=== PATIENT | male | born 1945 | race Caucasian/White ===

== ENCOUNTER → 2016-11-18 | Outpatient (REF) | payer MEDICARE, OTHER ==
[~2016-11-18] MED LIST: ACTO30TA7 PO; AMLO5TAB2 PO; ASPI81TA85 PO; AUGM875T27 PO; CHLO25TA PO; K-TA1TAB PO; MAGN64TASA PO; METF500T PO; NOVO70IN SC; OMEP40CA2 PO; SIMV10TA2 PO; VENL25TA2 PO; VENL75TA2 PO; VICO5TA PO; ZOCO10TA PO
[2016-11-18 12:54] LABS: BASO % 0.5 % (0.0-1.0); EOS # 0.2 K/mm3 (0.0-0.50); EOS % 3.3 % (0.0-3.0); LARGE UNSTAINED CELL # 0.2 K/mm3 (0.0-0.4); LYMPH # 1.6 K/mm3 (1.5-4.5); LYMPH % 32.3 % (24.0-44.0); MEAN CORPUSCULAR HEMOGLOBIN 25.4 pg (27.0-33.0); MEAN CORPUSCULAR HGB CONC 30.4 g/dl (32.0-36.5); MEAN CORPUSCULAR VOLUME 83.5 fl (80.0-96.0); MONO # 0.4 K/mm3 (0.0-0.8); MONO % 9.1 % (0.0-5.0); NEUTROPHILS # 2.5 K/mm3 (1.8-7.7); NEUTROPHILS % 50.7 % (36.0-66.0); PLATELET COUNT, AUTOMATED 367 k/mm3 (150-450); RED CELL DISTRIBUTION WIDTH 15.2 % (11.5-14.5); WHITE BLOOD COUNT 4.8 K/mm3 (4.0-10.0)
[2016-11-18 13:01] LABS: ALBUMIN 3.9 GM/DL (3.2-5.2); ALBUMIN/GLOBULIN RATIO 1.22 (1.00-1.93); BILIRUBIN,TOTAL 0.4 MG/DL (0.2-1.0); CREATININE FOR GFR 1.66 MG/DL (0.70-1.30); GLOMERULAR FILTRATION RATE 43.8 (>42); POTASSIUM SERUM 4.8 MEQ/L (3.5-5.1); TOTAL PROTEIN 7.1 GM/DL (6.4-8.2)
[2016-11-19 13:53] LABS: FREE T4 0.98 NG/DL (0.76-1.46)
== END ==
LOC: M SFHCADAM 09:24
PROVIDERS: ATTEND Family Medicine
DX: Z00.00 Encounter for general adult medical examination without abnormal findings (principal); E11.9 Type 2 diabetes mellitus without complications; R00.0 Tachycardia, unspecified

== ENCOUNTER → 2016-12-23 | Outpatient (REF) | payer MEDICARE, OTHER ==
[2016-12-23 18:26] LABS: PERCENT SATURATION 7.5 % (19.7-37.4)
[2016-12-24 13:49] LABS: FREE T4 0.91 NG/DL (0.76-1.46)
== END ==
LOC: M LAB REF 17:23
PROVIDERS: ATTEND Internal Medicine Nephrology
DX: R00.0 Tachycardia, unspecified (principal); D64.9 Anemia, unspecified

== ENCOUNTER 2017-01-05 07:52 | Outpatient (CLI) | payer MEDICARE, BC, OTHER ==
[~2017-01-05] VITALS: Ht 174 cm; Wt 81.8 kg
[2017-01-05] MEDS ORDERED: UROCTAB2 PO (08:32)
[2017-01-05] MEDS ORDERED: BISO5TAB5 PO (08:32)
[2017-01-05] MEDS ORDERED: JANU25TA PO (08:34)
[2017-01-05] MEDS ORDERED: INSUDET SC (08:34)
[2017-01-05] MEDS ORDERED: LOSA25TA8 PO (08:37)
[2017-01-05] MEDS ORDERED: VITA200016 PO (08:40)
[2017-01-05] MEDS ORDERED: IRON SUCROSE 25 MG in NS 50 ML IV ONE (09:00)
[2017-01-05] MEDS ORDERED: IRON SUCROSE 475 MG in NS 250 ML IV ONE (10:00)
== END 2017-01-05 13:10 | disposition home or self-care (01) ==
LOC: M INFU 07:52
PROVIDERS: ATTEND Internal Medicine Nephrology
DX: D50.9 Iron deficiency anemia, unspecified (principal); Z79.899 Other long term (current) drug therapy; Z79.82 Long term (current) use of aspirin; Z79.4 Long term (current) use of insulin; Z88.8 Allergy status to other drugs, medicaments and biological substances; Z91.040 Latex allergy status
CPT/HCPCS: 96365; 96366; J1756

== ENCOUNTER → 2017-02-23 | Outpatient (CLI) | payer MEDICARE, OTHER ==
[~2017-02-23] MED LIST changes: +BISO5TAB5 PO; +INSUDET SC; +JANU25TA PO; +LOSA25TA8 PO; +UROCTAB2 PO; +VITA200016 PO
== END ==
LOC: M LAB 17:34
PROVIDERS: ATTEND Internal Medicine Cardiovascular Disease
DX: R07.9 Chest pain, unspecified (principal)

== ENCOUNTER → 2017-03-09 | Outpatient (REF) | payer MEDICARE, OTHER | LOC: M LABDRAW1 15:39 | PROVIDERS: ATTEND Family Medicine | DX: H90.3 Sensorineural hearing loss, bilateral (principal); E11.9 Type 2 diabetes mellitus without complications ==

== ENCOUNTER → 2017-03-09 | Outpatient (REF) | payer MEDICARE, OTHER ==
[2017-03-09 16:15] LABS: CREATININE FOR GFR 1.48 MG/DL (0.70-1.30)
== END ==
LOC: M LABDRAW1 15:38
PROVIDERS: ATTEND Otolaryngology
DX: H90.3 Sensorineural hearing loss, bilateral (principal)

== ENCOUNTER → 2017-03-18 | Outpatient (CLI) | payer MEDICARE, BC, OTHER ==
--- NOTE | 2017-03-18 11:49 | REP ---
Chest two views HISTORY: Dyspnea Comparison: 12/02/2014 The lungs are clear. The heart is normal in size. The pulmonary vasculature is normal in appearance. A hiatal hernia is present. The bony structure is intact. IMPRESSION: No acute disease. Signed by Ricki Madison MD 03/18/2017 11:41 A
== END ==
LOC: M RAD 10:54
PROVIDERS: ATTEND Family Medicine
DX: R06.09 Other forms of dyspnea (principal)

== ENCOUNTER → 2017-03-18 | Outpatient (CLI) | payer MEDICARE, BC, OTHER ==
--- NOTE | 2017-03-18 13:08 | REP ---
MRI INTERNAL AUDITORY CANALS WITHOUT AND WITH CONTRAST: HISTORY: Sensorineural hearing loss. CONTRAST: ProHance 8 mL. COMPARISON: 07/13/2013. Areas of increased signal intensity on T2-weighted images are present in the basal ganglia. These represent old lacunar infarctions. Areas of increased signal intensity on T2-weighted images present in the periventricular and subcortical white matter and aster. This represents small vessel ischemic disease. There is no intraparenchymal hemorrhage, acute infarct, mass, or midline shift. The sella turcica is partially empty. There is no abnormal enhancement. The ventricular system and cortical sulci are dilated consistent with minimal volume loss. There is no extracerebral collection. There is no cerebellopontine angle mass. The inner ear structures are normal in appearance. The mastoid air cells are clear. Mucosal thickening is present in the maxillary sinuses. A right ocular prosthesis is present. IMPRESSION: 1. Old bilateral basal ganglia lacunar infarctions. 2. Small vessel ischemic disease. 3. Minimal volume loss. Signed by Ricki Madison MD 03/18/2017 01:34 P
== END ==
LOC: M RAD 10:59
PROVIDERS: ATTEND Otolaryngology
DX: R06.09 Other forms of dyspnea (principal); H90.3 Sensorineural hearing loss, bilateral
CPT/HCPCS: 70553; 71020; A9576

== ENCOUNTER → 2017-06-15 | Outpatient (REF) | payer MEDICARE, BC, OTHER ==
[~2017-06-15] MED LIST changes: +ACTO30TA15 PO; -ACTO30TA7 PO; -AUGM875T27 PO; +AUGM875T28 PO; +NOVO1INJ4 SC; -NOVO70IN SC
== END ==
LOC: M LABDRAW1 13:33
PROVIDERS: ATTEND Family Medicine
DX: E11.9 Type 2 diabetes mellitus without complications (principal)

== ENCOUNTER → 2017-09-02 | Outpatient (REF) | payer MEDICARE, OTHER | LOC: M SFHCADAM 18:12 | PROVIDERS: ATTEND Family Medicine | DX: E11.9 Type 2 diabetes mellitus without complications (principal) ==

== ENCOUNTER → 2017-12-08 | Outpatient (REF) | payer MEDICARE, OTHER ==
[2017-12-08 16:01] LABS: ALBUMIN 3.7 GM/DL (3.2-5.2); ALBUMIN/GLOBULIN RATIO 1.09 (1.00-1.93); ALKALINE PHOSPHATASE 68 U/L (45-117); ALT/SGPT 34 U/L (12-78); ANION GAP 9 MEQ/L (8-16); AST/SGOT 23 U/L (7-37); BILIRUBIN,TOTAL 0.4 MG/DL (0.2-1.0); BLOOD UREA NITROGEN 24 MG/DL (7-18); CALCIUM LEVEL 9.2 MG/DL (8.8-10.2); CARBON DIOXIDE LEVEL 28 MEQ/L (21-32); CHLORIDE LEVEL 102 MEQ/L (98-107); CREATININE FOR GFR 1.56 MG/DL (0.70-1.30); GLOMERULAR FILTRATION RATE 46.9 (>42); GLUCOSE, FASTING 167 MG/DL (70-100); POTASSIUM SERUM 4.3 MEQ/L (3.5-5.1); SODIUM LEVEL 139 MEQ/L (136-145); TOTAL PROTEIN 7.1 GM/DL (6.4-8.2)
[2017-12-08 16:04] LABS: ESTIMATED AVERAGE GLUCOSE 206 MG/DL (60-110); HEMOGLOBIN A1c 8.8 %
== END ==
LOC: M LABDRAW1 14:55
DX: E11.69 Type 2 diabetes mellitus with other specified complication (principal)
CPT/HCPCS: 80053

== ENCOUNTER → 2017-12-25 | Outpatient (REF) | payer MEDICARE, OTHER ==
[2017-12-25 13:03] LABS: ALBUMIN 3.8 GM/DL (3.2-5.2); ALBUMIN/GLOBULIN RATIO 1.09 (1.00-1.93); ALKALINE PHOSPHATASE 62 U/L (45-117); ALT/SGPT 31 U/L (12-78); ANION GAP 6 MEQ/L (8-16); AST/SGOT 18 U/L (7-37); BILIRUBIN,TOTAL 0.5 MG/DL (0.2-1.0); BLOOD UREA NITROGEN 20 MG/DL (7-18); CALCIUM LEVEL 8.8 MG/DL (8.8-10.2); CARBON DIOXIDE LEVEL 30 MEQ/L (21-32); CHLORIDE LEVEL 103 MEQ/L (98-107); CREATININE FOR GFR 1.61 MG/DL (0.70-1.30); GLOMERULAR FILTRATION RATE 45.3 (>42); GLUCOSE, FASTING 174 MG/DL (70-100); POTASSIUM SERUM 4.7 MEQ/L (3.5-5.1); SODIUM LEVEL 139 MEQ/L (136-145); TOTAL PROTEIN 7.3 GM/DL (6.4-8.2)
[2017-12-25 13:34] LABS: ESTIMATED AVERAGE GLUCOSE 212 MG/DL (60-110)
== END ==
LOC: M SFHCADAM 09:33
DX: E11.69 Type 2 diabetes mellitus with other specified complication (principal)
CPT/HCPCS: 80053

== ENCOUNTER → 2017-12-29 | Outpatient (CLI) | payer MEDICARE, BC, OTHER | LOC: M RAD 12:57 | DX: G44.52 New daily persistent headache (NDPH) (principal); I73.9 Peripheral vascular disease, unspecified; G93.9 Disorder of brain, unspecified | CPT/HCPCS: 70551 ==

== ENCOUNTER → 2018-04-01 | Outpatient (REF) | payer MEDICARE, OTHER ==
[2018-04-01 20:33] LABS: ESTIMATED AVERAGE GLUCOSE 200 MG/DL (60-110); HEMOGLOBIN A1c 8.6 %
== END ==
LOC: M SFHCADAM 13:17
DX: E11.69 Type 2 diabetes mellitus with other specified complication (principal)
CPT/HCPCS: 83036

== ENCOUNTER → 2018-06-25 | Outpatient (REF) | payer MEDICARE, OTHER ==
[2018-06-25 20:48] LABS: ESTIMATED AVERAGE GLUCOSE 189 MG/DL (60-110); HEMOGLOBIN A1c 8.2 %
== END ==
LOC: M SFHCADAM 11:23
DX: E11.69 Type 2 diabetes mellitus with other specified complication (principal)
CPT/HCPCS: 83036

== ENCOUNTER → 2018-10-06 | Outpatient (REF) | payer MEDICARE, OTHER ==
[~2018-10-06] MED LIST changes: +AMLO5TAB4 PO; +LOSA25TA33 PO; -LOSA25TA8 PO
[2018-10-06 13:59] LABS: HEMOGLOBIN A1c 8.5 %
== END ==
LOC: M SFHCADAM 08:04
PROVIDERS: ATTEND Family Medicine
DX: E11.9 Type 2 diabetes mellitus without complications (principal)

== ENCOUNTER → 2019-01-06 | Outpatient (REF) | payer MEDICARE, OTHER ==
[~2019-01-06] MED LIST changes: -AMLO5TAB4 PO; +AMLO5TAB6 PO; +LOSA25TA14 PO; -LOSA25TA33 PO
== END ==
LOC: M SFHCADAM 09:19
PROVIDERS: ATTEND Family Medicine
DX: E11.9 Type 2 diabetes mellitus without complications (principal)

== ENCOUNTER → 2019-04-20 | Outpatient (REF) | payer MEDICARE, OTHER ==
[~2019-04-20] MED LIST changes: +CHLO125TA PO; -CHLO25TA PO
[2019-04-20 19:50] LABS: HEMOGLOBIN A1c 8.4 %
== END ==
LOC: M SFHCADAM 11:49
PROVIDERS: ATTEND Family Medicine
DX: E11.9 Type 2 diabetes mellitus without complications (principal)
CPT/HCPCS: 83036; G0463

== ENCOUNTER → 2019-07-26 | Outpatient (REF) | payer MEDICARE, OTHER ==
[~2019-07-26] MED LIST changes: -BISO5TAB5 PO; +BISO5TAB9 PO
[2019-07-26 14:41] LABS: HEMOGLOBIN A1c 8.3 %
== END ==
LOC: M SFHCADAM 11:03
PROVIDERS: ATTEND Family Medicine
DX: E11.69 Type 2 diabetes mellitus with other specified complication (principal)

== ENCOUNTER → 2019-11-02 | Outpatient (REF) | payer MEDICARE, OTHER ==
[~2019-11-02] MED LIST changes: +BISO5TAB14 PO; -BISO5TAB9 PO; +OMEP40CA97 PO
[2019-11-02 13:00] LABS: ALBUMIN 3.6 GM/DL (3.2-5.2); BILIRUBIN,TOTAL 0.5 MG/DL (0.2-1.0); CALCIUM LEVEL 8.7 MG/DL (8.8-10.2); CREATININE FOR GFR 1.44 MG/DL (0.70-1.30); GLOMERULAR FILTRATION RATE 51.2 (>42); POTASSIUM SERUM 4.2 MEQ/L (3.5-5.1); TOTAL PROTEIN 6.8 GM/DL (6.4-8.2)
[2019-11-02 14:56] LABS: HEMOGLOBIN A1c 8.7 %
== END ==
LOC: M SFHCADAM 09:44
PROVIDERS: ATTEND Family Medicine
DX: E11.69 Type 2 diabetes mellitus with other specified complication (principal)

== ENCOUNTER → 2019-11-15 | Outpatient (REF) | payer MEDICARE, OTHER ==
[2019-11-15 13:37] LABS: APPEARANCE, URINE CLEAR (CLEAR); BACTERIA, URINE AUTO NEGATIVE (NEGATIVE); BILIRUBIN, URINE AUTO NEGATIVE (NEGATIVE); BLOOD, URINE BLOOD NEGATIVE (NEGATIVE); COLOR, URINE YELLOW (YELLOW); GLUCOSE, URINE (UA) AUTO 3+ mg/dL (NEGATIVE); KETONE, URINE AUTO TRACE mg/dL (NEGATIVE); LEUKOCYTE ESTERASE, URINE AUTO NEGATIVE (NEGATIVE); MUCUS, URINE SMALL (NEGATIVE); NITRITE, URINE AUTO NEGATIVE (NEGATIVE); PROTEIN, URINE AUTO NEGATIVE (NEGATIVE); RBC, URINE AUTO 1 /HPF (0-3); SQUAMOUS EPITHELIAL CELL UR AU 0 /HPF (0-6); UROBILINOGEN, URINE AUTO 0.2 mg/dL (0.0-2.0); WBC, URINE AUTO 1 /HPF (0-3)
[2019-11-15 14:13] LABS: HEMOGLOBIN A1c 8.2 %
== END ==
LOC: M SFHCADAM 08:38
PROVIDERS: ATTEND Family Medicine
DX: E11.9 Type 2 diabetes mellitus without complications (principal); R39.12 Poor urinary stream; N50.819 Testicular pain, unspecified
CPT/HCPCS: 81001; 83036; G0103

== ENCOUNTER → 2020-01-16 | Outpatient (REF) | payer MEDICARE, OTHER ==
[2020-01-16 17:35] LABS: CALCIUM LEVEL 8.9 MG/DL (8.8-10.2); CREATININE FOR GFR 2.28 MG/DL (0.70-1.30); GLOMERULAR FILTRATION RATE 30.1 (>42); HEMOGLOBIN A1c 8.2 %; POTASSIUM SERUM 4.9 MEQ/L (3.5-5.1)
== END ==
LOC: M SFHCADAM 15:10
PROVIDERS: ATTEND Family Medicine
DX: E11.69 Type 2 diabetes mellitus with other specified complication (principal)

== ENCOUNTER → 2020-06-18 | Outpatient (REF) | payer MEDICARE, OTHER ==
[~2020-06-18] MED LIST changes: +AMLO1TAB24 PO; -AMLO5TAB6 PO; -ASPI81TA85 PO; +ASPI81TA86 PO
[2020-06-18 19:29] LABS: HEMATOCRIT 48.5 % (42.0-52.0); HEMOGLOBIN 16.3 g/dl (13.5-17.5); MEAN CORPUSCULAR HEMOGLOBIN 31.7 pg (27.0-33.0); MEAN CORPUSCULAR HGB CONC 33.6 g/dl (32.0-36.5); MEAN CORPUSCULAR VOLUME 94.4 fl (80.0-96.0); PLATELET COUNT, AUTOMATED 282 10^3/uL (150-450); RED BLOOD COUNT 5.14 10^6/uL (4.30-6.10); WHITE BLOOD COUNT 7.7 10^3/uL (4.0-10.0)
[2020-06-18 19:41] LABS: ALBUMIN 3.7 GM/DL (3.2-5.2); BILIRUBIN,TOTAL 0.4 MG/DL (0.2-1.0); CALCIUM LEVEL 9.7 MG/DL (8.8-10.2); CREATININE FOR GFR 1.41 MG/DL (0.70-1.30); GLOMERULAR FILTRATION RATE 52.5 (>42); POTASSIUM SERUM 4.5 MEQ/L (3.5-5.1); THYROID STIMULATING HORMONE 1.32 uIU/ML (0.358-3.740); TOTAL PROTEIN 7.2 GM/DL (6.4-8.2)
[2020-06-18 19:47] LABS: HEMOGLOBIN A1c 8.4 %
== END ==
LOC: M LABDRWAD 18:28
PROVIDERS: ATTEND Family Medicine
DX: E11.8 Type 2 diabetes mellitus with unspecified complications (principal); I10 Essential (primary) hypertension

== ENCOUNTER → 2020-08-29 | Outpatient (REF) | payer MEDICARE, OTHER ==
[2020-08-29 18:04] LABS: PERCENT SATURATION 50.5 % (19.7-50.0)
== END ==
LOC: M LAB REF 17:03
PROVIDERS: ATTEND Nurse Practitioner Family
DX: D50.9 Iron deficiency anemia, unspecified (principal)

== ENCOUNTER → 2020-09-20 | Outpatient (REF) | payer MEDICARE, OTHER ==
[2020-09-20 20:11] LABS: ALBUMIN 3.7 GM/DL (3.2-5.2); BILIRUBIN,TOTAL 0.5 MG/DL (0.2-1.0); CALCIUM LEVEL 9.3 MG/DL (8.8-10.2); CREATININE FOR GFR 1.48 MG/DL (0.70-1.30); GLOMERULAR FILTRATION RATE 49.5 (>42); POTASSIUM SERUM 4.6 MEQ/L (3.5-5.1); TOTAL PROTEIN 7.2 GM/DL (6.4-8.2)
[2020-09-20 20:36] LABS: HEMOGLOBIN A1c 8.6 %
== END ==
LOC: M SFHCADAM 16:18
PROVIDERS: ATTEND Family Medicine
DX: E11.8 Type 2 diabetes mellitus with unspecified complications (principal)

== ENCOUNTER → 2021-06-04 | Outpatient (REF) | payer MEDICARE, OTHER ==
[~2021-06-04] MED LIST changes: +OMEP40CA4 PO; -OMEP40CA97 PO
== END ==
LOC: M LAB REF 17:11
PROVIDERS: ATTEND Nurse Practitioner Family
DX: E83.42 Hypomagnesemia (principal)

== ENCOUNTER → 2021-06-14 | Outpatient (CLI) | payer MEDICARE, BC, OTHER ==
--- NOTE | 2021-06-14 15:14 | REP ---
INDICATION: STENOSIS COMPARISON: None. TECHNIQUE: Boyd scale and color Doppler evaluation using linear high frequency transducer Findings: FINDINGS: Two-dimensional boyd scale and color images demonstrate moderate atheromatous plaquing with laminar flow and no appreciable narrowing. Color Doppler interrogation demonstrates normal arterial wave patterns and velocities with no significant spectral broadening. Normal flow direction is appreciated in the bilateral vertebral arteries. ICA peak systolic velocity: Right 61.3 cm/s; Left 68.6 cm/s ICA diastolic velocity: Right 16.8 cm/s; Left 15.7 cm/s ECA peak systolic velocity: Right 70.2 cm/s; Left 68.3 cm/s CCA peak systolic velocity: Right 79.5 cm/s; Left 119 cm/s ICA/CCA ratio: Right 0.77 cm/s; Left 0.58 cm/s IMPRESSION: No hemodynamically significant areas of narrowing or stenosis appreciated. Based on set standards narrowing falls within the less than 50% range. <Electronically signed by Murphy Dawson > 06/14/21 [id number]
== END ==
LOC: M RAD 14:20
PROVIDERS: ATTEND Nurse Practitioner Family
DX: I65.22 Occlusion and stenosis of left carotid artery (principal)

== ENCOUNTER → 2021-06-28 | Outpatient (CLI) | payer MEDICARE, BC, OTHER ==
--- NOTE | 2021-06-28 14:29 | REP ---
INDICATION: PAIN IN RT SHOULDER. COMPARISON: None. TECHNIQUE: Multiple views FINDINGS: The acromioclavicular and glenohumeral relationships are within normal limits. There is no acute fracture, dislocation, or subluxation. IMPRESSION: Within normal limits <Electronically signed by Robin Randle > 06/28/21 [id number]
== END ==
LOC: M SOG 13:36
PROVIDERS: ATTEND Orthopaedic Surgery Sports Medicine
DX: M25.511 Pain in right shoulder (principal)

== ENCOUNTER → 2021-12-25 | Outpatient (REF) | payer MEDICARE, BC, OTHER ==
[~2021-12-25] MED LIST changes: +LOSA25TA13 PO; -LOSA25TA14 PO
[2021-12-25 13:14] LABS: HEMATOCRIT 47.7 % (42.0-52.0); HEMOGLOBIN 16.1 g/dl (13.5-17.5); MEAN CORPUSCULAR HEMOGLOBIN 31.4 pg (27.0-33.0); MEAN CORPUSCULAR HGB CONC 33.8 g/dl (32.0-36.5); MEAN CORPUSCULAR VOLUME 93.2 fl (80.0-96.0); PLATELET COUNT, AUTOMATED 236 10^3/uL (150-450); RED BLOOD COUNT 5.12 10^6/uL (4.30-6.10); WHITE BLOOD COUNT 6.2 10^3/uL (4.0-10.0)
[2021-12-25 14:37] LABS: ALBUMIN 3.6 GM/DL (3.2-5.2); BILIRUBIN,TOTAL 0.6 MG/DL (0.2-1.0); CALCIUM LEVEL 9.1 MG/DL (8.8-10.2); CHOLESTEROL RISK RATIO 1.884 (<5); CREATININE FOR GFR 1.51 MG/DL (0.70-1.30); GLOMERULAR FILTRATION RATE 48.2 (>42); POTASSIUM SERUM 4.3 MEQ/L (3.5-5.1)
[2021-12-25 14:45] LABS: MAU/CREAT RATIO 225.7 MCG/MG (0.0-30.0)
== END ==
LOC: M LABDRWAD 12:36
PROVIDERS: ATTEND Internal Medicine Endocrinology, Diabetes & Metabolism
DX: E11.65 Type 2 diabetes mellitus with hyperglycemia (principal)

== ENCOUNTER → 2022-05-29 | Outpatient (REF) | payer MEDICARE, OTHER ==
[~2022-05-29] MED LIST changes: +SIMV-252 PO; -ZOCO10TA PO
[2022-05-29 16:36] LABS: BASO % 0.4 % (0.0-1.0); HEMATOCRIT 47.8 % (42.0-52.0); HEMOGLOBIN 15.9 g/dl (13.5-17.5); MEAN CORPUSCULAR HEMOGLOBIN 31.3 pg (27.0-33.0); MEAN CORPUSCULAR HGB CONC 33.3 g/dl (32.0-36.5); MEAN CORPUSCULAR VOLUME 94.1 fl (80.0-96.0); NEUTROPHILS % 71.4 % (36.0-66.0); PLATELET COUNT, AUTOMATED 269 10^3/uL (150-450); RED BLOOD COUNT 5.08 10^6/uL (4.30-6.10); WHITE BLOOD COUNT 9.8 10^3/uL (4.0-10.0)
[2022-05-29 16:37] LABS: EOS # 0.1 10^3/uL (0.0-0.5); LYMPH # 1.5 10^3/uL (1.5-5.0); MONO # 1.2 10^3/uL (0.0-0.8)
[2022-05-29 17:47] LABS: ALBUMIN 3.7 GM/DL (3.2-5.2); BILIRUBIN,TOTAL 0.7 MG/DL (0.2-1.0); CALCIUM LEVEL 9.4 MG/DL (8.8-10.2); CREATININE FOR GFR 1.46 MG/DL (0.70-1.30); GLOMERULAR FILTRATION RATE 50.1 (>42); POTASSIUM SERUM 4.7 MEQ/L (3.5-5.1); TOTAL PROTEIN 7.3 GM/DL (6.4-8.2)
== END ==
LOC: M SFHCADAM 14:27
PROVIDERS: ATTEND Family Medicine
DX: Z01.818 Encounter for other preprocedural examination (principal); Z79.899 Other long term (current) drug therapy

== ENCOUNTER → 2022-08-21 | Outpatient (CLI) | payer MEDICARE, BC, OTHER | LOC: M RAD 12:21 | PROVIDERS: ATTEND Nurse Practitioner Family | DX: N18.31 Chronic kidney disease, stage 3a (principal); N28.1 Cyst of kidney, acquired; N13.30 Unspecified hydronephrosis ==

== ENCOUNTER → 2022-09-08 | Outpatient (REF) | payer MEDICARE, OTHER ==
[2022-09-08 16:22] LABS: BASO % 0.5 % (0.0-1.0); EOS # 0.2 10^3/uL (0.0-0.5); EOS % 1.9 % (0.0-3.0); HEMATOCRIT 50.9 % (42.0-52.0); HEMOGLOBIN 16.4 g/dl (13.5-17.5); LYMPH # 1.7 10^3/uL (1.5-5.0); LYMPH % 21.9 % (24.0-44.0); MEAN CORPUSCULAR HEMOGLOBIN 31.6 pg (27.0-33.0); MEAN CORPUSCULAR HGB CONC 32.2 g/dl (32.0-36.5); MEAN CORPUSCULAR VOLUME 98.1 fl (80.0-96.0); MONO % 12.8 % (2.0-8.0); NEUTROPHILS % 62.6 % (36.0-66.0); PLATELET COUNT, AUTOMATED 279 10^3/uL (150-450); RED BLOOD COUNT 5.19 10^6/uL (4.30-6.10); WHITE BLOOD COUNT 7.9 10^3/uL (4.0-10.0)
[2022-09-08 16:33] LABS: ALBUMIN 3.5 G/DL (3.2-5.2); BILIRUBIN,TOTAL 0.7 MG/DL (0.3-1.2); CALCIUM LEVEL 9.5 MG/DL (8.3-10.6); CREATININE FOR GFR 1.52 MG/DL (0.70-1.30); GLOMERULAR FILTRATION RATE 47.7 (>42); POTASSIUM SERUM 4.9 MMOL/L (3.5-5.1); THYROID STIMULATING HORMONE 1.342 uIU/ML (0.55-4.78); TOTAL PROTEIN 6.5 G/DL (5.7-8.2)
[2022-09-08 19:58] LABS: HEMOGLOBIN A1c 8.8 % (4.0-6.0)
== END ==
LOC: M SFHCADAM 14:29
PROVIDERS: ATTEND Family Medicine
DX: E11.9 Type 2 diabetes mellitus without complications (principal); R19.7 Diarrhea, unspecified; R06.00 Dyspnea, unspecified

== ENCOUNTER → 2022-09-08 | Outpatient (CLI) | payer MEDICARE, OTHER | LOC: M ADAMS 14:33 | PROVIDERS: ATTEND Family Medicine | DX: R06.00 Dyspnea, unspecified (principal); R19.7 Diarrhea, unspecified; E11.9 Type 2 diabetes mellitus without complications ==

== ENCOUNTER → 2022-09-16 | Outpatient (CLI) | payer MEDICARE, BC, OTHER ==
[~2022-09-16] MED LIST changes: +ISOVUE-370 76% 100ML VIAL As Ordered ONE
== END ==
LOC: M RAD 08:24
PROVIDERS: ATTEND Family Medicine
DX: N13.30 Unspecified hydronephrosis (principal); N20.0 Calculus of kidney; N28.1 Cyst of kidney, acquired; K44.9 Diaphragmatic hernia without obstruction or gangrene; K57.30 Diverticulosis of large intestine without perforation or abscess without bleeding
CPT/HCPCS: 74178; Q9967

== ENCOUNTER → 2023-04-08 | Outpatient (REF) | payer MEDICARE, OTHER ==
[~2023-04-08] MED LIST changes: -ISOVUE-370 76% 100ML VIAL As Ordered ONE
[2023-04-08 16:20] LABS: BASO % 0.3 % (0.0-1.0); EOS # 0.3 10^3/uL (0.0-0.5); EOS % 3.7 % (0.0-3.0); HEMATOCRIT 51.3 % (42.0-52.0); HEMOGLOBIN 17.1 g/dl (13.5-17.5); LYMPH # 1.7 10^3/uL (1.5-5.0); LYMPH % 24.8 % (24.0-44.0); MEAN CORPUSCULAR HEMOGLOBIN 31.4 pg (27.0-33.0); MEAN CORPUSCULAR HGB CONC 33.3 g/dl (32.0-36.5); MEAN CORPUSCULAR VOLUME 94.3 fl (80.0-96.0); MONO # 1.1 10^3/uL (0.0-0.8); MONO % 15.4 % (2.0-8.0); NEUTROPHILS # 3.9 10^3/uL (1.5-8.5); NEUTROPHILS % 55.7 % (36.0-66.0); PLATELET COUNT, AUTOMATED 278 10^3/uL (150-450); RED BLOOD COUNT 5.44 10^6/uL (4.30-6.10)
[2023-04-08 16:47] LABS: ALBUMIN 3.7 G/DL (3.2-5.2); BILIRUBIN,TOTAL 0.5 MG/DL (0.3-1.2); CALCIUM LEVEL 9.5 MG/DL (8.3-10.6); CREATININE FOR GFR 1.39 MG/DL (0.70-1.30); GLOMERULAR FILTRATION RATE 52.9 (>42); MAGNESIUM LEVEL 1.8 MG/DL (1.8-2.4); POTASSIUM SERUM 4.6 MMOL/L (3.5-5.1); TOTAL PROTEIN 6.9 G/DL (5.7-8.2)
[2023-04-08 16:48] LABS: FREE T4 0.96 NG/DL (0.89-1.76); THYROID STIMULATING HORMONE 0.834 uIU/ML (0.55-4.78)
== END ==
LOC: M SFHCADAM 15:12
PROVIDERS: ATTEND Physician Assistant
DX: R06.02 Shortness of breath (principal); R53.83 Other fatigue; M62.81 Muscle weakness (generalized); R26.89 Other abnormalities of gait and mobility; N18.31 Chronic kidney disease, stage 3a

== ENCOUNTER → 2023-04-08 | Outpatient (CLI) | payer MEDICARE, OTHER | LOC: M ADAMS 15:23 | PROVIDERS: ATTEND Physician Assistant | DX: R06.02 Shortness of breath (principal); K44.9 Diaphragmatic hernia without obstruction or gangrene ==

== ENCOUNTER → 2023-04-22 | Outpatient (REF) | payer MEDICARE, OTHER | LOC: M SFHCADAM 14:25 | PROVIDERS: ATTEND Physician Assistant | DX: R53.83 Other fatigue (principal) ==

== ENCOUNTER → 2023-04-29 | Outpatient (CLI) | payer MEDICARE, BC, OTHER | LOC: M RAD 14:29 | PROVIDERS: ATTEND Physician Assistant | DX: M62.81 Muscle weakness (generalized) (principal); R26.89 Other abnormalities of gait and mobility ==

== ENCOUNTER 2023-07-11 12:52 | Inpatient (IN) | payer MEDICARE, BC, OTHER ==
[~2023-07-11] VITALS: Ht 175.3 cm; Wt 69.5 kg
[~2023-07-11 12:52] MED LIST changes: +ACET-683 PO; +ACET32TAB PO; +AMIT10TA7 PO; +ASPI81TA26 PO; +BENZ-18 PO; +BENZ1LOZ2 PO; +ENOX40IN3 SC; +GABA-1171 PO; +GLUCLIQ37 PO; +HUMA100I5 SC; +LANTINJ4 SC; +LEVO1TAB39 PO; +MELO15TA28 PO; +MM S100C PO; +MONU5.636 PO; +NYST-38 SS; +PANT40TA29 PO; +PRED10TA2 PO; +ROSU20TA61 PO; +SENN-186 PO; +TRAM50TA2 PO
[2023-07-11] MEDS ORDERED: MOM 30ML SUSPENSION UDC PO PRN (14:25)
[2023-07-11] MEDS ORDERED: GLUCOSE 4GM CHEW TABLET PO PRN (14:40)
[2023-07-11] MEDS ORDERED: SODIUM CHLORIDE 0.9% INJ 10 ML SYR IV PRN (14:40)
[2023-07-11] MEDS ORDERED: CEPACOL LOZENGE PO PRN (14:40)
[2023-07-11] MEDS ORDERED: GLUCAGON INJ 1MG VIAL SC PRN (14:40)
[2023-07-11] MEDS ORDERED: MAGIC MOUTHWASH SUSPENSION BTL SSP PRN (14:40)
[2023-07-11 15:14] VITALS: BP 134/75; TEMP 97.7; O2SAT 90
[2023-07-11] MEDS: BENZONATATE 100MG CAPSULE PO SCH ×2 (16:28→21:39)
[2023-07-11] MEDS: NYSTATIN 500,000U/5ML SUSP UDC SS SCH ×2 (16:28→21:39)
[2023-07-11] MEDS: HEPARIN SOD (PORCINE) 5000UNITS/ML 1ML VIAL/SYRINGE SQ SCH ×2 (16:28→21:40)
[2023-07-11] MEDS: ASPIRIN 325 MG TAB PO SCH (16:32)
[2023-07-11 16:44] LABS: INR 1.12; PARTIAL THROMBOPLASTIN TIME 31.6 SECONDS (24.8-34.2); PROTHROMBIN TIME 14.1 SECONDS (12.5-14.5)
[2023-07-11] MEDS ORDERED: NEOSPORIN OINT 0.9 GM PKT TOP STA (17:07)
[2023-07-11] MEDS: INSULIN LISPRO (NovoLOG) PER UNIT SC SCH ×2 (17:12→21:00)
[2023-07-11] MEDS ORDERED: SODIUM CHLORIDE 0.9% INJ 10 ML SYR IV SCH (18:00)
[2023-07-11] MEDS: BISACODYL 10MG SUPP PR SCH (18:15)
[2023-07-11 20:36] VITALS: BP 134/76; TEMP 97.5; O2SAT 96
[2023-07-11] MEDS ORDERED: GABAPENTIN 100 MG CAP PO SCH (21:00)
[2023-07-11] MEDS: ACETAMINOPHEN 500 MG TAB PO SCH (21:39)
[2023-07-11] MEDS: DOCUSATE SODIUM 100MG CAPSULE PO SCH (21:39)
[2023-07-11] MEDS: GABAPENTIN 100 MG CAP PO SCH (21:39)
[2023-07-11] MEDS: METAMUCIL (PSYLLIUM) PACKET PO SCH (21:40)
[2023-07-11] MEDS: MIRALAX *UNIT DOSE* 17GM PACKET PO SCH (21:40)
[2023-07-11] MEDS: LEVEMIR (INSULIN DETEMIR) 1 UNITS/0.01ML SC SCH (21:40)
[2023-07-11] MEDS: QUEtiapine FUMARATE 12.5 MG HALF-TAB PO SCH (21:42)
[2023-07-11] MEDS: SENNA 8.6 MG TAB (SENOKOT) PO SCH (21:42)
[2023-07-11] MEDS ORDERED: CEFEPIME HCL 1 GM in D5W MINI-BAG PLUS 50 ML IV SCH (23:00)
[2023-07-12] VITALS (10 sets, daily range): BP systolic 116–125; BP diastolic 71–81; TEMP 97.3–98.2; O2SAT 90–98
[2023-07-12] MEDS: HEPARIN SOD (PORCINE) 5000UNITS/ML 1ML VIAL/SYRINGE SQ SCH ×3 (05:34→21:18)
[2023-07-12 06:13] LABS: BASO % 0.2 % (0.0-1.0); EOS # 0.2 10^3/uL (0.0-0.5); EOS % 1.8 % (0.0-3.0); HEMATOCRIT 29.4 % (42.0-52.0); HEMOGLOBIN 9.2 g/dl (13.5-17.5); LYMPH # 1.5 10^3/uL (1.5-5.0); LYMPH % 17.1 % (24.0-44.0); MEAN CORPUSCULAR HEMOGLOBIN 27.7 pg (27.0-33.0); MEAN CORPUSCULAR HGB CONC 31.3 g/dl (32.0-36.5); MEAN CORPUSCULAR VOLUME 88.6 fl (80.0-96.0); MONO # 0.9 10^3/uL (0.0-0.8); MONO % 10.3 % (2.0-8.0); NEUTROPHILS # 6.3 10^3/uL (1.5-8.5); PLATELET COUNT, AUTOMATED 353 10^3/uL (150-450); RED BLOOD COUNT 3.32 10^6/uL (4.30-6.10)
[2023-07-12 06:42] LABS: ERYTHROCYTE SEDIMENTATION RATE 113 mm/hr (0-20)
[2023-07-12 06:43] LABS: BLOOD UREA NITROGEN 20 MG/DL (9-23); CALCIUM LEVEL 8.1 MG/DL (8.3-10.6); CARBON DIOXIDE LEVEL 29 MMOL/L (20-31); CHLORIDE LEVEL 104 MMOL/L (98-107); CREATININE FOR GFR 0.83 MG/DL (0.70-1.30); GLOMERULAR FILTRATION RATE > 60.0 (>42); GLUCOSE, FASTING 115 MG/DL (74-106); POTASSIUM SERUM 4.4 MMOL/L (3.5-5.1); SODIUM LEVEL 137 MMOL/L (136-145)
[2023-07-12] MEDS: INSULIN LISPRO (NovoLOG) PER UNIT SC SCH ×4 (07:30→21:00)
[2023-07-12] MEDS ORDERED: PANTOPRAZOLE 40MG TAB (PROTONIX) PO SCH (09:00)
[2023-07-12] MEDS: NYSTATIN 500,000U/5ML SUSP UDC SS SCH ×3 (09:00→21:17)
[2023-07-12] MEDS: METAMUCIL (PSYLLIUM) PACKET PO SCH ×2 (09:00→21:00)
[2023-07-12] MEDS: ACETAMINOPHEN 500 MG TAB PO SCH ×2 (09:41→21:17)
[2023-07-12] MEDS: VENLAFAXINE 37.5 MG TAB PO SCH (09:42)
[2023-07-12] MEDS: BENZONATATE 100MG CAPSULE PO SCH ×3 (10:19→21:17)
[2023-07-12] MEDS: ATORVASTATIN 20 MG TAB PO SCH (10:19)
[2023-07-12] MEDS: DOCUSATE SODIUM 100MG CAPSULE PO SCH ×2 (10:19→21:00)
[2023-07-12] MEDS: ASPIRIN 325 MG TAB PO SCH (10:19)
[2023-07-12] MEDS: PANTOPRAZOLE 40MG TAB (PROTONIX) PO SCH (10:19)
[2023-07-12] MEDS: GABAPENTIN 100 MG CAP PO SCH ×2 (10:19→21:18)
[2023-07-12] MEDS: MIRALAX *UNIT DOSE* 17GM PACKET PO SCH ×2 (10:20→21:00)
[2023-07-12] MEDS: AVIBACTAM IV SCH ×2 (10:35→18:30)
[2023-07-12] MEDS: D5W MINI IV SCH ×2 (10:35→18:30)
[2023-07-12] MEDS: CEFTAZIDIME IV SCH ×2 (10:35→18:30)
[2023-07-12] MEDS ORDERED: ISOVUE-370 76% 100ML VIAL As Ordered ONE (12:06)
[2023-07-12] MEDS: BISACODYL 10MG SUPP PR SCH (17:31)
[2023-07-12] MEDS: SENNA 8.6 MG TAB (SENOKOT) PO SCH (21:00)
[2023-07-12] MEDS: QUEtiapine FUMARATE 12.5 MG HALF-TAB PO SCH (21:17)
[2023-07-12] MEDS: LEVEMIR (INSULIN DETEMIR) 1 UNITS/0.01ML SC SCH (21:20)
[2023-07-13] VITALS (7 sets, daily range): BP systolic 119–156; BP diastolic 71–95; TEMP 97.7–98.6; O2SAT 93–98
[2023-07-13] MEDS: CEFTAZIDIME IV SCH ×3 (02:50→18:13)
[2023-07-13] MEDS: D5W MINI IV SCH ×3 (02:50→18:13)
[2023-07-13] MEDS: AVIBACTAM IV SCH ×3 (02:50→18:13)
[2023-07-13] MEDS: HEPARIN SOD (PORCINE) 5000UNITS/ML 1ML VIAL/SYRINGE SQ SCH ×3 (05:42→22:13)
[2023-07-13 06:30] LABS: BASO % 0.2 % (0.0-1.0); EOS # 0.1 10^3/uL (0.0-0.5); EOS % 1.1 % (0.0-3.0); HEMATOCRIT 29.4 % (42.0-52.0); HEMOGLOBIN 9.4 g/dl (13.5-17.5); LYMPH # 1.1 10^3/uL (1.5-5.0); LYMPH % 12.7 % (24.0-44.0); MEAN CORPUSCULAR HEMOGLOBIN 28.1 pg (27.0-33.0); MONO # 0.9 10^3/uL (0.0-0.8); MONO % 10.2 % (2.0-8.0); NEUTROPHILS # 6.7 10^3/uL (1.5-8.5); NEUTROPHILS % 75.2 % (36.0-66.0); PLATELET COUNT, AUTOMATED 351 10^3/uL (150-450); RED BLOOD COUNT 3.34 10^6/uL (4.30-6.10)
[2023-07-13 07:01] LABS: BLOOD UREA NITROGEN 16 MG/DL (9-23); CALCIUM LEVEL 7.7 MG/DL (8.3-10.6); CARBON DIOXIDE LEVEL 30 MMOL/L (20-31); CHLORIDE LEVEL 103 MMOL/L (98-107); CREATININE FOR GFR 0.86 MG/DL (0.70-1.30); GLOMERULAR FILTRATION RATE > 60.0 (>42); GLUCOSE, FASTING 198 MG/DL (74-106); POTASSIUM SERUM 4.3 MMOL/L (3.5-5.1); SODIUM LEVEL 137 MMOL/L (136-145)
[2023-07-13] MEDS: MIRALAX *UNIT DOSE* 17GM PACKET PO SCH ×2 (08:46→22:09)
[2023-07-13] MEDS: METAMUCIL (PSYLLIUM) PACKET PO SCH ×2 (08:46→22:09)
[2023-07-13] MEDS: ASPIRIN 325 MG TAB PO SCH (08:47)
[2023-07-13] MEDS: NYSTATIN 500,000U/5ML SUSP UDC SS SCH ×3 (08:47→22:12)
[2023-07-13] MEDS: GABAPENTIN 100 MG CAP PO SCH ×2 (08:47→22:08)
[2023-07-13] MEDS: ATORVASTATIN 20 MG TAB PO SCH (08:47)
[2023-07-13] MEDS: ACETAMINOPHEN 500 MG TAB PO SCH ×2 (08:47→22:09)
[2023-07-13] MEDS: PANTOPRAZOLE 40MG TAB (PROTONIX) PO SCH (08:47)
[2023-07-13] MEDS: BENZONATATE 100MG CAPSULE PO SCH ×3 (08:47→22:11)
[2023-07-13] MEDS: INSULIN LISPRO (NovoLOG) PER UNIT SC SCH ×4 (08:48→22:12)
[2023-07-13] MEDS: DOCUSATE SODIUM 100MG CAPSULE PO SCH ×2 (08:48→22:11)
[2023-07-13] MEDS: VENLAFAXINE 37.5 MG TAB PO SCH (08:50)
[2023-07-13] MEDS: METOPROLOL TART 50 MG TAB PO SCH ×2 (09:53→22:11)
[2023-07-13] MEDS ORDERED: VENL37.598 PO (14:54)
[2023-07-13] MEDS ORDERED: VENL150C43 PO (14:54)
[2023-07-13 17:01] LABS: IRON (FE) 7 UG/DL (65-175); PERCENT SATURATION 5.7 % (19.7-50.0); TOTAL IRON BINDING CAPACITY 123 UG/DL (250-425)
[2023-07-13 17:03] LABS: FERRITIN 446.9 NG/ML (10.5-307.3); FOLATE 4.7 NG/ML (>5.4); VITAMIN B12 LEVEL 1302 PG/ML (211-911)
[2023-07-13] MEDS: BISACODYL 10MG SUPP PR SCH (17:44)
[2023-07-13] MEDS ORDERED: FERRIC CARBOXYMALTOSE INJ 750 MG, VIAL MATE ADAPTER 1 EACH in NS 250 ML IV ONE (18:35)
[2023-07-13] MEDS: FOLIC ACID 1 MG in NS 50 ML IV SCH (22:08)
[2023-07-13] MEDS: QUEtiapine FUMARATE 12.5 MG HALF-TAB PO SCH (22:09)
[2023-07-13] MEDS: SENNA 8.6 MG TAB (SENOKOT) PO SCH (22:10)
[2023-07-13] MEDS: LEVEMIR (INSULIN DETEMIR) 1 UNITS/0.01ML SC SCH (22:13)
[2023-07-14] MEDS: CEFTAZIDIME IV SCH ×3 (02:58→18:00)
[2023-07-14] MEDS: AVIBACTAM IV SCH ×3 (02:58→18:00)
[2023-07-14] MEDS: D5W MINI IV SCH ×3 (02:58→18:00)
[2023-07-14 05:34] VITALS: BP 120/80; TEMP 97.9; O2SAT 95
[2023-07-14] MEDS: HEPARIN SOD (PORCINE) 5000UNITS/ML 1ML VIAL/SYRINGE SQ SCH ×3 (06:02→21:24)
[2023-07-14 07:29] LABS: BASO % 0.2 % (0.0-1.0); EOS # 0.1 10^3/uL (0.0-0.5); HEMATOCRIT 30.8 % (42.0-52.0); HEMOGLOBIN 9.6 g/dl (13.5-17.5); LYMPH # 1.3 10^3/uL (1.5-5.0); LYMPH % 13.8 % (24.0-44.0); MEAN CORPUSCULAR HEMOGLOBIN 27.4 pg (27.0-33.0); MEAN CORPUSCULAR HGB CONC 31.2 g/dl (32.0-36.5); MONO # 0.9 10^3/uL (0.0-0.8); MONO % 9.6 % (2.0-8.0); NEUTROPHILS # 6.8 10^3/uL (1.5-8.5); NEUTROPHILS % 74.4 % (36.0-66.0); PLATELET COUNT, AUTOMATED 331 10^3/uL (150-450); WHITE BLOOD COUNT 9.2 10^3/uL (4.0-10.0)
[2023-07-14] MEDS: INSULIN LISPRO (NovoLOG) PER UNIT SC SCH ×4 (07:30→21:00)
[2023-07-14 08:00] VITALS: BP 129/81; TEMP 98.1; O2SAT 95
[2023-07-14 08:06] LABS: BLOOD UREA NITROGEN 15 MG/DL (9-23); CALCIUM LEVEL 7.7 MG/DL (8.3-10.6); CARBON DIOXIDE LEVEL 28 MMOL/L (20-31); CHLORIDE LEVEL 101 MMOL/L (98-107); CREATININE FOR GFR 0.82 MG/DL (0.70-1.30); GLOMERULAR FILTRATION RATE > 60.0 (>42); GLUCOSE, FASTING 128 MG/DL (74-106); POTASSIUM SERUM 4.3 MMOL/L (3.5-5.1); SODIUM LEVEL 135 MMOL/L (136-145)
[2023-07-14 08:12] LABS: ERYTHROCYTE SEDIMENTATION RATE 125 mm/hr (0-20)
[2023-07-14] MEDS: MIRALAX *UNIT DOSE* 17GM PACKET PO SCH ×3 (09:00→21:24)
[2023-07-14] MEDS: METAMUCIL (PSYLLIUM) PACKET PO SCH ×2 (09:00→21:24)
[2023-07-14] MEDS: NYSTATIN 500,000U/5ML SUSP UDC SS SCH ×3 (09:33→21:26)
[2023-07-14] MEDS: PANTOPRAZOLE 40MG TAB (PROTONIX) PO SCH (09:35)
[2023-07-14] MEDS: ACETAMINOPHEN 500 MG TAB PO SCH ×2 (09:35→21:26)
[2023-07-14] MEDS: VENLAFAXINE **XR** 75MG CAPSULE PO SCH (09:36)
[2023-07-14] MEDS: METOPROLOL TART 50 MG TAB PO SCH ×2 (09:37→21:26)
[2023-07-14] MEDS: ASPIRIN 325 MG TAB PO SCH (09:37)
[2023-07-14] MEDS: DOCUSATE SODIUM 100MG CAPSULE PO SCH ×2 (09:37→21:25)
[2023-07-14] MEDS: BENZONATATE 100MG CAPSULE PO SCH ×3 (09:37→21:25)
[2023-07-14] MEDS: GABAPENTIN 100 MG CAP PO SCH ×2 (09:37→21:25)
[2023-07-14] MEDS: ATORVASTATIN 20 MG TAB PO SCH (09:37)
[2023-07-14 12:00] VITALS: BP 121/73; TEMP 98; O2SAT 95
[2023-07-14 14:00] VITALS: BP 121/71; TEMP 98.7; O2SAT 90
[2023-07-14] MEDS: BISACODYL 10MG SUPP PR SCH (17:04)
[2023-07-14] MEDS: FOLIC ACID 1 MG in NS 50 ML IV SCH (20:27)
[2023-07-14 20:31] VITALS: BP 120/68; TEMP 98.2; O2SAT 97
[2023-07-14] MEDS: LEVEMIR (INSULIN DETEMIR) 1 UNITS/0.01ML SC SCH (21:24)
[2023-07-14] MEDS: QUEtiapine FUMARATE 12.5 MG HALF-TAB PO SCH (21:25)
[2023-07-14] MEDS: SENNA 8.6 MG TAB (SENOKOT) PO SCH (21:25)
[2023-07-15] MEDS: D5W MINI IV SCH ×3 (03:13→17:26)
[2023-07-15] MEDS: CEFTAZIDIME IV SCH ×3 (03:13→17:26)
[2023-07-15] MEDS: AVIBACTAM IV SCH ×3 (03:13→17:26)
[2023-07-15] MEDS: HEPARIN SOD (PORCINE) 5000UNITS/ML 1ML VIAL/SYRINGE SQ SCH ×3 (05:36→21:41)
[2023-07-15 05:43] VITALS: BP 139/82; TEMP 98.2; O2SAT 97
[2023-07-15 06:11] LABS: BASO % 0.2 % (0.0-1.0); EOS # 0.1 10^3/uL (0.0-0.5); EOS % 1.3 % (0.0-3.0); HEMATOCRIT 30.8 % (42.0-52.0); HEMOGLOBIN 9.8 g/dl (13.5-17.5); LYMPH # 1.2 10^3/uL (1.5-5.0); LYMPH % 13.6 % (24.0-44.0); MEAN CORPUSCULAR HEMOGLOBIN 27.7 pg (27.0-33.0); MEAN CORPUSCULAR HGB CONC 31.8 g/dl (32.0-36.5); MONO % 11.4 % (2.0-8.0); NEUTROPHILS # 6.5 10^3/uL (1.5-8.5); NEUTROPHILS % 72.9 % (36.0-66.0); PLATELET COUNT, AUTOMATED 362 10^3/uL (150-450); RED BLOOD COUNT 3.54 10^6/uL (4.30-6.10)
[2023-07-15 06:29] LABS: BLOOD UREA NITROGEN 15 MG/DL (9-23); CALCIUM LEVEL 7.8 MG/DL (8.3-10.6); CARBON DIOXIDE LEVEL 29 MMOL/L (20-31); CHLORIDE LEVEL 102 MMOL/L (98-107); CREATININE FOR GFR 0.79 MG/DL (0.70-1.30); GLOMERULAR FILTRATION RATE > 60.0 (>42); GLUCOSE, FASTING 176 MG/DL (74-106); POTASSIUM SERUM 4.4 MMOL/L (3.5-5.1); SODIUM LEVEL 135 MMOL/L (136-145)
[2023-07-15] MEDS: ACETAMINOPHEN 500 MG TAB PO SCH ×2 (09:06→21:28)
[2023-07-15] MEDS: BENZONATATE 100MG CAPSULE PO SCH ×3 (09:06→21:26)
[2023-07-15] MEDS: PANTOPRAZOLE 40MG TAB (PROTONIX) PO SCH (09:06)
[2023-07-15] MEDS: ATORVASTATIN 20 MG TAB PO SCH (09:06)
[2023-07-15] MEDS: NYSTATIN 500,000U/5ML SUSP UDC SS SCH ×3 (09:06→21:27)
[2023-07-15] MEDS: DOCUSATE SODIUM 100MG CAPSULE PO SCH ×2 (09:06→21:28)
[2023-07-15] MEDS: METAMUCIL (PSYLLIUM) PACKET PO SCH ×2 (09:07→21:32)
[2023-07-15] MEDS: METOPROLOL TART 50 MG TAB PO SCH ×2 (09:07→21:27)
[2023-07-15] MEDS: GABAPENTIN 100 MG CAP PO SCH ×2 (09:07→21:27)
[2023-07-15] MEDS: VENLAFAXINE **XR** 75MG CAPSULE PO SCH (09:07)
[2023-07-15] MEDS: ASPIRIN 325 MG TAB PO SCH (09:07)
[2023-07-15] MEDS: MIRALAX *UNIT DOSE* 17GM PACKET PO SCH ×2 (09:07→21:32)
[2023-07-15] MEDS: INSULIN LISPRO (NovoLOG) PER UNIT SC SCH ×4 (09:08→21:00)
[2023-07-15] MEDS: DEXTROSE 50% 50ML SYRINGE IV PRN (13:26)
[2023-07-15 14:00] VITALS: BP 108/63; TEMP 97.9; O2SAT 94
[2023-07-15] MEDS: BISACODYL 10MG SUPP PR SCH (17:26)
[2023-07-15] MEDS: FOLIC ACID 1 MG in NS 50 ML IV SCH (20:02)
[2023-07-15 21:08] VITALS: BP 130/73; TEMP 97.9; O2SAT 95
[2023-07-15] MEDS: LEVEMIR (INSULIN DETEMIR) 1 UNITS/0.01ML SC SCH (21:26)
[2023-07-15] MEDS: QUEtiapine FUMARATE 12.5 MG HALF-TAB PO SCH (21:32)
[2023-07-15] MEDS: SENNA 8.6 MG TAB (SENOKOT) PO SCH (21:32)
[2023-07-16] MEDS: D5W MINI IV SCH ×3 (02:58→18:18)
[2023-07-16] MEDS: AVIBACTAM IV SCH ×3 (02:58→18:18)
[2023-07-16] MEDS: CEFTAZIDIME IV SCH ×3 (02:58→18:18)
[2023-07-16 05:14] VITALS: BP 130/69; TEMP 98.1; O2SAT 93
[2023-07-16] MEDS: HEPARIN SOD (PORCINE) 5000UNITS/ML 1ML VIAL/SYRINGE SQ SCH ×3 (05:45→20:34)
[2023-07-16 06:57] LABS: BASO % 0.3 % (0.0-1.0); EOS # 0.1 10^3/uL (0.0-0.5); EOS % 1.2 % (0.0-3.0); LYMPH # 1.5 10^3/uL (1.5-5.0); LYMPH % 15.7 % (24.0-44.0); MEAN CORPUSCULAR HEMOGLOBIN 27.8 pg (27.0-33.0); MEAN CORPUSCULAR HGB CONC 32.3 g/dl (32.0-36.5); MEAN CORPUSCULAR VOLUME 86.1 fl (80.0-96.0); MONO # 1.3 10^3/uL (0.0-0.8); NEUTROPHILS # 6.7 10^3/uL (1.5-8.5); PLATELET COUNT, AUTOMATED 373 10^3/uL (150-450); WHITE BLOOD COUNT 9.8 10^3/uL (4.0-10.0)
[2023-07-16] MEDS: INSULIN LISPRO (NovoLOG) PER UNIT SC SCH ×4 (07:30→20:35)
[2023-07-16] MEDS: DEXTROSE 50% 50ML SYRINGE IV PRN (07:36)
[2023-07-16 07:39] VITALS: BP 144/80; TEMP 98.1
[2023-07-16 07:47] LABS: BLOOD UREA NITROGEN 17 MG/DL (9-23); CARBON DIOXIDE LEVEL 28 MMOL/L (20-31); CHLORIDE LEVEL 103 MMOL/L (98-107); CREATININE FOR GFR 0.79 MG/DL (0.70-1.30); GLOMERULAR FILTRATION RATE > 60.0 (>42); GLUCOSE, FASTING 57 MG/DL (74-106); POTASSIUM SERUM 3.9 MMOL/L (3.5-5.1); SODIUM LEVEL 138 MMOL/L (136-145)
[2023-07-16 08:19] LABS: ERYTHROCYTE SEDIMENTATION RATE > 130 mm/hr (0-20)
[2023-07-16] MEDS: VENLAFAXINE **XR** 75MG CAPSULE PO SCH (08:32)
[2023-07-16] MEDS: NYSTATIN 500,000U/5ML SUSP UDC SS SCH ×3 (08:32→20:28)
[2023-07-16] MEDS: DOCUSATE SODIUM 100MG CAPSULE PO SCH ×2 (08:33→20:29)
[2023-07-16] MEDS: METOPROLOL TART 50 MG TAB PO SCH ×2 (08:33→20:30)
[2023-07-16] MEDS: BENZONATATE 100MG CAPSULE PO SCH (08:34)
[2023-07-16] MEDS: ATORVASTATIN 20 MG TAB PO SCH (08:35)
[2023-07-16] MEDS: ACETAMINOPHEN 500 MG TAB PO SCH ×2 (08:35→20:29)
[2023-07-16] MEDS: ASPIRIN 325 MG TAB PO SCH (08:35)
[2023-07-16] MEDS: PANTOPRAZOLE 40MG TAB (PROTONIX) PO SCH (08:35)
[2023-07-16] MEDS: GABAPENTIN 100 MG CAP PO SCH ×2 (08:35→20:31)
[2023-07-16] MEDS: MIRALAX *UNIT DOSE* 17GM PACKET PO SCH ×2 (08:36→20:35)
[2023-07-16] MEDS: METAMUCIL (PSYLLIUM) PACKET PO SCH ×2 (08:36→20:35)
[2023-07-16 09:30] VITALS: BP 120/74; TEMP 97.9; O2SAT 96
[2023-07-16 14:30] VITALS: BP 118/72; TEMP 97.7; O2SAT 93
[2023-07-16] MEDS ORDERED: BENZONATATE 100MG CAPSULE PO PRN (17:25)
[2023-07-16] MEDS: BISACODYL 10MG SUPP PR SCH (18:00)
[2023-07-16] MEDS: SENNA 8.6 MG TAB (SENOKOT) PO SCH (20:31)
[2023-07-16] MEDS: QUEtiapine FUMARATE 12.5 MG HALF-TAB PO SCH (20:31)
[2023-07-16] MEDS: FOLIC ACID 1 MG in NS 50 ML IV SCH (20:32)
[2023-07-16] MEDS: LEVEMIR (INSULIN DETEMIR) 1 UNITS/0.01ML SC SCH (20:35)
[2023-07-16 20:42] VITALS: BP 130/74; TEMP 97.7; O2SAT 94
[2023-07-17] MEDS: D5W MINI IV SCH ×3 (02:56→18:28)
[2023-07-17] MEDS: AVIBACTAM IV SCH ×3 (02:56→18:28)
[2023-07-17] MEDS: CEFTAZIDIME IV SCH ×3 (02:56→18:28)
[2023-07-17] MEDS: HEPARIN SOD (PORCINE) 5000UNITS/ML 1ML VIAL/SYRINGE SQ SCH ×3 (04:29→20:23)
[2023-07-17 05:41] VITALS: BP 130/75; TEMP 97.7; O2SAT 93
[2023-07-17 06:16] LABS: BASO % 0.4 % (0.0-1.0); EOS # 0.2 10^3/uL (0.0-0.5); EOS % 3.1 % (0.0-3.0); HEMATOCRIT 31.1 % (42.0-52.0); HEMOGLOBIN 9.8 g/dl (13.5-17.5); LYMPH # 1.3 10^3/uL (1.5-5.0); LYMPH % 16.8 % (24.0-44.0); MEAN CORPUSCULAR HEMOGLOBIN 27.2 pg (27.0-33.0); MEAN CORPUSCULAR HGB CONC 31.5 g/dl (32.0-36.5); MEAN CORPUSCULAR VOLUME 86.4 fl (80.0-96.0); MONO # 0.8 10^3/uL (0.0-0.8); MONO % 10.9 % (2.0-8.0); NEUTROPHILS # 5.2 10^3/uL (1.5-8.5); NEUTROPHILS % 67.6 % (36.0-66.0); PLATELET COUNT, AUTOMATED 400 10^3/uL (150-450); WHITE BLOOD COUNT 7.7 10^3/uL (4.0-10.0)
[2023-07-17 06:45] LABS: BLOOD UREA NITROGEN 17 MG/DL (9-23); CALCIUM LEVEL 8.3 MG/DL (8.3-10.6); CARBON DIOXIDE LEVEL 28 MMOL/L (20-31); CHLORIDE LEVEL 103 MMOL/L (98-107); CREATININE FOR GFR 0.85 MG/DL (0.70-1.30); GLOMERULAR FILTRATION RATE > 60.0 (>42); GLUCOSE, FASTING 155 MG/DL (74-106); POTASSIUM SERUM 4.4 MMOL/L (3.5-5.1); SODIUM LEVEL 137 MMOL/L (136-145)
[2023-07-17] MEDS: PANTOPRAZOLE 40MG TAB (PROTONIX) PO SCH (08:49)
[2023-07-17] MEDS: METOPROLOL TART 50 MG TAB PO SCH ×2 (08:49→20:22)
[2023-07-17] MEDS: VENLAFAXINE **XR** 75MG CAPSULE PO SCH (08:50)
[2023-07-17] MEDS: ASPIRIN 325 MG TAB PO SCH (08:50)
[2023-07-17] MEDS: ACETAMINOPHEN 500 MG TAB PO SCH ×2 (08:50→20:17)
[2023-07-17] MEDS: GABAPENTIN 100 MG CAP PO SCH ×2 (08:50→20:17)
[2023-07-17] MEDS: ATORVASTATIN 20 MG TAB PO SCH (08:50)
[2023-07-17] MEDS: DOCUSATE SODIUM 100MG CAPSULE PO SCH ×2 (08:50→20:05)
[2023-07-17] MEDS: METAMUCIL (PSYLLIUM) PACKET PO SCH ×3 (08:51→20:05)
[2023-07-17] MEDS: NYSTATIN 500,000U/5ML SUSP UDC SS SCH ×4 (08:51→20:22)
[2023-07-17] MEDS: MIRALAX *UNIT DOSE* 17GM PACKET PO SCH ×3 (08:51→20:05)
[2023-07-17] MEDS: INSULIN LISPRO (NovoLOG) PER UNIT SC SCH ×4 (08:51→19:34)
[2023-07-17 14:00] VITALS: BP 130/79; TEMP 97.5; O2SAT 85
[2023-07-17] MEDS: BISACODYL 10MG SUPP PR SCH (18:00)
[2023-07-17] MEDS: SENNA 8.6 MG TAB (SENOKOT) PO SCH (20:05)
[2023-07-17] MEDS: LEVEMIR (INSULIN DETEMIR) 1 UNITS/0.01ML SC SCH (20:17)
[2023-07-17] MEDS: QUEtiapine FUMARATE 12.5 MG HALF-TAB PO SCH (20:17)
[2023-07-17] MEDS: FOLIC ACID 1 MG in NS 50 ML IV SCH (20:24)
[2023-07-17 20:32] VITALS: O2SAT 94
[2023-07-17 22:00] VITALS: BP 129/84; TEMP 98.6
[2023-07-18] MEDS: CEFTAZIDIME IV SCH ×3 (02:27→18:38)
[2023-07-18] MEDS: AVIBACTAM IV SCH ×3 (02:27→18:38)
[2023-07-18] MEDS: D5W MINI IV SCH ×3 (02:27→18:38)
[2023-07-18] MEDS: HEPARIN SOD (PORCINE) 5000UNITS/ML 1ML VIAL/SYRINGE SQ SCH ×3 (05:10→20:12)
[2023-07-18 06:06] VITALS: BP 123/77; TEMP 97.7; O2SAT 94
[2023-07-18 06:40] LABS: HEMATOCRIT 30.5 % (42.0-52.0); HEMOGLOBIN 9.6 g/dl (13.5-17.5); MEAN CORPUSCULAR HEMOGLOBIN 27.7 pg (27.0-33.0); MEAN CORPUSCULAR HGB CONC 31.5 g/dl (32.0-36.5); MEAN CORPUSCULAR VOLUME 87.9 fl (80.0-96.0); PLATELET COUNT, AUTOMATED 464 10^3/uL (150-450); RED BLOOD COUNT 3.47 10^6/uL (4.30-6.10); WHITE BLOOD COUNT 8.2 10^3/uL (4.0-10.0)
[2023-07-18 06:50] LABS: ERYTHROCYTE SEDIMENTATION RATE 61 mm/hr (0-20)
[2023-07-18 07:00] LABS: BLOOD UREA NITROGEN 18 MG/DL (9-23); CALCIUM LEVEL 7.9 MG/DL (8.3-10.6); CARBON DIOXIDE LEVEL 26 MMOL/L (20-31); CHLORIDE LEVEL 102 MMOL/L (98-107); CREATININE FOR GFR 0.79 MG/DL (0.70-1.30); GLOMERULAR FILTRATION RATE > 60.0 (>42); GLUCOSE, FASTING 199 MG/DL (74-106); POTASSIUM SERUM 4.5 MMOL/L (3.5-5.1); SODIUM LEVEL 136 MMOL/L (136-145)
[2023-07-18] MEDS: ACETAMINOPHEN 500 MG TAB PO SCH ×2 (08:18→20:10)
[2023-07-18] MEDS: VENLAFAXINE **XR** 75MG CAPSULE PO SCH (08:18)
[2023-07-18] MEDS: INSULIN LISPRO (NovoLOG) PER UNIT SC SCH ×4 (08:18→20:02)
[2023-07-18] MEDS: PANTOPRAZOLE 40MG TAB (PROTONIX) PO SCH (08:19)
[2023-07-18] MEDS: METOPROLOL TART 50 MG TAB PO SCH ×2 (08:19→20:10)
[2023-07-18] MEDS: METAMUCIL (PSYLLIUM) PACKET PO SCH ×2 (08:19→20:02)
[2023-07-18] MEDS: ATORVASTATIN 20 MG TAB PO SCH (08:19)
[2023-07-18] MEDS: MIRALAX *UNIT DOSE* 17GM PACKET PO SCH ×2 (08:19→20:02)
[2023-07-18] MEDS: ASPIRIN 325 MG TAB PO SCH (08:19)
[2023-07-18] MEDS: GABAPENTIN 100 MG CAP PO SCH ×2 (08:19→20:10)
[2023-07-18] MEDS: DOCUSATE SODIUM 100MG CAPSULE PO SCH ×2 (08:20→20:02)
[2023-07-18] MEDS: FOLIC ACID 1MG TAB PO SCH (11:40)
[2023-07-18 14:00] VITALS: BP_SYST 122; BP_SYST 124; BP_DIAS 76; TEMP 97.2; TEMP 97.7; O2SAT 93; O2SAT 97
[2023-07-18] MEDS: BISACODYL 10MG SUPP PR SCH (18:00)
[2023-07-18 19:35] VITALS: BP 125/77; TEMP 98.2; O2SAT 94
[2023-07-18] MEDS: SENNA 8.6 MG TAB (SENOKOT) PO SCH (20:02)
[2023-07-18] MEDS: LEVEMIR (INSULIN DETEMIR) 1 UNITS/0.01ML SC SCH (20:09)
[2023-07-18] MEDS: QUEtiapine FUMARATE 12.5 MG HALF-TAB PO SCH (20:09)
[2023-07-19] MEDS: HEPARIN SOD (PORCINE) 5000UNITS/ML 1ML VIAL/SYRINGE SQ SCH ×4 (05:13→20:59)
[2023-07-19 06:00] VITALS: BP 132/64; TEMP 97.5; O2SAT 96
[2023-07-19] MEDS: INSULIN LISPRO (NovoLOG) PER UNIT SC SCH ×4 (08:43→20:50)
[2023-07-19] MEDS: FOLIC ACID 1MG TAB PO SCH (08:44)
[2023-07-19] MEDS: GABAPENTIN 100 MG CAP PO SCH ×2 (08:44→20:49)
[2023-07-19] MEDS: METHENAMINE HIPPURATE 1GM TABLET PO SCH ×2 (08:44→21:07)
[2023-07-19] MEDS: ACETAMINOPHEN 500 MG TAB PO SCH ×2 (08:44→20:49)
[2023-07-19] MEDS: ATORVASTATIN 20 MG TAB PO SCH (08:45)
[2023-07-19] MEDS: DOCUSATE SODIUM 100MG CAPSULE PO SCH ×2 (08:45→20:48)
[2023-07-19] MEDS: METOPROLOL TART 50 MG TAB PO SCH ×2 (08:45→20:53)
[2023-07-19] MEDS: ASPIRIN 325 MG TAB PO SCH (08:45)
[2023-07-19] MEDS: MIRALAX *UNIT DOSE* 17GM PACKET PO SCH ×2 (08:46→20:54)
[2023-07-19] MEDS: METAMUCIL (PSYLLIUM) PACKET PO SCH ×2 (08:46→20:54)
[2023-07-19] MEDS: VENLAFAXINE **XR** 75MG CAPSULE PO SCH (08:47)
[2023-07-19] MEDS: PANTOPRAZOLE 40MG TAB (PROTONIX) PO SCH (08:47)
[2023-07-19 14:00] VITALS: BP 125/73; TEMP 97.2; O2SAT 96
[2023-07-19] MEDS: BISACODYL 10MG SUPP PR SCH (17:37)
[2023-07-19 20:00] VITALS: BP 124/73; TEMP 97.9; O2SAT 94
[2023-07-19] MEDS: SENNA 8.6 MG TAB (SENOKOT) PO SCH (20:48)
[2023-07-19] MEDS: QUEtiapine FUMARATE 12.5 MG HALF-TAB PO SCH (20:49)
[2023-07-19] MEDS: LEVEMIR (INSULIN DETEMIR) 1 UNITS/0.01ML SC SCH (20:49)
[2023-07-20] MEDS: HEPARIN SOD (PORCINE) 5000UNITS/ML 1ML VIAL/SYRINGE SQ SCH ×3 (05:34→21:21)
[2023-07-20 06:00] VITALS: BP 126/74; TEMP 98.2; O2SAT 93
[2023-07-20 06:10] LABS: BASO # 0.1 10^3/uL (0.0-0.2); BASO % 0.5 % (0.0-1.0); EOS # 0.5 10^3/uL (0.0-0.5); EOS % 4.8 % (0.0-3.0); HEMATOCRIT 32.6 % (42.0-52.0); LYMPH # 2.1 10^3/uL (1.5-5.0); LYMPH % 20.3 % (24.0-44.0); MEAN CORPUSCULAR HGB CONC 30.7 g/dl (32.0-36.5); MEAN CORPUSCULAR VOLUME 88.1 fl (80.0-96.0); MONO # 1.4 10^3/uL (0.0-0.8); PLATELET COUNT, AUTOMATED 634 10^3/uL (150-450); WHITE BLOOD COUNT 10.1 10^3/uL (4.0-10.0)
[2023-07-20 06:40] LABS: BLOOD UREA NITROGEN 18 MG/DL (9-23); CARBON DIOXIDE LEVEL 27 MMOL/L (20-31); CHLORIDE LEVEL 106 MMOL/L (98-107); CREATININE FOR GFR 0.78 MG/DL (0.70-1.30); GLOMERULAR FILTRATION RATE > 60.0 (>42); GLUCOSE, FASTING 106 MG/DL (74-106); POTASSIUM SERUM 4.7 MMOL/L (3.5-5.1); SODIUM LEVEL 137 MMOL/L (136-145)
[2023-07-20] MEDS: INSULIN LISPRO (NovoLOG) PER UNIT SC SCH ×4 (07:30→20:11)
[2023-07-20 08:06] LABS: ERYTHROCYTE SEDIMENTATION RATE 73 mm/hr (0-20)
[2023-07-20 08:25] VITALS: BP 126/73
[2023-07-20] MEDS: MIRALAX *UNIT DOSE* 17GM PACKET PO SCH ×2 (08:26→20:19)
[2023-07-20] MEDS: DOCUSATE SODIUM 100MG CAPSULE PO SCH ×2 (08:26→20:19)
[2023-07-20] MEDS: ATORVASTATIN 20 MG TAB PO SCH (08:32)
[2023-07-20] MEDS: PANTOPRAZOLE 40MG TAB (PROTONIX) PO SCH (08:32)
[2023-07-20] MEDS: ACETAMINOPHEN 500 MG TAB PO SCH ×2 (08:33→20:19)
[2023-07-20] MEDS: ASPIRIN 325 MG TAB PO SCH (08:33)
[2023-07-20] MEDS: GABAPENTIN 100 MG CAP PO SCH ×2 (08:33→20:19)
[2023-07-20] MEDS: VENLAFAXINE **XR** 75MG CAPSULE PO SCH (08:33)
[2023-07-20] MEDS: METOPROLOL TART 50 MG TAB PO SCH ×2 (08:33→20:20)
[2023-07-20] MEDS: METHENAMINE HIPPURATE 1GM TABLET PO SCH ×2 (08:34→20:28)
[2023-07-20] MEDS: FOLIC ACID 1MG TAB PO SCH (08:34)
[2023-07-20] MEDS: METAMUCIL (PSYLLIUM) PACKET PO SCH ×2 (08:34→20:19)
[2023-07-20 14:00] VITALS: BP 118/71; TEMP 97.9; O2SAT 96
[2023-07-20] MEDS: BISACODYL 10MG SUPP PR SCH (17:05)
[2023-07-20 20:00] VITALS: BP 144/83; TEMP 97.9; O2SAT 93
[2023-07-20] MEDS: SENNA 8.6 MG TAB (SENOKOT) PO SCH (20:19)
[2023-07-20] MEDS: QUEtiapine FUMARATE 12.5 MG HALF-TAB PO SCH (20:19)
[2023-07-20] MEDS: LEVEMIR (INSULIN DETEMIR) 1 UNITS/0.01ML SC SCH (20:20)
[2023-07-21] MEDS: HEPARIN SOD (PORCINE) 5000UNITS/ML 1ML VIAL/SYRINGE SQ SCH ×2 (05:26→13:29)
[2023-07-21 06:00] VITALS: BP 157/84; TEMP 98.1; O2SAT 90
[2023-07-21 06:20] LABS: BASO # 0.1 10^3/uL (0.0-0.2); BASO % 0.5 % (0.0-1.0); EOS # 0.5 10^3/uL (0.0-0.5); EOS % 4.7 % (0.0-3.0); HEMATOCRIT 33.2 % (42.0-52.0); HEMOGLOBIN 10.3 g/dl (13.5-17.5); LYMPH # 1.9 10^3/uL (1.5-5.0); LYMPH % 17.9 % (24.0-44.0); MEAN CORPUSCULAR HEMOGLOBIN 27.4 pg (27.0-33.0); MEAN CORPUSCULAR VOLUME 88.3 fl (80.0-96.0); MONO # 1.4 10^3/uL (0.0-0.8); MONO % 12.6 % (2.0-8.0); NEUTROPHILS # 6.8 10^3/uL (1.5-8.5); NEUTROPHILS % 62.6 % (36.0-66.0); RED BLOOD COUNT 3.76 10^6/uL (4.30-6.10); WHITE BLOOD COUNT 10.9 10^3/uL (4.0-10.0)
[2023-07-21 06:24] LABS: PLATELET COUNT, AUTOMATED 785 10^3/uL (150-450)
[2023-07-21 06:43] LABS: BLOOD UREA NITROGEN 18 MG/DL (9-23); CALCIUM LEVEL 8.6 MG/DL (8.3-10.6); CARBON DIOXIDE LEVEL 28 MMOL/L (20-31); CHLORIDE LEVEL 104 MMOL/L (98-107); CREATININE FOR GFR 0.77 MG/DL (0.70-1.30); GLOMERULAR FILTRATION RATE > 60.0 (>42); GLUCOSE, FASTING 164 MG/DL (74-106); POTASSIUM SERUM 4.8 MMOL/L (3.5-5.1); SODIUM LEVEL 137 MMOL/L (136-145)
[2023-07-21] MEDS: INSULIN LISPRO (NovoLOG) PER UNIT SC SCH ×2 (07:40→11:43)
[2023-07-21 07:42] VITALS: BP 139/84; TEMP 98.1; O2SAT 100
[2023-07-21] MEDS: DOCUSATE SODIUM 100MG CAPSULE PO SCH (08:59)
[2023-07-21] MEDS: METAMUCIL (PSYLLIUM) PACKET PO SCH (09:00)
[2023-07-21] MEDS: MIRALAX *UNIT DOSE* 17GM PACKET PO SCH (09:00)
[2023-07-21] MEDS: METHENAMINE HIPPURATE 1GM TABLET PO SCH (09:17)
[2023-07-21] MEDS: ATORVASTATIN 20 MG TAB PO SCH (09:17)
[2023-07-21] MEDS: ASPIRIN 325 MG TAB PO SCH (09:17)
[2023-07-21] MEDS: GABAPENTIN 100 MG CAP PO SCH (09:17)
[2023-07-21] MEDS: FOLIC ACID 1MG TAB PO SCH (09:17)
[2023-07-21] MEDS: VENLAFAXINE **XR** 75MG CAPSULE PO SCH (09:17)
[2023-07-21 09:18] VITALS: BP 139/84
[2023-07-21] MEDS: ACETAMINOPHEN 500 MG TAB PO SCH (09:18)
[2023-07-21] MEDS: PANTOPRAZOLE 40MG TAB (PROTONIX) PO SCH (09:18)
[2023-07-21] MEDS: METOPROLOL TART 50 MG TAB PO SCH (09:18)
[2023-07-21] MEDS ORDERED: ATOR40TA75 PO (10:24)
[2023-07-21] MEDS ORDERED: ASPI-1 PO (10:24)
[2023-07-21] MEDS ORDERED: JANU25TA PO (10:24)
[2023-07-21] MEDS ORDERED: ACET-683 PO (10:24)
[2023-07-21] MEDS ORDERED: LOPR1TAB6 PO (10:24)
[2023-07-21] MEDS ORDERED: BISA10SU PR (10:24)
[2023-07-21] MEDS ORDERED: LANTINJ4 SC (10:24)
[2023-07-21] MEDS ORDERED: METH-855 PO (10:24)
[2023-07-21] MEDS ORDERED: GABA-1171 PO (10:24)
[2023-07-21] MEDS ORDERED: QUET1TAB17 PO (10:24)
[2023-07-21] MEDS ORDERED: FOLI1TAB11 PO (10:24)
[2023-07-21] MEDS ORDERED: BENZ1LOZ2 PO (10:24)
[2023-07-21] MEDS ORDERED: SENN1TAB94 PO (10:24)
[2023-07-21 14:00] VITALS: BP 129/81; TEMP 97.9; O2SAT 97
== END 2023-07-21 14:11 | disposition home health service (06) | DRG 64 ==
LOC: INTOOBSV 15:15 → M MSPAV 15:15 → EEVIPCON 07-13 16:35 → OBSVTOIN 07-13 16:35
PROVIDERS: ADMIT Student in an Organized Health Care Education/Training Program; ATTEND Internal Medicine Nephrology
DX: I63.9 Cerebral infarction, unspecified (principal); G93.41 Metabolic encephalopathy; G82.20 Paraplegia, unspecified; G95.9 Disease of spinal cord, unspecified; K59.2 Neurogenic bowel, not elsewhere classified; B37.0 Candidal stomatitis; N13.0 Hydronephrosis with ureteropelvic junction obstruction; Q62.39 Other obstructive defects of renal pelvis and ureter; T83.511A Infection and inflammatory reaction due to indwelling urethral catheter, initial encounter; E11.22 Type 2 diabetes mellitus with diabetic chronic kidney disease; F03.90 Unspecified dementia, unspecified severity, without behavioral disturbance, psychotic disturbance, mood disturbance, and anxiety; I12.9 Hypertensive chronic kidney disease with stage 1 through stage 4 chronic kidney disease, or unspecified chronic kidney disease; L89.152 Pressure ulcer of sacral region, stage 2; K21.9 Gastro-esophageal reflux disease without esophagitis; E78.5 Hyperlipidemia, unspecified; J02.9 Acute pharyngitis, unspecified; R13.10 Dysphagia, unspecified; K59.00 Constipation, unspecified; K44.9 Diaphragmatic hernia without obstruction or gangrene; N31.9 Neuromuscular dysfunction of bladder, unspecified; E11.649 Type 2 diabetes mellitus with hypoglycemia without coma; Z79.4 Long term (current) use of insulin; N18.30 Chronic kidney disease, stage 3 unspecified; F32.A Depression, unspecified; I95.1 Orthostatic hypotension; Z79.899 Other long term (current) drug therapy; Z79.82 Long term (current) use of aspirin; Z91.040 Latex allergy status; Z88.5 Allergy status to narcotic agent; Z88.8 Allergy status to other drugs, medicaments and biological substances; I27.20 Pulmonary hypertension, unspecified; I36.0 Nonrheumatic tricuspid (valve) stenosis; E83.42 Hypomagnesemia

== ENCOUNTER → 2023-08-26 | Outpatient (REF) | payer MEDICARE, BC, OTHER ==
[~2023-08-26] MED LIST changes: +ASPI-1 PO; +ATOR40TA75 PO; -BENZ1LOZ2 PO; +BISA10SU PR; +FOLI1TAB11 PO; +LOPR1TAB6 PO; +METH-855 PO; +QUET1TAB17 PO; +SENN1TAB94 PO; +SORE15LO PO; +VENL150C43 PO; +VENL37.598 PO
== END ==
LOC: M SMT 15:24 → EEVIPCON 15:24
PROVIDERS: ATTEND Urology
DX: R33.9 Retention of urine, unspecified (principal)

== ENCOUNTER 2023-10-23 22:02 | Inpatient (IN) | payer MEDICARE, BC, OTHER ==
[~2023-10-23] VITALS: Ht 172.7 cm; Wt 65.1 kg
[2023-10-23] MEDS ORDERED: NS 1,000 ML IV ONE (22:15)
[2023-10-23] MEDS ORDERED: NS IV ONE (22:15)
[2023-10-23 22:44] LABS: BASO % 0.2 % (0.0-1.0); HEMATOCRIT 29.9 % (42.0-52.0); HEMOGLOBIN 8.8 g/dl (13.5-17.5); LYMPH # 0.3 10^3/uL (1.5-5.0); LYMPH % 1.5 % (24.0-44.0); MEAN CORPUSCULAR HEMOGLOBIN 25.1 pg (27.0-33.0); MEAN CORPUSCULAR HGB CONC 29.4 g/dl (32.0-36.5); MEAN CORPUSCULAR VOLUME 85.2 fl (80.0-96.0); MONO # 0.1 10^3/uL (0.0-0.8); MONO % 0.8 % (2.0-8.0); NEUTROPHILS # 17.6 10^3/uL (1.5-8.5); NEUTROPHILS % 96.5 % (36.0-66.0); PLATELET COUNT, AUTOMATED 334 10^3/uL (150-450); RED BLOOD COUNT 3.51 10^6/uL (4.30-6.10); WHITE BLOOD COUNT 18.3 10^3/uL (4.0-10.0)
[2023-10-23] MEDS ORDERED: ACETAMINOPHEN 650MG SUPP PR ONE (22:50)
[2023-10-23 22:56] LABS: AMYLASE 28 U/L (30-118)
[2023-10-23 22:57] LABS: ALBUMIN 1.3 G/DL (3.2-5.2); ALKALINE PHOSPHATASE 284 U/L (46-116); ALT/SGPT 12 U/L (7.0-40); AST/SGOT 49 U/L (<34); BILIRUBIN,DIRECT < 0.1 MG/DL (<0.4); BILIRUBIN,TOTAL < 0.2 MG/DL (0.3-1.2); BLOOD UREA NITROGEN 18 MG/DL (9-23); CALCIUM LEVEL 7.9 MG/DL (8.3-10.6); CARBON DIOXIDE LEVEL 20 MMOL/L (20-31); CHLORIDE LEVEL 107 MMOL/L (98-107); CK-MB VALUE MASS < 1.0 NG/ML (<3.6); CREATININE FOR GFR 1.49 MG/DL (0.70-1.30); GLOMERULAR FILTRATION RATE 48.7 (>42); GLUCOSE, FASTING 103 MG/DL (74-106); SODIUM LEVEL 138 MMOL/L (136-145); TOTAL PROTEIN 6.2 G/DL (5.7-8.2)
[2023-10-23 23:04] LABS: INR 1.36; PROTHROMBIN TIME 16.4 SECONDS (12.5-14.5)
[2023-10-23 23:05] LABS: PARTIAL THROMBOPLASTIN TIME 41.1 SECONDS (24.8-34.2)
[2023-10-23] MEDS ORDERED: VANCOMYCIN HCL 1,250 MG in NS 250 ML IV ONE (23:05)
[2023-10-23] MEDS ORDERED: MEROPENEM INJ 1 GM in IV 1 EA IV ONE (23:05)
[2023-10-23] MEDS ORDERED: HYDROCORTISONE 100MG/2ML VIAL IV ONE (23:05)
[2023-10-23 23:13] LABS: CPK CREATINE PHOSPHOKINASE 206 U/L (46-171); MB/CK RELATIVE INDEX 0.48 (< OR =4); PROCALCITONIN >50.00 ng/ml
[2023-10-23] MEDS ORDERED: VANCOMYCIN HCL 500 MG in D5W MINI-BAG PLUS 100 ML IV ONE (23:30)
[2023-10-23] MEDS ORDERED: VANCOMYCIN HCL 750 MG, VIAL MATE ADAPTER 1 EACH in D5W 250 ML IV ONE (23:30)
[2023-10-24] VITALS (58 sets, daily range): BP systolic 78–124; BP diastolic 49–72; TEMP 98.3–101.5; O2SAT 90–99
[2023-10-24] MEDS ORDERED: NS 1,000 ML IV ONE
[2023-10-24] MEDS ORDERED: METH-855 PO (00:46)
[2023-10-24] MEDS ORDERED: ATOR40TA75 PO (00:46)
[2023-10-24] MEDS ORDERED: ACET-683 PO ×2 (00:46)
[2023-10-24] MEDS ORDERED: LANTINJ4 SC (00:46)
[2023-10-24] MEDS ORDERED: METO50TA7 PO (00:46)
[2023-10-24] MEDS ORDERED: JANU25TA PO (00:46)
[2023-10-24] MEDS ORDERED: FOLI1TAB11 PO (00:46)
[2023-10-24] MEDS ORDERED: GABA-1171 PO (00:46)
[2023-10-24] MEDS ORDERED: BAYE325T12 PO (00:46)
[2023-10-24] MEDS ORDERED: HOME MED LIST COMPLETE! XX SCH (00:50)
[2023-10-24 00:53] LABS: CK-MB VALUE MASS < 1.0 NG/ML (<3.6)
[2023-10-24 00:55] LABS: ABG BASE EXCESS -9.6 (-2.0-2.0); ABG HCO3 13.4 MMOL/L (22.0-26.0); ABG O2 SATURATION 95.8 % (95.0-99.0); ABG PARTIAL PRESSURE CO2 20.3 mmHg (35.0-45.0); ABG PARTIAL PRESSURE O2 84.6 mmHg (75.0-100.0); ABG STANDARD HCO3 16.5 MMOL/L. (22.0-26.0); ABG pH (ARTERIAL) 7.437 UNITS (7.350-7.450)
[2023-10-24 00:56] LABS: CPK CREATINE PHOSPHOKINASE 266 U/L (46-171); MB/CK RELATIVE INDEX 0.37 (< OR =4)
[2023-10-24] MEDS ORDERED: MOM 30ML SUSPENSION UDC PO PRN (01:55)
[2023-10-24] MEDS: LR 1,000 ML IV SCH ×3 (02:07→14:50)
[2023-10-24] MEDS ORDERED: NOREPINEPHRINE 4MG IN D5 250ML 4 MG in IV 1 EA IV SCH ×2 (02:20)
[2023-10-24 03:05] LABS: APPEARANCE, URINE TURBID (CLEAR); BACTERIA, URINE AUTO NEGATIVE (NEGATIVE); BILIRUBIN, URINE AUTO NEGATIVE (NEGATIVE); BLOOD, URINE BLOOD 3+ (NEGATIVE); COLOR, URINE YELLOW (YELLOW); GLUCOSE, URINE (UA) AUTO NEGATIVE (NEGATIVE); KETONE, URINE AUTO NEGATIVE (NEGATIVE); LEUKOCYTE ESTERASE, URINE AUTO 3+ (NEGATIVE); NITRITE, URINE AUTO NEGATIVE (NEGATIVE); PROTEIN, URINE AUTO 2+ mg/dL (NEGATIVE); RBC, URINE AUTO TNTC /HPF (0-3); SPECIFIC GRAVITY URINE AUTO 1.011 (1.002-1.035); SQUAMOUS EPITHELIAL CELL UR AU 3 /HPF (0-6); UROBILINOGEN, URINE AUTO 0.2 mg/dL (0.0-2.0); WBC, URINE AUTO TNTC /HPF (0-3)
[2023-10-24] MEDS ORDERED: GLUCAGON INJ 1MG VIAL SC PRN (03:25)
[2023-10-24] MEDS ORDERED: GLUCOSE 4GM CHEW TABLET PO PRN (03:25)
[2023-10-24] MEDS ORDERED: DEXTROSE 50% 50ML SYRINGE IV PRN (03:25)
[2023-10-24 05:34] LABS: HEMATOCRIT 25.6 % (42.0-52.0); HEMOGLOBIN 7.4 g/dl (13.5-17.5); MEAN CORPUSCULAR HEMOGLOBIN 24.8 pg (27.0-33.0); MEAN CORPUSCULAR HGB CONC 28.9 g/dl (32.0-36.5); MEAN CORPUSCULAR VOLUME 85.9 fl (80.0-96.0); PLATELET COUNT, AUTOMATED 287 10^3/uL (150-450); RED BLOOD COUNT 2.98 10^6/uL (4.30-6.10); WHITE BLOOD COUNT 40.6 10^3/uL (4.0-10.0)
[2023-10-24] MEDS: INSULIN LISPRO (NovoLOG) PER UNIT SC SCH ×3 (05:54→17:21)
[2023-10-24] MEDS: HEPARIN SOD (PORCINE) 5000UNITS/ML 1ML VIAL/SYRINGE SC SCH ×3 (06:07→23:04)
[2023-10-24 06:24] LABS: ALBUMIN 1.1 G/DL (3.2-5.2); ALKALINE PHOSPHATASE 211 U/L (46-116); ALT/SGPT < 9 U/L (7.0-40); AST/SGOT 39 U/L (<34); BILIRUBIN,TOTAL < 0.2 MG/DL (0.3-1.2); BLOOD UREA NITROGEN 19 MG/DL (9-23); CALCIUM LEVEL 7.2 MG/DL (8.3-10.6); CARBON DIOXIDE LEVEL 17 MMOL/L (20-31); CHLORIDE LEVEL 112 MMOL/L (98-107); CREATININE FOR GFR 1.57 MG/DL (0.70-1.30); GLOMERULAR FILTRATION RATE 45.8 (>42); GLUCOSE, FASTING 171 MG/DL (74-106); MAGNESIUM LEVEL 1.1 MG/DL (1.8-2.4); POTASSIUM SERUM 3.8 MMOL/L (3.5-5.1); SODIUM LEVEL 141 MMOL/L (136-145); TOTAL PROTEIN 5.3 G/DL (5.7-8.2)
[2023-10-24] MEDS: DOCUSATE SODIUM 100MG CAPSULE PO SCH ×2 (09:00→20:17)
[2023-10-24] MEDS: MEROPENEM INJ 1 GM in IV 1 EA IV SCH ×2 (09:09→16:36)
[2023-10-24] MEDS: PANTOPRAZOLE 40MG VIAL IV SCH (09:09)
[2023-10-24] MEDS ORDERED: LR 1,000 ML IV ONE (09:30)
[2023-10-24] MEDS ORDERED: MAG SULF 1GM/100ML (MAG RUN) 1 GM in IV 1 EA IV ONE (10:00)
[2023-10-24] MEDS: LEVEMIR (INSULIN DETEMIR) 1 UNITS/0.01ML SC SCH ×2 (10:10→20:18)
[2023-10-24] MEDS ORDERED: VANCOMYCIN HCL 1,000 MG, VIAL MATE ADAPTER 1 EACH in D5W 250 ML IV SCH (14:00)
[2023-10-24] MEDS ORDERED: D5W MINI IV SCH (16:00)
[2023-10-24] MEDS ORDERED: CEFTAZIDIME IV SCH (16:00)
[2023-10-24] MEDS ORDERED: AVIBACTAM IV SCH (16:00)
[2023-10-24] MEDS: MAG SULF 1GM/100ML (MAG RUN) 1 GM in IV 1 EA IV SCH ×3 (16:36→18:43)
[2023-10-24] MEDS: D5W IV SCH ×2 (17:20→23:04)
[2023-10-24] MEDS: CEFTAZIDIME IV SCH ×2 (17:20→23:04)
[2023-10-24] MEDS: AVIBACTAM IV SCH ×2 (17:20→23:04)
[2023-10-24] MEDS: ATORVASTATIN 20 MG TAB PO SCH (20:17)
[2023-10-24] MEDS: ACETAMINOPHEN TAB 650MG DOSE (2X325MG) PO PRN (20:18)
[2023-10-24] MEDS ORDERED: INSULIN LISPRO (NovoLOG) PER UNIT SC SCH (21:00)
[2023-10-25] VITALS (16 sets, daily range): BP systolic 89–123; BP diastolic 53–78; TEMP 96.6–101.3; O2SAT 96–99
[2023-10-25] MEDS ORDERED: LR 1,000 ML IV ONE (00:35)
[2023-10-25] MEDS: ACETAMINOPHEN TAB 650MG DOSE (2X325MG) PO PRN (01:31)
[2023-10-25 01:54] LABS: POTASSIUM SERUM 3.6 MMOL/L (3.5-5.1)
[2023-10-25] MEDS ORDERED: POTASSIUM CHLORIDE 10% LIQ 20MEQ/15ML UDC PO ONE (02:00)
[2023-10-25 05:07] LABS: HEMATOCRIT 23.3 % (42.0-52.0); MEAN CORPUSCULAR HEMOGLOBIN 25.1 pg (27.0-33.0); MEAN CORPUSCULAR VOLUME 83.5 fl (80.0-96.0); PLATELET COUNT, AUTOMATED 101 10^3/uL (150-450); RED BLOOD COUNT 2.79 10^6/uL (4.30-6.10)
[2023-10-25] MEDS: LR 1,000 ML IV SCH ×3 (05:23→20:50)
[2023-10-25 05:32] LABS: CALCIUM LEVEL 6.8 MG/DL (8.3-10.6); CREATININE FOR GFR 1.61 MG/DL (0.70-1.30); GLOMERULAR FILTRATION RATE 44.5 (>42); MAGNESIUM LEVEL 1.9 MG/DL (1.8-2.4); PHOSPHORUS LEVEL 2.9 MG/DL (2.4-5.1); POTASSIUM SERUM 3.7 MMOL/L (3.5-5.1)
[2023-10-25 05:38] LABS: ATYPICAL LYMPH 1 % (0-5); EOSINOPHILS 1 % (0-3); LYMPHOCYTES 14 % (16-44); MONOCYTES 2 % (0-5); NEUTROPHILS 80 % (28-66); PLATELET ESTIMATE DECREASED (NORMAL)
[2023-10-25 05:39] LABS: ANISOCYTOSIS 1+; HYPOCHROMASIA 1+
[2023-10-25] MEDS: HEPARIN SOD (PORCINE) 5000UNITS/ML 1ML VIAL/SYRINGE SC SCH (06:12)
[2023-10-25] MEDS: INSULIN LISPRO (NovoLOG) PER UNIT SC SCH ×3 (07:30→20:11)
[2023-10-25] MEDS: LEVEMIR (INSULIN DETEMIR) 1 UNITS/0.01ML SC SCH (09:00)
[2023-10-25] MEDS: DOCUSATE SODIUM 100MG CAPSULE PO SCH (09:00)
[2023-10-25] MEDS: D5W IV SCH ×3 (09:06→23:56)
[2023-10-25] MEDS: CEFTAZIDIME IV SCH ×3 (09:06→23:56)
[2023-10-25] MEDS: AVIBACTAM IV SCH ×3 (09:06→23:56)
[2023-10-25] MEDS: ASPIRIN 325 MG TAB PO SCH (09:06)
[2023-10-25] MEDS: PANTOPRAZOLE 40MG VIAL IV SCH (09:07)
[2023-10-25] MEDS ORDERED: INSULIN LISPRO (NovoLOG) PER UNIT SC SCH (12:00)
[2023-10-25] MEDS ORDERED: VANCOMYCIN HCL 750 MG, VIAL MATE ADAPTER 1 EACH in D5W 250 ML IV SCH (14:00)
[2023-10-25] MEDS ORDERED: ISOVUE-300 61% 100ML VIAL As Ordered ONE (14:42)
[2023-10-25] MEDS ORDERED: fentaNYL 100 MCG/2 ML INJECTION As Ordered ONE (15:28)
[2023-10-25] MEDS ORDERED: MIDAZOLAM INJ 2MG/2ML VIAL As Ordered ONE (15:29)
[2023-10-25] MEDS ORDERED: KETAMINE HCL 200MG/20ML VIAL As Ordered ONE (15:30)
[2023-10-25] MEDS ORDERED: LIDOCAINE 2% 100MG/5ML SDV (FOR ANES.) As Ordered ONE (15:32)
[2023-10-25] MEDS ORDERED: propofoL 200 MG/20 ML VIAL As Ordered ONE (15:32)
[2023-10-25] MEDS ORDERED: ROCURONIUM BROMIDE 50MG/5ML VIAL As Ordered ONE (15:33)
[2023-10-25] MEDS ORDERED: PHENYLephrine 500MCG 5ML (100MCG/ML) SYRINGE As Ordered ONE (15:55)
[2023-10-25] MEDS: ATORVASTATIN 20 MG TAB PO SCH (20:16)
[2023-10-26] VITALS (7 sets, daily range): BP systolic 110–146; BP diastolic 60–83; TEMP 96.6–97.7; O2SAT 86–98
[2023-10-26 05:01] LABS: HEMATOCRIT 30.1 % (42.0-52.0); HEMOGLOBIN 9.6 g/dl (13.5-17.5); MEAN CORPUSCULAR HEMOGLOBIN 25.4 pg (27.0-33.0); MEAN CORPUSCULAR HGB CONC 31.9 g/dl (32.0-36.5); MEAN CORPUSCULAR VOLUME 79.6 fl (80.0-96.0); RED BLOOD COUNT 3.78 10^6/uL (4.30-6.10); WHITE BLOOD COUNT 16.7 10^3/uL (4.0-10.0)
[2023-10-26 05:06] LABS: PLATELET COUNT, AUTOMATED 78 10^3/uL (150-450)
[2023-10-26 05:20] LABS: BLOOD UREA NITROGEN 31 MG/DL (9-23); CARBON DIOXIDE LEVEL 18 MMOL/L (20-31); CHLORIDE LEVEL 106 MMOL/L (98-107); CREATININE FOR GFR 1.73 MG/DL (0.70-1.30); GLUCOSE, FASTING 128 MG/DL (74-106); POTASSIUM SERUM 3.9 MMOL/L (3.5-5.1); SODIUM LEVEL 132 MMOL/L (136-145)
[2023-10-26 05:29] LABS: EOSINOPHILS 3 % (0-3); LYMPHOCYTES 5 % (16-44); MONOCYTES 1 % (0-5); NEUTROPHILS 91 % (28-66); PLATELET ESTIMATE NORMAL (NORMAL)
[2023-10-26 05:30] LABS: ANISOCYTOSIS 1+; BURR CELLS 1+; HYPOCHROMASIA 1+; MICROCYTOSIS 1+
[2023-10-26] MEDS: LR 1,000 ML IV SCH (06:30)
[2023-10-26] MEDS: INSULIN LISPRO (NovoLOG) PER UNIT SC SCH ×4 (07:30→21:00)
[2023-10-26 07:50] LABS: PROCALCITONIN >50.00 ng/ml
[2023-10-26] MEDS: ASPIRIN 325 MG TAB PO SCH (08:29)
[2023-10-26] MEDS: PANTOPRAZOLE 40MG VIAL IV SCH (08:29)
[2023-10-26] MEDS: CEFTAZIDIME IV SCH ×3 (08:30→23:45)
[2023-10-26] MEDS: D5W IV SCH ×3 (08:30→23:45)
[2023-10-26] MEDS: AVIBACTAM IV SCH ×3 (08:30→23:45)
[2023-10-26] MEDS: METOPROLOL TART 25 MG TABLET PO SCH ×2 (09:00→20:47)
[2023-10-26 09:28] LABS: IRON (FE) 68 UG/DL (65-175); PERCENT SATURATION 53.5 % (19.7-50.0); TOTAL IRON BINDING CAPACITY 127 UG/DL (250-425)
[2023-10-26] MEDS: SODIUM BICARBONATE 325 MG TAB PO SCH ×2 (09:30→20:47)
[2023-10-26] MEDS ORDERED: FUROSEMIDE 100MG/10ML VIAL IV ONE (10:00)
[2023-10-26 10:16] LABS: MAGNESIUM LEVEL 1.7 MG/DL (1.8-2.4)
[2023-10-26] MEDS ORDERED: ONDANSETRON 4MG 2ML VIAL IV ONE (13:00)
[2023-10-26] MEDS: MAG SULF 1GM/100ML (MAG RUN) 1 GM in IV 1 EA IV SCH ×2 (14:49→16:16)
[2023-10-26] MEDS ORDERED: PROMETHAZINE 25MG/ML 1ML VIAL IV ONE (20:10)
[2023-10-26] MEDS: ATORVASTATIN 20 MG TAB PO SCH (20:47)
[2023-10-27 03:09] VITALS: BP 114/67; TEMP 97.3; O2SAT 93
[2023-10-27 06:22] LABS: BASO % 0.2 % (0.0-1.0); EOS # 0.3 10^3/uL (0.0-0.5); EOS % 2.7 % (0.0-3.0); HEMATOCRIT 31.3 % (42.0-52.0); HEMOGLOBIN 9.7 g/dl (13.5-17.5); LYMPH # 1.5 10^3/uL (1.5-5.0); LYMPH % 12.2 % (24.0-44.0); MEAN CORPUSCULAR HEMOGLOBIN 25.2 pg (27.0-33.0); MEAN CORPUSCULAR VOLUME 81.3 fl (80.0-96.0); MONO # 0.6 10^3/uL (0.0-0.8); MONO % 4.8 % (2.0-8.0); NEUTROPHILS # 9.7 10^3/uL (1.5-8.5); NEUTROPHILS % 79.6 % (36.0-66.0); RED BLOOD COUNT 3.85 10^6/uL (4.30-6.10); WHITE BLOOD COUNT 12.2 10^3/uL (4.0-10.0)
[2023-10-27 06:23] LABS: PLATELET COUNT, AUTOMATED 70 10^3/uL (150-450)
[2023-10-27 06:48] LABS: CALCIUM LEVEL 7.2 MG/DL (8.3-10.6); CREATININE FOR GFR 2.16 MG/DL (0.70-1.30); GLOMERULAR FILTRATION RATE 31.7 (>42); MAGNESIUM LEVEL 2.1 MG/DL (1.8-2.4); POTASSIUM SERUM 3.8 MMOL/L (3.5-5.1)
[2023-10-27] MEDS: INSULIN LISPRO (NovoLOG) PER UNIT SC SCH ×4 (07:30→20:32)
[2023-10-27 07:56] VITALS: BP 120/68; TEMP 97.6; O2SAT 95
[2023-10-27] MEDS: D5W IV SCH ×2 (09:13→20:33)
[2023-10-27] MEDS: AVIBACTAM IV SCH ×2 (09:13→20:33)
[2023-10-27] MEDS: CEFTAZIDIME IV SCH ×2 (09:13→20:33)
[2023-10-27] MEDS: PANTOPRAZOLE 40MG VIAL IV SCH (09:13)
[2023-10-27] MEDS: SODIUM BICARBONATE 325 MG TAB PO SCH ×2 (09:13→20:33)
[2023-10-27] MEDS: METOPROLOL TART 25 MG TABLET PO SCH ×2 (09:15→20:34)
[2023-10-27] MEDS: ASPIRIN 325 MG TAB PO SCH (09:18)
[2023-10-27] MEDS ORDERED: metOLazone 5 MG TAB PO ONE (12:00)
[2023-10-27] MEDS ORDERED: FUROSEMIDE 100MG/10ML VIAL IV ONE (12:00)
[2023-10-27 12:12] VITALS: BP 146/74; TEMP 97.9; O2SAT 94
[2023-10-27 15:08] LABS: ALBUMIN 0.9 G/DL (3.2-5.2); ALKALINE PHOSPHATASE 145 U/L (46-116); ALT/SGPT < 9 U/L (7.0-40); AST/SGOT 23 U/L (<34); BILIRUBIN,TOTAL 0.2 MG/DL (0.3-1.2); BLOOD UREA NITROGEN 37 MG/DL (9-23); CALCIUM LEVEL 7.3 MG/DL (8.3-10.6); CARBON DIOXIDE LEVEL 20 MMOL/L (20-31); CHLORIDE LEVEL 107 MMOL/L (98-107); CREATININE FOR GFR 2.25 MG/DL (0.70-1.30); GLOMERULAR FILTRATION RATE 30.3 (>42); GLUCOSE, FASTING 158 MG/DL (74-106); SODIUM LEVEL 135 MMOL/L (136-145); TOTAL PROTEIN 4.6 G/DL (5.7-8.2)
[2023-10-27 16:36] LABS: ABG BASE EXCESS -4.8 (-2.0-2.0); ABG O2 SATURATION 95.4 % (95.0-99.0); ABG PARTIAL PRESSURE O2 79.8 mmHg (75.0-100.0); ABG STANDARD HCO3 20.5 MMOL/L. (22.0-26.0); ABG TOTAL CO2 18.8 MMOL/L (23.0-31.0); ABG pH (ARTERIAL) 7.459 UNITS (7.350-7.450)
[2023-10-27 19:43] VITALS: BP 109/67; TEMP 97; O2SAT 90
[2023-10-27] MEDS: ATORVASTATIN 20 MG TAB PO SCH (20:32)
[2023-10-28 00:20] VITALS: BP 124/75; TEMP 97.6; O2SAT 92
[2023-10-28 04:14] VITALS: BP 109/58; TEMP 96.7; O2SAT 91
[2023-10-28 06:28] LABS: HEMOGLOBIN 9.5 g/dl (13.5-17.5); MEAN CORPUSCULAR HGB CONC 30.6 g/dl (32.0-36.5); MEAN CORPUSCULAR VOLUME 81.6 fl (80.0-96.0)
[2023-10-28 06:29] LABS: PLATELET COUNT, AUTOMATED 72 10^3/uL (150-450)
[2023-10-28 06:35] LABS: VANCOMYCIN RANDOM 19.6 UG/ML
[2023-10-28 06:36] LABS: C REACTIVE PROTEIN QUANTITATIV 10.5 MG/DL (<1.0)
[2023-10-28 06:40] LABS: CALCIUM LEVEL 7.4 MG/DL (8.3-10.6); CREATININE FOR GFR 2.45 MG/DL (0.70-1.30); GLOMERULAR FILTRATION RATE 27.4 (>42); MAGNESIUM LEVEL 2.1 MG/DL (1.8-2.4); PHOSPHORUS LEVEL 4.1 MG/DL (2.4-5.1); POTASSIUM SERUM 3.7 MMOL/L (3.5-5.1)
[2023-10-28 08:00] VITALS: BP 145/83; TEMP 97.2; O2SAT 91
[2023-10-28] MEDS: ASPIRIN 325 MG TAB PO SCH (08:12)
[2023-10-28] MEDS: PANTOPRAZOLE 40MG VIAL IV SCH (08:12)
[2023-10-28] MEDS: SODIUM BICARBONATE 325 MG TAB PO SCH ×2 (08:12→21:14)
[2023-10-28] MEDS: METOPROLOL TART 25 MG TABLET PO SCH ×2 (08:13→21:14)
[2023-10-28] MEDS: D5W IV SCH ×2 (08:14→21:14)
[2023-10-28] MEDS: AVIBACTAM IV SCH ×2 (08:14→21:14)
[2023-10-28] MEDS: CEFTAZIDIME IV SCH ×2 (08:14→21:14)
[2023-10-28] MEDS: INSULIN LISPRO (NovoLOG) PER UNIT SC SCH ×4 (08:14→21:00)
[2023-10-28] MEDS ORDERED: NS 1,000 ML IV ONE (10:00)
[2023-10-28] MEDS ORDERED: FUROSEMIDE 100MG/10ML VIAL IV ONE (10:00)
[2023-10-28] MEDS ORDERED: metOLazone 5 MG TAB PO ONE (10:00)
[2023-10-28 12:14] VITALS: BP_SYST 108; BP_SYST 138; BP_DIAS 72; BP_DIAS 78; TEMP 97.6; O2SAT 96
[2023-10-28 15:10] VITALS: BP 101/54; TEMP 98; O2SAT 95
[2023-10-28 20:10] VITALS: BP 137/67; TEMP 96.7; O2SAT 95
[2023-10-28] MEDS: ATORVASTATIN 20 MG TAB PO SCH (21:14)
[2023-10-29] VITALS (8 sets, daily range): BP systolic 133–151; BP diastolic 69–80; TEMP 96.8–97.6; O2SAT 93–98
[2023-10-29 07:23] LABS: C REACTIVE PROTEIN QUANTITATIV 11.3 MG/DL (<1.0)
[2023-10-29 07:24] LABS: VANCOMYCIN RANDOM 17.5 UG/ML
[2023-10-29 07:31] LABS: CALCIUM LEVEL 7.5 MG/DL (8.3-10.6); CREATININE FOR GFR 2.6 MG/DL (0.70-1.30); GLOMERULAR FILTRATION RATE 25.6 (>42); POTASSIUM SERUM 3.8 MMOL/L (3.5-5.1); PROCALCITONIN 16.93 ng/ml
[2023-10-29 08:34] LABS: BASO % 0.4 % (0.0-1.0); EOS # 0.4 10^3/uL (0.0-0.5); EOS % 4.4 % (0.0-3.0); HEMATOCRIT 33.5 % (42.0-52.0); HEMOGLOBIN 10.3 g/dl (13.5-17.5); LYMPH # 1.2 10^3/uL (1.5-5.0); LYMPH % 12.1 % (24.0-44.0); MEAN CORPUSCULAR HEMOGLOBIN 24.9 pg (27.0-33.0); MEAN CORPUSCULAR HGB CONC 30.7 g/dl (32.0-36.5); MEAN CORPUSCULAR VOLUME 80.9 fl (80.0-96.0); MONO # 0.9 10^3/uL (0.0-0.8); MONO % 8.6 % (2.0-8.0); NEUTROPHILS # 7.3 10^3/uL (1.5-8.5); RED BLOOD COUNT 4.14 10^6/uL (4.30-6.10); WHITE BLOOD COUNT 9.8 10^3/uL (4.0-10.0)
[2023-10-29 08:45] LABS: PLATELET COUNT, AUTOMATED 90 10^3/uL (150-450)
[2023-10-29] MEDS: INSULIN LISPRO (NovoLOG) PER UNIT SC SCH ×4 (10:10→21:00)
[2023-10-29] MEDS: AVIBACTAM IV SCH (10:15)
[2023-10-29] MEDS: D5W IV SCH (10:15)
[2023-10-29] MEDS: CEFTAZIDIME IV SCH (10:15)
[2023-10-29] MEDS: PANTOPRAZOLE 40MG VIAL IV SCH (10:16)
[2023-10-29] MEDS: ASPIRIN 325 MG TAB PO SCH (10:16)
[2023-10-29] MEDS: METOPROLOL TART 25 MG TABLET PO SCH ×2 (10:17→21:20)
[2023-10-29] MEDS: SODIUM BICARBONATE 325 MG TAB PO SCH ×2 (10:17→21:19)
[2023-10-29] MEDS ORDERED: LIDOCAINE 1% MDV 20ML VIAL As Ordered ONE (13:30)
[2023-10-29] MEDS ORDERED: SODIUM CHLORIDE 0.9% INJ 10 ML SYR IV PRN (17:45)
[2023-10-29] MEDS: SODIUM CHLORIDE 0.9% INJ 10 ML SYR IV SCH (18:40)
[2023-10-29] MEDS: ATORVASTATIN 20 MG TAB PO SCH (21:20)
[2023-10-30 05:43] LABS: BASO % 0.6 % (0.0-1.0); EOS # 0.5 10^3/uL (0.0-0.5); EOS % 6.4 % (0.0-3.0); HEMATOCRIT 28.8 % (42.0-52.0); HEMOGLOBIN 8.7 g/dl (13.5-17.5); LYMPH # 0.8 10^3/uL (1.5-5.0); LYMPH % 11.7 % (24.0-44.0); MEAN CORPUSCULAR HEMOGLOBIN 24.4 pg (27.0-33.0); MEAN CORPUSCULAR HGB CONC 30.2 g/dl (32.0-36.5); MEAN CORPUSCULAR VOLUME 80.9 fl (80.0-96.0); MONO # 0.7 10^3/uL (0.0-0.8); NEUTROPHILS % 70.7 % (36.0-66.0); PLATELET COUNT, AUTOMATED 104 10^3/uL (150-450); RED BLOOD COUNT 3.56 10^6/uL (4.30-6.10)
[2023-10-30 06:05] LABS: CALCIUM LEVEL 7.4 MG/DL (8.3-10.6); CREATININE FOR GFR 2.67 MG/DL (0.70-1.30); GLOMERULAR FILTRATION RATE 24.8 (>42); POTASSIUM SERUM 3.4 MMOL/L (3.5-5.1)
[2023-10-30] MEDS: SODIUM CHLORIDE 0.9% INJ 10 ML SYR IV SCH ×2 (06:56→18:24)
[2023-10-30] MEDS ORDERED: POTASSIUM CHLORIDE 10MEQ SR TABLET PO ONE ×2 (07:15→08:30)
[2023-10-30 07:30] VITALS: BP 133/68; TEMP 96.7; O2SAT 94
[2023-10-30 07:40] LABS: C REACTIVE PROTEIN QUANTITATIV 8.9 MG/DL (<1.0)
[2023-10-30] MEDS: KCL 20MEQ IN 100ML SWI (KRUN) 20 MEQ in IV 1 EA IV SCH ×4 (08:09→08:37)
[2023-10-30] MEDS: INSULIN LISPRO (NovoLOG) PER UNIT SC SCH ×4 (08:09→20:48)
[2023-10-30] MEDS: METOPROLOL TART 25 MG TABLET PO SCH ×2 (08:10→20:49)
[2023-10-30] MEDS: SODIUM BICARBONATE 325 MG TAB PO SCH ×2 (08:10→20:49)
[2023-10-30] MEDS: ASPIRIN 325 MG TAB PO SCH (08:10)
[2023-10-30] MEDS: PANTOPRAZOLE 40MG VIAL IV SCH (10:23)
[2023-10-30] MEDS: D5W IV SCH (10:23)
[2023-10-30] MEDS: CEFTAZIDIME IV SCH (10:23)
[2023-10-30] MEDS: AVIBACTAM IV SCH (10:23)
[2023-10-30 12:00] VITALS: BP 139/73; TEMP 96.6; O2SAT 94
[2023-10-30 16:00] VITALS: BP 142/72; TEMP 97.2; O2SAT 91
[2023-10-30 19:52] VITALS: BP 137/76; TEMP 97; O2SAT 90
[2023-10-30] MEDS: HEPARIN SOD (PORCINE) 5000UNITS/ML 1ML VIAL/SYRINGE SQ SCH (20:48)
[2023-10-30] MEDS: ATORVASTATIN 20 MG TAB PO SCH (20:49)
[2023-10-31] VITALS (8 sets, daily range): BP systolic 123–148; BP diastolic 62–86; TEMP 96.3–98; O2SAT 94–97
[2023-10-31] MEDS: SODIUM CHLORIDE 0.9% INJ 10 ML SYR IV SCH ×2 (06:21→17:26)
[2023-10-31 06:28] LABS: BASO # 0.1 10^3/uL (0.0-0.2); BASO % 0.6 % (0.0-1.0); EOS # 0.8 10^3/uL (0.0-0.5); EOS % 8.4 % (0.0-3.0); HEMATOCRIT 29.3 % (42.0-52.0); HEMOGLOBIN 9.1 g/dl (13.5-17.5); MEAN CORPUSCULAR HEMOGLOBIN 25.1 pg (27.0-33.0); MEAN CORPUSCULAR HGB CONC 31.1 g/dl (32.0-36.5); MEAN CORPUSCULAR VOLUME 80.7 fl (80.0-96.0); MONO # 0.6 10^3/uL (0.0-0.8); NEUTROPHILS # 6.5 10^3/uL (1.5-8.5); NEUTROPHILS % 72.2 % (36.0-66.0); PLATELET COUNT, AUTOMATED 140 10^3/uL (150-450); RED BLOOD COUNT 3.63 10^6/uL (4.30-6.10)
[2023-10-31 06:44] LABS: C REACTIVE PROTEIN QUANTITATIV 8.2 MG/DL (<1.0)
[2023-10-31 06:45] LABS: CALCIUM LEVEL 7.5 MG/DL (8.3-10.6); CREATININE FOR GFR 2.68 MG/DL (0.70-1.30); GLOMERULAR FILTRATION RATE 24.7 (>42); POTASSIUM SERUM 3.6 MMOL/L (3.5-5.1)
[2023-10-31] MEDS: D5W IV SCH (08:48)
[2023-10-31] MEDS: AVIBACTAM IV SCH (08:48)
[2023-10-31] MEDS: HEPARIN SOD (PORCINE) 5000UNITS/ML 1ML VIAL/SYRINGE SQ SCH ×2 (08:48→20:43)
[2023-10-31] MEDS: CEFTAZIDIME IV SCH (08:48)
[2023-10-31] MEDS: SODIUM BICARBONATE 325 MG TAB PO SCH ×2 (08:48→20:43)
[2023-10-31] MEDS: ASPIRIN 325 MG TAB PO SCH (08:48)
[2023-10-31] MEDS: PANTOPRAZOLE 40MG VIAL IV SCH (08:48)
[2023-10-31] MEDS: INSULIN LISPRO (NovoLOG) PER UNIT SC SCH ×4 (08:49→20:43)
[2023-10-31] MEDS: METOPROLOL TART 25 MG TABLET PO SCH ×2 (08:49→20:43)
[2023-10-31] MEDS: ATORVASTATIN 20 MG TAB PO SCH (20:43)
[2023-11-01] VITALS (7 sets, daily range): BP systolic 122–157; BP diastolic 60–82; TEMP 96.5–98.2; O2SAT 95–100
[2023-11-01] MEDS: SODIUM CHLORIDE 0.9% INJ 10 ML SYR IV SCH ×2 (05:31→18:12)
[2023-11-01 06:46] LABS: BASO % 0.4 % (0.0-1.0); EOS # 0.9 10^3/uL (0.0-0.5); EOS % 7.7 % (0.0-3.0); HEMATOCRIT 26.6 % (42.0-52.0); HEMOGLOBIN 8.3 g/dl (13.5-17.5); LYMPH # 1.3 10^3/uL (1.5-5.0); LYMPH % 12.1 % (24.0-44.0); MEAN CORPUSCULAR HEMOGLOBIN 25.1 pg (27.0-33.0); MEAN CORPUSCULAR HGB CONC 31.2 g/dl (32.0-36.5); MEAN CORPUSCULAR VOLUME 80.4 fl (80.0-96.0); MONO # 0.7 10^3/uL (0.0-0.8); NEUTROPHILS # 8.1 10^3/uL (1.5-8.5); NEUTROPHILS % 73.3 % (36.0-66.0); PLATELET COUNT, AUTOMATED 174 10^3/uL (150-450); RED BLOOD COUNT 3.31 10^6/uL (4.30-6.10)
[2023-11-01 07:14] LABS: C REACTIVE PROTEIN QUANTITATIV 7.9 MG/DL (<1.0)
[2023-11-01 07:36] LABS: CALCIUM LEVEL 7.6 MG/DL (8.3-10.6); CREATININE FOR GFR 2.62 MG/DL (0.70-1.30); GLOMERULAR FILTRATION RATE 25.4 (>42); MAGNESIUM LEVEL 1.9 MG/DL (1.8-2.4); POTASSIUM SERUM 3.3 MMOL/L (3.5-5.1)
[2023-11-01] MEDS ORDERED: POTASSIUM CHLORIDE 10MEQ SR TABLET PO ONE (08:05)
[2023-11-01] MEDS: SODIUM BICARBONATE 325 MG TAB PO SCH ×2 (08:29→21:29)
[2023-11-01] MEDS: ASPIRIN 325 MG TAB PO SCH (08:29)
[2023-11-01] MEDS: METOPROLOL TART 25 MG TABLET PO SCH ×2 (08:30→21:30)
[2023-11-01] MEDS: INSULIN LISPRO (NovoLOG) PER UNIT SC SCH ×4 (08:30→21:23)
[2023-11-01] MEDS: HEPARIN SOD (PORCINE) 5000UNITS/ML 1ML VIAL/SYRINGE SQ SCH ×2 (08:30→21:30)
[2023-11-01] MEDS: PANTOPRAZOLE 40MG VIAL IV SCH (08:30)
[2023-11-01] MEDS: D5W IV SCH (08:50)
[2023-11-01] MEDS: CEFTAZIDIME IV SCH (08:50)
[2023-11-01] MEDS: AVIBACTAM IV SCH (08:50)
[2023-11-01] MEDS: VENLAFAXINE **XR** 75MG CAPSULE PO SCH (12:13)
[2023-11-01] MEDS: PANTOPRAZOLE 40MG TAB (PROTONIX) PO SCH (21:30)
[2023-11-01] MEDS: ATORVASTATIN 20 MG TAB PO SCH (21:30)
[2023-11-02] VITALS (7 sets, daily range): BP systolic 117–145; BP diastolic 60–75; TEMP 97.3–98; O2SAT 94–98
[2023-11-02] MEDS: SODIUM CHLORIDE 0.9% INJ 10 ML SYR IV SCH ×2 (06:45→17:28)
[2023-11-02 07:31] LABS: BASO # 0.1 10^3/uL (0.0-0.2); BASO % 0.5 % (0.0-1.0); EOS # 0.7 10^3/uL (0.0-0.5); EOS % 6.5 % (0.0-3.0); HEMATOCRIT 28.5 % (42.0-52.0); HEMOGLOBIN 8.8 g/dl (13.5-17.5); LYMPH # 1.5 10^3/uL (1.5-5.0); LYMPH % 12.9 % (24.0-44.0); MEAN CORPUSCULAR HEMOGLOBIN 24.9 pg (27.0-33.0); MEAN CORPUSCULAR HGB CONC 30.9 g/dl (32.0-36.5); MEAN CORPUSCULAR VOLUME 80.7 fl (80.0-96.0); MONO # 0.7 10^3/uL (0.0-0.8); MONO % 6.4 % (2.0-8.0); NEUTROPHILS # 8.2 10^3/uL (1.5-8.5); NEUTROPHILS % 73.1 % (36.0-66.0); PLATELET COUNT, AUTOMATED 195 10^3/uL (150-450); RED BLOOD COUNT 3.53 10^6/uL (4.30-6.10); WHITE BLOOD COUNT 11.2 10^3/uL (4.0-10.0)
[2023-11-02 07:57] LABS: C REACTIVE PROTEIN QUANTITATIV 8.2 MG/DL (<1.0)
[2023-11-02 07:59] LABS: CALCIUM LEVEL 7.5 MG/DL (8.3-10.6); CREATININE FOR GFR 2.41 MG/DL (0.70-1.30); MAGNESIUM LEVEL 1.8 MG/DL (1.8-2.4); POTASSIUM SERUM 3.7 MMOL/L (3.5-5.1)
[2023-11-02] MEDS: VENLAFAXINE **XR** 75MG CAPSULE PO SCH (09:25)
[2023-11-02] MEDS: D5W IV SCH (09:25)
[2023-11-02] MEDS: CEFTAZIDIME IV SCH (09:25)
[2023-11-02] MEDS: SODIUM BICARBONATE 325 MG TAB PO SCH ×2 (09:25→20:30)
[2023-11-02] MEDS: ASPIRIN 325 MG TAB PO SCH (09:25)
[2023-11-02] MEDS: METOPROLOL TART 25 MG TABLET PO SCH ×2 (09:25→20:31)
[2023-11-02] MEDS: AVIBACTAM IV SCH (09:25)
[2023-11-02] MEDS: INSULIN LISPRO (NovoLOG) PER UNIT SC SCH ×4 (09:27→21:00)
[2023-11-02] MEDS ORDERED: LIDOCAINE 1% MDV 20ML VIAL As Ordered ONE (15:55)
[2023-11-02] MEDS: PANTOPRAZOLE 40MG TAB (PROTONIX) PO SCH (20:30)
[2023-11-02] MEDS: ATORVASTATIN 20 MG TAB PO SCH (20:30)
[2023-11-03 03:44] VITALS: BP 110/62; TEMP 98.4; O2SAT 94
[2023-11-03] MEDS: SODIUM CHLORIDE 0.9% INJ 10 ML SYR IV SCH ×2 (06:29→17:52)
[2023-11-03 07:02] LABS: BASO # 0.1 10^3/uL (0.0-0.2); BASO % 0.6 % (0.0-1.0); EOS # 0.4 10^3/uL (0.0-0.5); EOS % 3.4 % (0.0-3.0); HEMATOCRIT 27.2 % (42.0-52.0); HEMOGLOBIN 8.5 g/dl (13.5-17.5); LYMPH # 1.7 10^3/uL (1.5-5.0); LYMPH % 13.3 % (24.0-44.0); MEAN CORPUSCULAR HEMOGLOBIN 25.2 pg (27.0-33.0); MEAN CORPUSCULAR HGB CONC 31.3 g/dl (32.0-36.5); MEAN CORPUSCULAR VOLUME 80.7 fl (80.0-96.0); MONO # 0.7 10^3/uL (0.0-0.8); MONO % 5.4 % (2.0-8.0); NEUTROPHILS # 9.5 10^3/uL (1.5-8.5); NEUTROPHILS % 76.9 % (36.0-66.0); PLATELET COUNT, AUTOMATED 174 10^3/uL (150-450); RED BLOOD COUNT 3.37 10^6/uL (4.30-6.10); WHITE BLOOD COUNT 12.4 10^3/uL (4.0-10.0)
[2023-11-03 07:30] LABS: C REACTIVE PROTEIN QUANTITATIV 7.9 MG/DL (<1.0)
[2023-11-03 07:31] LABS: CALCIUM LEVEL 7.4 MG/DL (8.3-10.6); CREATININE FOR GFR 2.35 MG/DL (0.70-1.30); GLOMERULAR FILTRATION RATE 28.8 (>42); MAGNESIUM LEVEL 1.6 MG/DL (1.8-2.4); POTASSIUM SERUM 3.7 MMOL/L (3.5-5.1)
[2023-11-03 07:59] VITALS: BP 109/61; TEMP 97.8; O2SAT 93
[2023-11-03] MEDS: INSULIN LISPRO (NovoLOG) PER UNIT SC SCH ×4 (08:22→21:00)
[2023-11-03] MEDS: ASPIRIN 325 MG TAB PO SCH (08:23)
[2023-11-03] MEDS: VENLAFAXINE **XR** 75MG CAPSULE PO SCH (08:25)
[2023-11-03] MEDS: SODIUM BICARBONATE 325 MG TAB PO SCH ×2 (08:25→21:15)
[2023-11-03] MEDS: METOPROLOL TART 25 MG TABLET PO SCH ×2 (08:25→21:17)
[2023-11-03] MEDS: D5W IV SCH (08:27)
[2023-11-03] MEDS: MAG SULF 1GM/100ML (MAG RUN) 1 GM in IV 1 EA IV SCH ×2 (08:27→09:49)
[2023-11-03] MEDS: AVIBACTAM IV SCH (08:27)
[2023-11-03] MEDS: CEFTAZIDIME IV SCH (08:27)
[2023-11-03 12:32] VITALS: BP 100/63; TEMP 97.8; O2SAT 96
[2023-11-03] MEDS: PANTOPRAZOLE 40MG TAB (PROTONIX) PO SCH (21:14)
[2023-11-03] MEDS: ATORVASTATIN 20 MG TAB PO SCH (21:14)
[2023-11-03] MEDS: HEPARIN SOD (PORCINE) 5000UNITS/ML 1ML VIAL/SYRINGE SQ SCH (21:20)
[2023-11-04 03:57] VITALS: BP 146/68; TEMP 97.5; O2SAT 90
[2023-11-04] MEDS: SODIUM CHLORIDE 0.9% INJ 10 ML SYR IV SCH ×2 (06:05→17:23)
[2023-11-04 06:49] LABS: BASO # 0.1 10^3/uL (0.0-0.2); BASO % 0.9 % (0.0-1.0); EOS # 0.6 10^3/uL (0.0-0.5); HEMATOCRIT 27.9 % (42.0-52.0); HEMOGLOBIN 8.5 g/dl (13.5-17.5); LYMPH # 1.8 10^3/uL (1.5-5.0); LYMPH % 25.4 % (24.0-44.0); MEAN CORPUSCULAR HEMOGLOBIN 24.9 pg (27.0-33.0); MEAN CORPUSCULAR HGB CONC 30.5 g/dl (32.0-36.5); MEAN CORPUSCULAR VOLUME 81.8 fl (80.0-96.0); MONO # 0.8 10^3/uL (0.0-0.8); MONO % 11.3 % (2.0-8.0); NEUTROPHILS # 3.7 10^3/uL (1.5-8.5); NEUTROPHILS % 54.1 % (36.0-66.0); PLATELET COUNT, AUTOMATED 181 10^3/uL (150-450); RED BLOOD COUNT 3.41 10^6/uL (4.30-6.10); WHITE BLOOD COUNT 6.9 10^3/uL (4.0-10.0)
[2023-11-04 07:01] LABS: C REACTIVE PROTEIN QUANTITATIV 7.8 MG/DL (<1.0)
[2023-11-04 07:02] LABS: CALCIUM LEVEL 7.3 MG/DL (8.3-10.6); CREATININE FOR GFR 2.26 MG/DL (0.70-1.30); GLOMERULAR FILTRATION RATE 30.1 (>42); MAGNESIUM LEVEL 2.1 MG/DL (1.8-2.4); POTASSIUM SERUM 3.7 MMOL/L (3.5-5.1)
[2023-11-04] MEDS: INSULIN LISPRO (NovoLOG) PER UNIT SC SCH ×4 (08:44→21:00)
[2023-11-04] MEDS: HEPARIN SOD (PORCINE) 5000UNITS/ML 1ML VIAL/SYRINGE SQ SCH ×2 (08:44→21:08)
[2023-11-04] MEDS: ASPIRIN 325 MG TAB PO SCH (08:45)
[2023-11-04] MEDS: VENLAFAXINE **XR** 75MG CAPSULE PO SCH (08:45)
[2023-11-04] MEDS: SODIUM BICARBONATE 325 MG TAB PO SCH ×2 (08:45→21:09)
[2023-11-04 08:51] VITALS: BP 120/62; TEMP 96.8; O2SAT 95
[2023-11-04] MEDS: METOPROLOL TART 25 MG TABLET PO SCH ×2 (08:52→21:08)
[2023-11-04] MEDS: D5W IV SCH (08:53)
[2023-11-04] MEDS: AVIBACTAM IV SCH ×2 (08:53→22:08)
[2023-11-04] MEDS: CEFTAZIDIME IV SCH ×2 (08:53→22:08)
[2023-11-04 12:31] VITALS: BP 131/61; TEMP 97.2; O2SAT 94
[2023-11-04 15:40] VITALS: BP 135/72; TEMP 96.2; O2SAT 95
[2023-11-04 20:30] VITALS: BP 129/64; TEMP 97.5; O2SAT 96
[2023-11-04] MEDS: ATORVASTATIN 20 MG TAB PO SCH (21:09)
[2023-11-04] MEDS: PANTOPRAZOLE 40MG TAB (PROTONIX) PO SCH (21:09)
[2023-11-04] MEDS: D5W MINI IV SCH (22:08)
[2023-11-05] MEDS: SODIUM CHLORIDE 0.9% INJ 10 ML SYR IV SCH ×2 (06:35→17:34)
[2023-11-05 07:20] LABS: BASO # 0.1 10^3/uL (0.0-0.2); BASO % 1.5 % (0.0-1.0); EOS # 0.7 10^3/uL (0.0-0.5); EOS % 9.6 % (0.0-3.0); HEMATOCRIT 26.6 % (42.0-52.0); HEMOGLOBIN 8.3 g/dl (13.5-17.5); LYMPH # 2.2 10^3/uL (1.5-5.0); LYMPH % 29.8 % (24.0-44.0); MEAN CORPUSCULAR HGB CONC 31.2 g/dl (32.0-36.5); MEAN CORPUSCULAR VOLUME 80.1 fl (80.0-96.0); MONO # 0.9 10^3/uL (0.0-0.8); MONO % 12.5 % (2.0-8.0); NEUTROPHILS # 3.4 10^3/uL (1.5-8.5); NEUTROPHILS % 46.2 % (36.0-66.0); PLATELET COUNT, AUTOMATED 200 10^3/uL (150-450); RED BLOOD COUNT 3.32 10^6/uL (4.30-6.10); WHITE BLOOD COUNT 7.3 10^3/uL (4.0-10.0)
[2023-11-05 07:42] LABS: C REACTIVE PROTEIN QUANTITATIV 5.4 MG/DL (<1.0)
[2023-11-05 07:44] LABS: CALCIUM LEVEL 7.4 MG/DL (8.3-10.6); CREATININE FOR GFR 2.16 MG/DL (0.70-1.30); GLOMERULAR FILTRATION RATE 31.7 (>42); MAGNESIUM LEVEL 1.8 MG/DL (1.8-2.4); POTASSIUM SERUM 3.7 MMOL/L (3.5-5.1)
[2023-11-05 08:00] VITALS: BP 136/68; TEMP 98; O2SAT 97
[2023-11-05] MEDS: INSULIN LISPRO (NovoLOG) PER UNIT SC SCH ×4 (08:05→21:00)
[2023-11-05] MEDS: HEPARIN SOD (PORCINE) 5000UNITS/ML 1ML VIAL/SYRINGE SQ SCH ×2 (08:49→21:29)
[2023-11-05] MEDS: ASPIRIN 325 MG TAB PO SCH (08:50)
[2023-11-05] MEDS: METOPROLOL TART 25 MG TABLET PO SCH ×2 (08:54→21:29)
[2023-11-05] MEDS: VENLAFAXINE **XR** 75MG CAPSULE PO SCH (08:54)
[2023-11-05] MEDS: AVIBACTAM IV SCH ×2 (08:55→21:28)
[2023-11-05] MEDS: CEFTAZIDIME IV SCH ×2 (08:55→21:28)
[2023-11-05] MEDS: D5W MINI IV SCH ×2 (08:55→21:28)
[2023-11-05] MEDS: SODIUM BICARBONATE 325 MG TAB PO SCH ×2 (09:00→21:28)
[2023-11-05 11:13] LABS: PROCALCITONIN 1.09 ng/ml
[2023-11-05 16:00] VITALS: BP 126/66; TEMP 97.4; O2SAT 98
[2023-11-05 19:58] VITALS: BP 131/73; TEMP 97; O2SAT 97
[2023-11-05] MEDS: PANTOPRAZOLE 40MG TAB (PROTONIX) PO SCH (21:29)
[2023-11-05] MEDS: ATORVASTATIN 20 MG TAB PO SCH (21:29)
[2023-11-06 03:50] VITALS: BP 159/76; TEMP 97.2; O2SAT 98
[2023-11-06] MEDS: CEFTAZIDIME IV SCH (06:51)
[2023-11-06] MEDS: D5W MINI IV SCH (06:51)
[2023-11-06] MEDS: AVIBACTAM IV SCH (06:51)
[2023-11-06] MEDS: SODIUM CHLORIDE 0.9% INJ 10 ML SYR IV SCH ×2 (07:00→18:42)
[2023-11-06] MEDS: INSULIN LISPRO (NovoLOG) PER UNIT SC SCH ×3 (07:30→17:30)
[2023-11-06] MEDS ORDERED: D5W IV SCH ×3 (07:34→15:00)
[2023-11-06] MEDS ORDERED: CEFTAZIDIME IV SCH ×3 (07:34→15:00)
[2023-11-06] MEDS ORDERED: AVIBACTAM IV SCH ×3 (07:34→15:00)
[2023-11-06 07:46] VITALS: BP 134/70; TEMP 96.3; O2SAT 98
[2023-11-06 08:20] LABS: CALCIUM LEVEL 7.3 MG/DL (8.3-10.6); CREATININE FOR GFR 2.08 MG/DL (0.70-1.30); GLOMERULAR FILTRATION RATE 33.1 (>42); POTASSIUM SERUM 3.6 MMOL/L (3.5-5.1)
[2023-11-06 08:21] LABS: HEMATOCRIT 28.3 % (42.0-52.0); HEMOGLOBIN 8.6 g/dl (13.5-17.5); MEAN CORPUSCULAR HEMOGLOBIN 24.7 pg (27.0-33.0); MEAN CORPUSCULAR HGB CONC 30.4 g/dl (32.0-36.5); MEAN CORPUSCULAR VOLUME 81.3 fl (80.0-96.0); PLATELET COUNT, AUTOMATED 229 10^3/uL (150-450); RED BLOOD COUNT 3.48 10^6/uL (4.30-6.10); WHITE BLOOD COUNT 7.6 10^3/uL (4.0-10.0)
[2023-11-06] MEDS: ASPIRIN 325 MG TAB PO SCH (08:57)
[2023-11-06] MEDS: VENLAFAXINE **XR** 75MG CAPSULE PO SCH (08:57)
[2023-11-06] MEDS: SODIUM BICARBONATE 325 MG TAB PO SCH (08:57)
[2023-11-06 08:58] VITALS: BP 134/70
[2023-11-06] MEDS: METOPROLOL TART 25 MG TABLET PO SCH (08:58)
[2023-11-06] MEDS: HEPARIN SOD (PORCINE) 5000UNITS/ML 1ML VIAL/SYRINGE SQ SCH (08:59)
[2023-11-06] MEDS ORDERED: [UNRECOGNIZED DRUG - CODE] IV (09:12)
[2023-11-06] MEDS ORDERED: METO1TAB87 PO (09:12)
[2023-11-06 12:00] VITALS: BP 150/73; TEMP 97.2; O2SAT 94
[2023-11-06] MEDS ORDERED: SODI325T9 PO (12:14)
[2023-11-06 15:40] VITALS: BP 137/76; TEMP 96.3; O2SAT 95
== END 2023-11-06 20:31 | disposition home health service (06) | DRG 698 ==
LOC: M ED 22:02 → M ED INP 23:53 → M ICU 10-24 01:30 → M PCU 10-26 11:14
PROVIDERS: ADMIT Internal Medicine Pulmonary Disease; ATTEND Internal Medicine Pulmonary Disease
PROC: 0TJ98ZZ Inspection of Ureter, Via Natural or Artificial Opening Endoscopic (ICD-10-PCS; 2023-10-25)
PROC: 30233N1 Transfusion of Nonautologous Red Blood Cells into Peripheral Vein, Percutaneous Approach (ICD-10-PCS; principal; 2023-10-25 13:54)
PROC: 02HV33Z Insertion of Infusion Device into Superior Vena Cava, Percutaneous Approach (ICD-10-PCS; 2023-10-29)
PROC: 0T9030Z Drainage of Right Kidney with Drainage Device, Percutaneous Approach (ICD-10-PCS; 2023-11-02)
DX: T83.511A Infection and inflammatory reaction due to indwelling urethral catheter, initial encounter (principal); A41.9 Sepsis, unspecified organism; R65.21 Severe sepsis with septic shock; G93.41 Metabolic encephalopathy; N17.0 Acute kidney failure with tubular necrosis; G82.20 Paraplegia, unspecified; E87.1 Hypo-osmolality and hyponatremia; N13.6 Pyonephrosis; E87.20 Acidosis, unspecified; E46 Unspecified protein-calorie malnutrition; E11.22 Type 2 diabetes mellitus with diabetic chronic kidney disease; E78.5 Hyperlipidemia, unspecified; D63.1 Anemia in chronic kidney disease; L89.151 Pressure ulcer of sacral region, stage 1; B96.1 Klebsiella pneumoniae [K. pneumoniae] as the cause of diseases classified elsewhere; N18.30 Chronic kidney disease, stage 3 unspecified; E87.6 Hypokalemia; E83.42 Hypomagnesemia; K44.9 Diaphragmatic hernia without obstruction or gangrene; N40.0 Benign prostatic hyperplasia without lower urinary tract symptoms; D69.6 Thrombocytopenia, unspecified; I12.9 Hypertensive chronic kidney disease with stage 1 through stage 4 chronic kidney disease, or unspecified chronic kidney disease; F32.A Depression, unspecified; K21.9 Gastro-esophageal reflux disease without esophagitis; N31.9 Neuromuscular dysfunction of bladder, unspecified; Z79.82 Long term (current) use of aspirin; Z79.4 Long term (current) use of insulin; Z79.899 Other long term (current) drug therapy; Z91.040 Latex allergy status; Z88.5 Allergy status to narcotic agent; Z88.6 Allergy status to analgesic agent; Z88.8 Allergy status to other drugs, medicaments and biological substances; Z20.822 Contact with and (suspected) exposure to COVID-19; Z86.73 Personal history of transient ischemic attack (TIA), and cerebral infarction without residual deficits

== ENCOUNTER → 2023-11-07 | Outpatient (REF) | payer MEDICARE, OTHER ==
[~2023-11-07] MED LIST changes: +BAYE325T12 PO; +CEFD300CAP PO; +ELIQ5TAB PO; +FERR325T3 PO; +FLUC100T3 PO; +METO1TAB87 PO; +METO25TA4 PO; +METO50TA7 PO; +ONDA4TAB6 PO; +POTA-298 PO; +PROC1CRE5 TOP; +SENN-130 PO; -SENN1TAB94 PO; +SODI325T9 PO; +[UNRECOGNIZED DRUG - CODE] IV
[2023-11-07 15:32] LABS: BASO # 0.1 10^3/uL (0.0-0.2); BASO % 1.7 % (0.0-1.0); EOS # 0.6 10^3/uL (0.0-0.5); EOS % 9.1 % (0.0-3.0); HEMATOCRIT 23.1 % (42.0-52.0); HEMOGLOBIN 7.1 g/dl (13.5-17.5); LYMPH # 1.8 10^3/uL (1.5-5.0); LYMPH % 27.8 % (24.0-44.0); MEAN CORPUSCULAR HEMOGLOBIN 24.7 pg (27.0-33.0); MEAN CORPUSCULAR HGB CONC 30.7 g/dl (32.0-36.5); MEAN CORPUSCULAR VOLUME 80.2 fl (80.0-96.0); MONO # 0.9 10^3/uL (0.0-0.8); MONO % 13.8 % (2.0-8.0); NEUTROPHILS # 3.1 10^3/uL (1.5-8.5); NEUTROPHILS % 47.4 % (36.0-66.0); PLATELET COUNT, AUTOMATED 189 10^3/uL (150-450); RED BLOOD COUNT 2.88 10^6/uL (4.30-6.10); WHITE BLOOD COUNT 6.5 10^3/uL (4.0-10.0)
[2023-11-07 15:47] LABS: ALKALINE PHOSPHATASE 152 U/L (46-116); ALT/SGPT < 9 U/L (7.0-40); AST/SGOT 13 U/L (<34); BILIRUBIN,TOTAL 0.2 MG/DL (0.3-1.2); BLOOD UREA NITROGEN 38 MG/DL (9-23); CALCIUM LEVEL 7.3 MG/DL (8.3-10.6); CARBON DIOXIDE LEVEL 28 MMOL/L (20-31); CHLORIDE LEVEL 105 MMOL/L (98-107); CREATININE FOR GFR 1.97 MG/DL (0.70-1.30); GLOMERULAR FILTRATION RATE 35.3 (>42); GLUCOSE, FASTING 146 MG/DL (74-106); POTASSIUM SERUM 3.5 MMOL/L (3.5-5.1); SODIUM LEVEL 139 MMOL/L (136-145)
== END ==
LOC: M LAB REF 14:53
PROVIDERS: ATTEND Internal Medicine Infectious Disease
DX: N13.6 Pyonephrosis (principal); T83.511A Infection and inflammatory reaction due to indwelling urethral catheter, initial encounter; Z16.24 Resistance to multiple antibiotics; Y82.9 Unspecified medical devices associated with adverse incidents

== ENCOUNTER → 2023-11-09 | Outpatient (REF) | payer MEDICARE, OTHER ==
[~2023-11-09] MED LIST changes: -CEFD300CAP PO; -ELIQ5TAB PO; -FERR325T3 PO; -FLUC100T3 PO; -METO25TA4 PO; -ONDA4TAB6 PO; -POTA-298 PO; -PROC1CRE5 TOP; -SENN-130 PO; +SENN1TAB94 PO
[2023-11-09 16:06] LABS: HEMATOCRIT 22.8 % (42.0-52.0); MEAN CORPUSCULAR HEMOGLOBIN 25.1 pg (27.0-33.0); MEAN CORPUSCULAR HGB CONC 30.7 g/dl (32.0-36.5); MEAN CORPUSCULAR VOLUME 81.7 fl (80.0-96.0); PLATELET COUNT, AUTOMATED 167 10^3/uL (150-450); RED BLOOD COUNT 2.79 10^6/uL (4.30-6.10); WHITE BLOOD COUNT 6.4 10^3/uL (4.0-10.0)
[2023-11-09 16:17] LABS: ALBUMIN 0.9 G/DL (3.2-5.2); ALKALINE PHOSPHATASE 131 U/L (46-116); ALT/SGPT < 9 U/L (7.0-40); AST/SGOT 10 U/L (<34); BILIRUBIN,TOTAL < 0.2 MG/DL (0.3-1.2); BLOOD UREA NITROGEN 36 MG/DL (9-23); CALCIUM LEVEL 7.6 MG/DL (8.3-10.6); CARBON DIOXIDE LEVEL 27 MMOL/L (20-31); CHLORIDE LEVEL 108 MMOL/L (98-107); CREATININE FOR GFR 2.08 MG/DL (0.70-1.30); GLOMERULAR FILTRATION RATE 33.1 (>42); GLUCOSE, FASTING 172 MG/DL (74-106); POTASSIUM SERUM 3.5 MMOL/L (3.5-5.1); SODIUM LEVEL 140 MMOL/L (136-145); TOTAL PROTEIN 5.1 G/DL (5.7-8.2)
== END ==
LOC: M SHH 15:03
PROVIDERS: ATTEND Internal Medicine
DX: Z51.81 Encounter for therapeutic drug level monitoring (principal)

== ENCOUNTER 2023-11-12 17:40 | Emergency (ER) | payer MEDICARE, BC, OTHER ==
[~2023-11-12] VITALS: Ht 172.7 cm; Wt 67.6 kg
[2023-11-12] MEDS ORDERED: NS 1,000 ML IV ONE (19:45)
[2023-11-12 19:54] LABS: BASO # 0.2 10^3/uL (0.0-0.2); BASO % 2.8 % (0.0-1.0); EOS # 0.8 10^3/uL (0.0-0.5); EOS % 14.6 % (0.0-3.0); HEMATOCRIT 28.9 % (42.0-52.0); HEMOGLOBIN 8.4 g/dl (13.5-17.5); LYMPH # 1.7 10^3/uL (1.5-5.0); LYMPH % 29.2 % (24.0-44.0); MEAN CORPUSCULAR HEMOGLOBIN 24.1 pg (27.0-33.0); MEAN CORPUSCULAR HGB CONC 29.1 g/dl (32.0-36.5); MONO # 0.7 10^3/uL (0.0-0.8); MONO % 11.6 % (2.0-8.0); NEUTROPHILS # 2.4 10^3/uL (1.5-8.5); NEUTROPHILS % 41.6 % (36.0-66.0); PLATELET COUNT, AUTOMATED 246 10^3/uL (150-450); RED BLOOD COUNT 3.48 10^6/uL (4.30-6.10); WHITE BLOOD COUNT 5.7 10^3/uL (4.0-10.0)
[2023-11-12 20:02] LABS: SALICYLATE LEVEL < 3.0 MG/DL (<30)
[2023-11-12 20:03] LABS: ALBUMIN 1.2 G/DL (3.2-5.2); ALKALINE PHOSPHATASE 153 U/L (46-116); ALT/SGPT < 9 U/L (7.0-40); AST/SGOT 17 U/L (<34); BILIRUBIN,DIRECT < 0.1 MG/DL (<0.4); BILIRUBIN,TOTAL 0.2 MG/DL (0.3-1.2); BLOOD UREA NITROGEN 29 MG/DL (9-23); CALCIUM LEVEL 8.1 MG/DL (8.3-10.6); CARBON DIOXIDE LEVEL 27 MMOL/L (20-31); CHLORIDE LEVEL 110 MMOL/L (98-107); CK-MB VALUE MASS 3.1 NG/ML (<3.6); CPK CREATINE PHOSPHOKINASE 24 U/L (46-171); GLOMERULAR FILTRATION RATE 34.7 (>42); GLUCOSE, FASTING 131 MG/DL (74-106); MAGNESIUM LEVEL 1.5 MG/DL (1.8-2.4); MB/CK RELATIVE INDEX 12.91 (< OR =4); PHOSPHORUS LEVEL 3.4 MG/DL (2.4-5.1); POTASSIUM SERUM 3.2 MMOL/L (3.5-5.1); PTH INTACT 32.2 PG/ML (18.5-88.0); SODIUM LEVEL 140 MMOL/L (136-145); TOTAL PROTEIN 6.3 G/DL (5.7-8.2)
[2023-11-12 20:04] LABS: THYROID STIMULATING HORMONE 6.667 uIU/ML (0.55-4.78)
[2023-11-12] MEDS ORDERED: POTASSIUM CHLORIDE 10% LIQ 20MEQ/15ML UDC PO ONE (20:25)
[2023-11-12] MEDS ORDERED: MAG SULF 1GM/100ML (MAG RUN) 1 GM in IV 1 EA IV ONE (20:25)
[2023-11-12 20:28] LABS: VENOUS BASE EXCESS -0.7 (-2.0-2.0); VENOUS HCO3 24.3 MMOL/L (23.0-27.0); VENOUS PARTIAL PRESSURE CO2 41.7 mmHg (38.0-50.0); VENOUS PARTIAL PRESSURE O2 34.4 mmHg (30.0-50.0); VENOUS PH 7.384 UNITS (7.330-7.430); VENOUS STANDARD HCO3 23.4 MMOL/L; VENOUS TOTAL CO2 25.6 MMOL/L (24.0-28.0)
[2023-11-12 23:39] LABS: CK-MB VALUE MASS 3.2 NG/ML (<3.6)
[2023-11-12 23:40] LABS: MB/CK RELATIVE INDEX 12.3 (< OR =4)
[2023-11-13 09:21] VITALS: BP 130/72; TEMP 97; O2SAT 94
== END 2023-11-13 09:27 | disposition home or self-care (01) ==
LOC: EDBD 17:40 → M ED 17:40
DX: M62.81 Muscle weakness (generalized) (principal); E11.9 Type 2 diabetes mellitus without complications; I10 Essential (primary) hypertension; E78.5 Hyperlipidemia, unspecified; K21.9 Gastro-esophageal reflux disease without esophagitis; M54.50 Low back pain, unspecified; Z86.73 Personal history of transient ischemic attack (TIA), and cerebral infarction without residual deficits; Z79.02 Long term (current) use of antithrombotics/antiplatelets; Z79.82 Long term (current) use of aspirin; Z79.891 Long term (current) use of opiate analgesic; Z79.899 Other long term (current) drug therapy; Z88.6 Allergy status to analgesic agent; Z88.5 Allergy status to narcotic agent; Z88.8 Allergy status to other drugs, medicaments and biological substances; Z91.040 Latex allergy status
CPT/HCPCS: 36415; 71045; 80048; 80076; 80143; 81001; 82140; 82550; 82553; 82803; 83605; 83735; 83970; 84100; 84443; 84484; 85025; 87040; 87088; 87486; 87581; 87633; 87798; 93005; 93041; 94760; 96365; 99285; J3475

== ENCOUNTER → 2023-11-27 | Outpatient (REF) | payer MEDICARE, OTHER | LOC: M SMT 17:03 | PROVIDERS: ATTEND Urology | DX: N13.30 Unspecified hydronephrosis (principal); Z79.899 Other long term (current) drug therapy ==

== ENCOUNTER 2024-01-24 11:49 | Inpatient (IN) | payer MEDICARE, BC ==
[~2024-01-24] VITALS: Ht 172.7 cm; Wt 67.0 kg
[~2024-01-24 11:49] MED LIST changes: +SENN-130 PO; -SENN1TAB94 PO
[2024-01-24] MEDS: NS 1,000 ML IV ONE (12:25)
[2024-01-24 12:47] LABS: BASO # 0.1 10^3/uL (0.0-0.2); BASO % 0.4 % (0.0-1.0); EOS # 0.1 10^3/uL (0.0-0.5); EOS % 0.6 % (0.0-3.0); HEMATOCRIT 34.1 % (42.0-52.0); HEMOGLOBIN 10.7 g/dl (13.5-17.5); LYMPH # 1.8 10^3/uL (1.5-5.0); LYMPH % 11.3 % (24.0-44.0); MEAN CORPUSCULAR HEMOGLOBIN 28.9 pg (27.0-33.0); MEAN CORPUSCULAR HGB CONC 31.4 g/dl (32.0-36.5); MEAN CORPUSCULAR VOLUME 92.2 fl (80.0-96.0); MONO # 1.3 10^3/uL (0.0-0.8); MONO % 8.2 % (2.0-8.0); NEUTROPHILS # 12.5 10^3/uL (1.5-8.5); NEUTROPHILS % 79.1 % (36.0-66.0); PLATELET COUNT, AUTOMATED 289 10^3/uL (150-450); WHITE BLOOD COUNT 15.8 10^3/uL (4.0-10.0)
[2024-01-24 13:02] LABS: VENOUS BASE EXCESS -10.7 (-2.0-2.0); VENOUS HCO3 15.2 MMOL/L (23.0-27.0); VENOUS O2 SATURATION 92.9 % (60.0-80.0); VENOUS PARTIAL PRESSURE CO2 33.3 mmHg (38.0-50.0); VENOUS PARTIAL PRESSURE O2 72.5 mmHg (30.0-50.0); VENOUS PH 7.276 UNITS (7.330-7.430); VENOUS STANDARD HCO3 15.8 MMOL/L; VENOUS TOTAL CO2 16.2 MMOL/L (24.0-28.0)
[2024-01-24 13:11] LABS: CK-MB VALUE MASS < 1.0 NG/ML (<3.6)
[2024-01-24 13:13] LABS: ALBUMIN 2.1 G/DL (3.2-5.2); ALKALINE PHOSPHATASE 139 U/L (46-116); ALT/SGPT 12 U/L (7.0-40); AST/SGOT 11 U/L (<34); BILIRUBIN,DIRECT < 0.1 MG/DL (<0.4); BILIRUBIN,TOTAL 0.3 MG/DL (0.3-1.2); BLOOD UREA NITROGEN 31 MG/DL (9-23); CARBON DIOXIDE LEVEL 22 MMOL/L (20-31); CHLORIDE LEVEL 114 MMOL/L (98-107); CREATININE FOR GFR 1.73 MG/DL (0.70-1.30); GLUCOSE, FASTING 211 MG/DL (74-106); POTASSIUM SERUM 5.7 MMOL/L (3.5-5.1); SODIUM LEVEL 142 MMOL/L (136-145); TOTAL PROTEIN 6.4 G/DL (5.7-8.2)
[2024-01-24 13:14] LABS: THYROID STIMULATING HORMONE 1.031 uIU/ML (0.55-4.78)
[2024-01-24 13:17] LABS: CPK CREATINE PHOSPHOKINASE 43 U/L (46-171); MB/CK RELATIVE INDEX 2.32 (< OR =4)
[2024-01-24] MEDS: PATIROMER SORBITEX CALCIUM 8.4 GM POWDER PACKET (VELTASSA) PO ONE (13:20)
[2024-01-24] MEDS: VANCOMYCIN HCL 1,000 MG, VIAL MATE ADAPTER 1 EACH in D5W 250 ML IV ONE (13:36)
[2024-01-24] MEDS: PIPERACILLIN/TAZOBACTAM SOD 4.5 GM in D5W MINI-BAG PLUS 50 ML IV ONE (14:55)
[2024-01-24] MEDS: SODIUM CHLORIDE 0.9% 1000ML IV ONE (15:00)
[2024-01-24] MEDS: ALBUTEROL SULFATE 2.5MG/0.5ML INH NEB SOLN NEB ONE (15:00)
[2024-01-24] MEDS ORDERED: GLUCOSE 4GM CHEW TABLET PO PRN (15:10)
[2024-01-24] MEDS ORDERED: GLUCAGON INJ 1MG VIAL SC PRN (15:10)
[2024-01-24] MEDS ORDERED: DEXTROSE 50% 50ML SYRINGE IV PRN (15:10)
[2024-01-24 15:16] LABS: PROCALCITONIN 0.35 ng/ml
[2024-01-24] MEDS: CALCIUM GLUCONATE 1,000 MG in D5W MINI-BAG PLUS 100 ML IV ONE (15:23)
[2024-01-24] MEDS ORDERED: POTA-298 PO (15:27)
[2024-01-24] MEDS ORDERED: ONDA4TAB6 PO (15:27)
[2024-01-24] MEDS ORDERED: MAGN64TASA PO (15:27)
[2024-01-24] MEDS ORDERED: METO25TA4 PO (15:27)
[2024-01-24] MEDS ORDERED: FERR325T3 PO (15:27)
[2024-01-24] MEDS ORDERED: HOME MED LIST COMPLETE! XX SCH (15:30)
[2024-01-24 16:20] VITALS: BP 127/75; TEMP 97.9; O2SAT 95
[2024-01-24] MEDS: D5W IV SCH (16:49)
[2024-01-24] MEDS: AVIBACTAM IV SCH (16:49)
[2024-01-24] MEDS: CEFTAZIDIME IV SCH (16:49)
[2024-01-24] MEDS: INSULIN LISPRO (NovoLOG) PER UNIT SC SCH (18:00)
[2024-01-24] MEDS: NS 1,000 ML IV SCH (18:19)
[2024-01-24 18:40] LABS: CREATININE FOR GFR 1.64 MG/DL (0.70-1.30); GLOMERULAR FILTRATION RATE 43.6 (>42); POTASSIUM SERUM 4.8 MMOL/L (3.5-5.1)
[2024-01-24 22:00] VITALS: BP 123/97; TEMP 99.9; O2SAT 94
[2024-01-24] MEDS: HEPARIN SOD (PORCINE) 5000UNITS/ML 1ML VIAL/SYRINGE SC SCH (22:36)
[2024-01-24] MEDS: VANICREAM MOISTURIZING SKIN CREAM 113GM TUBE TOP SCH (22:37)
[2024-01-25 04:10] VITALS: TEMP 100.4
[2024-01-25] MEDS: ACETAMINOPHEN *IV* 1,000 MG in IV 1 EA IV ONE (04:52)
[2024-01-25 06:00] VITALS: BP 112/75; TEMP 99.4; O2SAT 95
[2024-01-25 06:55] LABS: PROCALCITONIN 0.27 ng/ml
[2024-01-25 07:00] LABS: BLOOD UREA NITROGEN 23 MG/DL (9-23); CALCIUM LEVEL 6.4 MG/DL (8.3-10.6); CARBON DIOXIDE LEVEL 14 MMOL/L (20-31); CHLORIDE LEVEL 94 MMOL/L (98-107); CREATININE FOR GFR 1.06 MG/DL (0.70-1.30); GLOMERULAR FILTRATION RATE > 60.0 (>42); GLUCOSE, FASTING 98 MG/DL (74-106); POTASSIUM SERUM 3.4 MMOL/L (3.5-5.1); SODIUM LEVEL 119 MMOL/L (136-145)
[2024-01-25 07:52] LABS: HEMATOCRIT 29.3 % (42.0-52.0); HEMOGLOBIN 9.1 g/dl (13.5-17.5); MEAN CORPUSCULAR HEMOGLOBIN 28.9 pg (27.0-33.0); MEAN CORPUSCULAR HGB CONC 31.1 g/dl (32.0-36.5); PLATELET COUNT, AUTOMATED 260 10^3/uL (150-450); RED BLOOD COUNT 3.15 10^6/uL (4.30-6.10); WHITE BLOOD COUNT 14.3 10^3/uL (4.0-10.0)
[2024-01-25 08:04] LABS: CALCIUM LEVEL 9.1 MG/DL (8.3-10.6); CREATININE FOR GFR 1.57 MG/DL (0.70-1.30); GLOMERULAR FILTRATION RATE 45.8 (>42); MAGNESIUM LEVEL 1.3 MG/DL (1.8-2.4); POTASSIUM SERUM 4.5 MMOL/L (3.5-5.1)
[2024-01-25] MEDS: MAG SULF 1GM/100ML (MAG RUN) 1 GM in IV 1 EA IV ONE (09:34)
[2024-01-25 14:00] VITALS: BP 123/76; TEMP 97.2; O2SAT 99
[2024-01-25] MEDS: FLUCONAZOLE 100 MG TAB PO SCH (14:19)
[2024-01-25] MEDS: ANUSOL HC CREAM 30GM TOP SCH (15:12)
[2024-01-25] MEDS: MAG SULF 1GM/100ML (MAG RUN) 1 GM in IV 1 EA IV SCH (15:12)
[2024-01-25] MEDS: LACTIC ACID 12% LOTION 225 GM BTL EXT SCH (15:12)
[2024-01-25 20:42] VITALS: BP 126/75; TEMP 97.9; O2SAT 99
[2024-01-25] MEDS: INSULIN LISPRO (NovoLOG) PER UNIT SC SCH (21:00)
[2024-01-25] MEDS ORDERED: **hydrALAZINE** 10 MG TAB PO ONE (23:50)
[2024-01-26 05:12] VITALS: BP 142/78; TEMP 98.4; O2SAT 97
[2024-01-26 06:07] LABS: HEMOGLOBIN 8.8 g/dl (13.5-17.5); MEAN CORPUSCULAR HEMOGLOBIN 29.2 pg (27.0-33.0); MEAN CORPUSCULAR HGB CONC 32.6 g/dl (32.0-36.5); MEAN CORPUSCULAR VOLUME 89.7 fl (80.0-96.0); PLATELET COUNT, AUTOMATED 300 10^3/uL (150-450); RED BLOOD COUNT 3.01 10^6/uL (4.30-6.10)
[2024-01-26 06:43] LABS: C REACTIVE PROTEIN QUANTITATIV 19.8 MG/DL (<1.0)
[2024-01-26 06:44] LABS: ALBUMIN 1.7 G/DL (3.2-5.2); CALCIUM LEVEL 9.1 MG/DL (8.3-10.6); CREATININE FOR GFR 1.41 MG/DL (0.70-1.30); GLOMERULAR FILTRATION RATE 51.9 (>42); PHOSPHORUS LEVEL 3.3 MG/DL (2.4-5.1); POTASSIUM SERUM 4.1 MMOL/L (3.5-5.1)
[2024-01-26] MEDS: INSULIN LISPRO (NovoLOG) PER UNIT SC SCH (07:30)
[2024-01-26 14:00] VITALS: BP 143/81; TEMP 98.6; O2SAT 100
[2024-01-26] MEDS ORDERED: ISOVUE-300 61% 100ML VIAL As Ordered ONE (14:38)
[2024-01-26] MEDS ORDERED: LIDOCAINE 1% MDV 20ML VIAL As Ordered ONE (14:38)
[2024-01-26] MEDS: ACETAMINOPHEN TAB 650MG DOSE (2X325MG) PO PRN (18:06)
[2024-01-26 20:17] VITALS: BP 148/76; TEMP 97.9; O2SAT 100
[2024-01-26] MEDS: CEFDINIR 300 MG CAP (OMNICEF) PO SCH (21:00)
[2024-01-27 05:02] VITALS: BP 122/62; TEMP 97.2; O2SAT 95
[2024-01-27 06:23] LABS: HEMATOCRIT 26.5 % (42.0-52.0); HEMOGLOBIN 8.4 g/dl (13.5-17.5); MEAN CORPUSCULAR HEMOGLOBIN 28.9 pg (27.0-33.0); MEAN CORPUSCULAR HGB CONC 31.7 g/dl (32.0-36.5); MEAN CORPUSCULAR VOLUME 91.1 fl (80.0-96.0); PLATELET COUNT, AUTOMATED 286 10^3/uL (150-450); RED BLOOD COUNT 2.91 10^6/uL (4.30-6.10); WHITE BLOOD COUNT 6.5 10^3/uL (4.0-10.0)
[2024-01-27 06:39] LABS: ALBUMIN 1.6 G/DL (3.2-5.2); CALCIUM LEVEL 8.8 MG/DL (8.3-10.6); CREATININE FOR GFR 1.3 MG/DL (0.70-1.30); MAGNESIUM LEVEL 1.8 MG/DL (1.8-2.4); PHOSPHORUS LEVEL 3.3 MG/DL (2.4-5.1)
[2024-01-27 08:58] VITALS: BP 150/91
[2024-01-27] MEDS: METOPROLOL TART 25 MG TABLET PO SCH (08:58)
[2024-01-27] MEDS ORDERED: CEFD300CAP PO (09:08)
[2024-01-27] MEDS ORDERED: FLUC100T3 PO (09:08)
[2024-01-27] MEDS ORDERED: PROC1CRE5 TOP (09:08)
[2024-01-27] MEDS: MAG SULF 1GM/100ML (MAG RUN) 1 GM in IV 1 EA IV SCH (09:34)
[2024-01-27] MEDS: DIGOXIN INJ 0.5 MG/2 ML AMP IV ONE (09:34)
[2024-01-27] MEDS ORDERED: ELIQ5TAB PO (10:27)
[2024-01-27] MEDS: APIXABAN 5 MG TAB (ELIQUIS) PO SCH (11:03)
== END 2024-01-27 13:27 | disposition home health service (06) | DRG 698 ==
LOC: EDBD 11:49 → M ED 11:49 → M ED INP 14:32 → M MSPAV 16:17
PROVIDERS: ADMIT Internal Medicine; ATTEND Internal Medicine
PROC: 0T25X0Z Change Drainage Device in Kidney, External Approach (ICD-10-PCS; principal; 2024-01-26 15:00)
DX: T83.511A Infection and inflammatory reaction due to indwelling urethral catheter, initial encounter (principal); G93.41 Metabolic encephalopathy; G82.20 Paraplegia, unspecified; N17.9 Acute kidney failure, unspecified; N31.9 Neuromuscular dysfunction of bladder, unspecified; N18.30 Chronic kidney disease, stage 3 unspecified; E11.22 Type 2 diabetes mellitus with diabetic chronic kidney disease; K21.9 Gastro-esophageal reflux disease without esophagitis; D63.1 Anemia in chronic kidney disease; I12.9 Hypertensive chronic kidney disease with stage 1 through stage 4 chronic kidney disease, or unspecified chronic kidney disease; I48.0 Paroxysmal atrial fibrillation; K44.9 Diaphragmatic hernia without obstruction or gangrene; B37.9 Candidiasis, unspecified; B96.4 Proteus (mirabilis) (morganii) as the cause of diseases classified elsewhere; L89.151 Pressure ulcer of sacral region, stage 1; F32.A Depression, unspecified; N39.0 Urinary tract infection, site not specified; E87.5 Hyperkalemia; Z79.82 Long term (current) use of aspirin; Z79.4 Long term (current) use of insulin; Z79.899 Other long term (current) drug therapy; Z88.5 Allergy status to narcotic agent; Z88.6 Allergy status to analgesic agent; Z88.8 Allergy status to other drugs, medicaments and biological substances; Z91.040 Latex allergy status; Z86.73 Personal history of transient ischemic attack (TIA), and cerebral infarction without residual deficits

== ENCOUNTER 2024-02-10 17:27 | Inpatient (IN) | payer MEDICARE, BC ==
[~2024-02-10] VITALS: Ht 172.7 cm; Wt 57.1 kg
[~2024-02-10 17:27] MED LIST changes: +CEFD300CAP PO; +ELIQ5TAB PO; +FERR325T3 PO; +FLUC100T3 PO; +METO25TA4 PO; +ONDA4TAB6 PO; +POTA-298 PO; +PROC1CRE5 TOP
[2024-02-10 18:23] LABS: BASO # 0.1 10^3/uL (0.0-0.2); EOS # 0.3 10^3/uL (0.0-0.5); EOS % 2.1 % (0.0-3.0); HEMATOCRIT 34.6 % (42.0-52.0); HEMOGLOBIN 10.6 g/dl (13.5-17.5); LYMPH # 1.3 10^3/uL (1.5-5.0); LYMPH % 11.1 % (24.0-44.0); MEAN CORPUSCULAR HEMOGLOBIN 28.9 pg (27.0-33.0); MEAN CORPUSCULAR HGB CONC 30.6 g/dl (32.0-36.5); MEAN CORPUSCULAR VOLUME 94.3 fl (80.0-96.0); MONO # 0.9 10^3/uL (0.0-0.8); MONO % 7.1 % (2.0-8.0); NEUTROPHILS # 9.5 10^3/uL (1.5-8.5); NEUTROPHILS % 78.1 % (36.0-66.0); PLATELET COUNT, AUTOMATED 331 10^3/uL (150-450); RED BLOOD COUNT 3.67 10^6/uL (4.30-6.10); WHITE BLOOD COUNT 12.1 10^3/uL (4.0-10.0)
[2024-02-10 18:49] LABS: ALBUMIN 2.2 G/DL (3.2-5.2); ALKALINE PHOSPHATASE 115 U/L (46-116); ALT/SGPT 27 U/L (7.0-40); AST/SGOT 57 U/L (<34); BILIRUBIN,DIRECT < 0.1 MG/DL (<0.4); BILIRUBIN,TOTAL 0.2 MG/DL (0.3-1.2); BLOOD UREA NITROGEN 32 MG/DL (9-23); CALCIUM LEVEL 9.5 MG/DL (8.3-10.6); CARBON DIOXIDE LEVEL 23 MMOL/L (20-31); CHLORIDE LEVEL 114 MMOL/L (98-107); CREATININE FOR GFR 1.97 MG/DL (0.70-1.30); GLOMERULAR FILTRATION RATE 35.3 (>42); GLUCOSE, FASTING 207 MG/DL (74-106); SODIUM LEVEL 145 MMOL/L (136-145); TOTAL PROTEIN 6.1 G/DL (5.7-8.2)
[2024-02-10 18:51] LABS: THYROID STIMULATING HORMONE 3.491 uIU/ML (0.55-4.78)
[2024-02-10] MEDS: NS 500 ML IV ONE (19:02)
[2024-02-10] MEDS: NS 1,000 ML IV SCH (20:06)
[2024-02-10] MEDS: INSULIN LISPRO (NovoLOG) PER UNIT SC SCH (21:00)
[2024-02-10] MEDS ORDERED: ELIQ5TAB PO (21:10)
[2024-02-10] MEDS ORDERED: ANUS2.5C2 TOP (21:19)
[2024-02-10] MEDS ORDERED: HOME MED LIST COMPLETE! XX SCH (21:20)
[2024-02-10] MEDS ORDERED: ACETAMINOPHEN TAB 650MG DOSE (2X325MG) PO PRN (21:40)
[2024-02-10] MEDS: cefTRIAXone SOD 1 GM in D5W MINI-BAG PLUS 50 ML IV ONE (21:44)
[2024-02-10] MEDS ORDERED: GLUCAGON INJ 1MG VIAL SC PRN (22:00)
[2024-02-10] MEDS ORDERED: GLUCOSE 4 GM CHEW PO PRN (22:00)
[2024-02-10 22:57] LABS: INR 1.65; PARTIAL THROMBOPLASTIN TIME 37.9 SECONDS (24.8-34.2)
[2024-02-10 23:09] LABS: CALCIUM LEVEL 8.9 MG/DL (8.3-10.6); CREATININE FOR GFR 1.95 MG/DL (0.70-1.30); GLOMERULAR FILTRATION RATE 35.7 (>42); MAGNESIUM LEVEL 1.5 MG/DL (1.8-2.4); POTASSIUM SERUM 5.5 MMOL/L (3.5-5.1)
[2024-02-10 23:46] LABS: PROCALCITONIN 0.17 ng/ml
[2024-02-11] MEDS: PATIROMER SORBITEX CALCIUM 8.4 GM POWDER PACKET (VELTASSA) PO ONE (00:17)
[2024-02-11] MEDS: NS 1,000 ML IV SCH (00:20)
[2024-02-11 03:52] VITALS: BP 120/78; TEMP 98.2; O2SAT 100
[2024-02-11] MEDS: LR 1,000 ML IV SCH (05:21)
[2024-02-11 06:28] LABS: HEMATOCRIT 30.6 % (42.0-52.0); HEMOGLOBIN 9.6 g/dl (13.5-17.5); MEAN CORPUSCULAR HEMOGLOBIN 29.1 pg (27.0-33.0); MEAN CORPUSCULAR HGB CONC 31.4 g/dl (32.0-36.5); MEAN CORPUSCULAR VOLUME 92.7 fl (80.0-96.0); PLATELET COUNT, AUTOMATED 281 10^3/uL (150-450); WHITE BLOOD COUNT 8.4 10^3/uL (4.0-10.0)
[2024-02-11 07:26] LABS: PROCALCITONIN 0.25 ng/ml
[2024-02-11 07:27] LABS: ALBUMIN 2.2 G/DL (3.2-5.2); BILIRUBIN,TOTAL 0.2 MG/DL (0.3-1.2); CALCIUM LEVEL 9.4 MG/DL (8.3-10.6); CREATININE FOR GFR 1.87 MG/DL (0.70-1.30); GLOMERULAR FILTRATION RATE 37.5 (>42); MAGNESIUM LEVEL 1.5 MG/DL (1.8-2.4); POTASSIUM SERUM 5.1 MMOL/L (3.5-5.1); TOTAL PROTEIN 5.7 G/DL (5.7-8.2)
[2024-02-11] MEDS: GABAPENTIN 100 MG CAP PO SCH (08:43)
[2024-02-11] MEDS: VENLAFAXINE **XR** 75MG CAPSULE PO SCH (08:43)
[2024-02-11] MEDS: INSULIN LISPRO (NovoLOG) PER UNIT SC SCH (08:43)
[2024-02-11] MEDS: APIXABAN 5 MG TAB (ELIQUIS) PO SCH (08:44)
[2024-02-11] MEDS: DOCUSATE SODIUM 100MG CAPSULE PO SCH (08:44)
[2024-02-11 09:03] VITALS: BP 129/89; TEMP 98.2; O2SAT 99
[2024-02-11] MEDS: ANUSOL HC CREAM 30GM TOP SCH (14:35)
[2024-02-11] MEDS: MAG SULF 1GM/100ML (MAG RUN) 1 GM in IV 1 EA IV SCH (17:40)
[2024-02-11 18:05] VITALS: BP 139/63; TEMP 98.3; O2SAT 97
[2024-02-11 19:49] VITALS: BP 126/75; TEMP 97.8; O2SAT 98
[2024-02-11] MEDS: PANTOPRAZOLE 40MG TAB (PROTONIX) PO SCH (20:51)
[2024-02-11] MEDS: cefTRIAXone SOD 1 GM in D5W MINI-BAG PLUS 50 ML IV SCH (22:21)
[2024-02-11 22:48] VITALS: BP 126/75; TEMP 97.8; O2SAT 98
[2024-02-12] VITALS (26 sets, daily range): BP systolic 118–172; BP diastolic 68–109; TEMP 97.2–98.9; O2SAT 96–100
[2024-02-12 11:14] LABS: BASO # 0.1 10^3/uL (0.0-0.2); BASO % 0.5 % (0.0-1.0); EOS # 0.4 10^3/uL (0.0-0.5); EOS % 3.7 % (0.0-3.0); HEMATOCRIT 28.6 % (42.0-52.0); HEMOGLOBIN 9.2 g/dl (13.5-17.5); LYMPH # 1.4 10^3/uL (1.5-5.0); LYMPH % 11.9 % (24.0-44.0); MEAN CORPUSCULAR HEMOGLOBIN 29.4 pg (27.0-33.0); MEAN CORPUSCULAR HGB CONC 32.2 g/dl (32.0-36.5); MEAN CORPUSCULAR VOLUME 91.4 fl (80.0-96.0); MONO % 8.9 % (2.0-8.0); NEUTROPHILS # 8.6 10^3/uL (1.5-8.5); NEUTROPHILS % 74.7 % (36.0-66.0); PLATELET COUNT, AUTOMATED 233 10^3/uL (150-450); RED BLOOD COUNT 3.13 10^6/uL (4.30-6.10); WHITE BLOOD COUNT 11.5 10^3/uL (4.0-10.0)
[2024-02-12] MEDS: METOPROLOL 5 MG/5 ML VIAL IV STA (11:26)
[2024-02-12] MEDS: MEROPENEM INJ 1 GM in IV 1 EA IV SCH (11:47)
[2024-02-12 11:51] LABS: CALCIUM LEVEL 9.5 MG/DL (8.3-10.6); CREATININE FOR GFR 1.52 MG/DL (0.70-1.30); GLOMERULAR FILTRATION RATE 47.6 (>42); MAGNESIUM LEVEL 1.7 MG/DL (1.8-2.4); POTASSIUM SERUM 5.2 MMOL/L (3.5-5.1)
[2024-02-12] MEDS: METOPROLOL TART 25 MG TABLET PO SCH (13:44)
[2024-02-12] MEDS: MAG SULF 1GM/100ML (MAG RUN) 1 GM in IV 1 EA IV ONE (14:52)
[2024-02-13] VITALS (21 sets, daily range): BP systolic 120–166; BP diastolic 58–90; TEMP 97–98.6; O2SAT 95–99
[2024-02-13 07:17] LABS: BASO # 0.1 10^3/uL (0.0-0.2); BASO % 0.8 % (0.0-1.0); EOS # 0.4 10^3/uL (0.0-0.5); EOS % 3.9 % (0.0-3.0); HEMOGLOBIN 10.5 g/dl (13.5-17.5); LYMPH # 1.8 10^3/uL (1.5-5.0); LYMPH % 18.9 % (24.0-44.0); MEAN CORPUSCULAR HEMOGLOBIN 28.8 pg (27.0-33.0); MEAN CORPUSCULAR HGB CONC 30.9 g/dl (32.0-36.5); MEAN CORPUSCULAR VOLUME 93.4 fl (80.0-96.0); MONO # 0.8 10^3/uL (0.0-0.8); MONO % 8.8 % (2.0-8.0); NEUTROPHILS # 6.4 10^3/uL (1.5-8.5); NEUTROPHILS % 67.2 % (36.0-66.0); PLATELET COUNT, AUTOMATED 244 10^3/uL (150-450); RED BLOOD COUNT 3.64 10^6/uL (4.30-6.10); WHITE BLOOD COUNT 9.6 10^3/uL (4.0-10.0)
[2024-02-13 07:36] LABS: CALCIUM LEVEL 9.7 MG/DL (8.3-10.6); CREATININE FOR GFR 1.36 MG/DL (0.70-1.30); GLOMERULAR FILTRATION RATE 54.1 (>42); MAGNESIUM LEVEL 1.9 MG/DL (1.8-2.4); POTASSIUM SERUM 4.8 MMOL/L (3.5-5.1)
[2024-02-13] MEDS: DEXTROSE 50% 50ML SYRINGE IV PRN (13:09)
[2024-02-14] VITALS (17 sets, daily range): BP systolic 119–154; BP diastolic 65–79; TEMP 97.4–98.1; O2SAT 96–98
[2024-02-14 07:20] LABS: BASO % 0.5 % (0.0-1.0); EOS # 0.4 10^3/uL (0.0-0.5); EOS % 5.6 % (0.0-3.0); HEMATOCRIT 32.1 % (42.0-52.0); HEMOGLOBIN 10.3 g/dl (13.5-17.5); LYMPH # 1.6 10^3/uL (1.5-5.0); LYMPH % 21.1 % (24.0-44.0); MEAN CORPUSCULAR HEMOGLOBIN 29.8 pg (27.0-33.0); MEAN CORPUSCULAR HGB CONC 32.1 g/dl (32.0-36.5); MEAN CORPUSCULAR VOLUME 92.8 fl (80.0-96.0); MONO # 0.9 10^3/uL (0.0-0.8); MONO % 11.6 % (2.0-8.0); NEUTROPHILS # 4.7 10^3/uL (1.5-8.5); NEUTROPHILS % 60.7 % (36.0-66.0); PLATELET COUNT, AUTOMATED 259 10^3/uL (150-450); RED BLOOD COUNT 3.46 10^6/uL (4.30-6.10); WHITE BLOOD COUNT 7.8 10^3/uL (4.0-10.0)
[2024-02-14 07:42] LABS: CALCIUM LEVEL 9.2 MG/DL (8.3-10.6); CREATININE FOR GFR 1.27 MG/DL (0.70-1.30); GLOMERULAR FILTRATION RATE 58.5 (>42); MAGNESIUM LEVEL 1.6 MG/DL (1.8-2.4); POTASSIUM SERUM 4.8 MMOL/L (3.5-5.1)
[2024-02-14] MEDS: FOLIC ACID 1MG TAB PO SCH (08:31)
[2024-02-14] MEDS: ANUSOL HC CREAM 30GM TOP SCH (08:32)
[2024-02-14 21:31] LABS: CREATININE FOR GFR 1.34 MG/DL (0.70-1.30); POTASSIUM SERUM 5.3 MMOL/L (3.5-5.1)
[2024-02-14] MEDS: ATORVASTATIN 20 MG TAB PO SCH (21:42)
[2024-02-15] VITALS (7 sets, daily range): BP systolic 128–154; BP diastolic 80–94; TEMP 97.3–97.6; O2SAT 97–99
[2024-02-15 06:17] LABS: BASO % 0.4 % (0.0-1.0); EOS # 0.4 10^3/uL (0.0-0.5); EOS % 6.2 % (0.0-3.0); HEMATOCRIT 34.1 % (42.0-52.0); HEMOGLOBIN 10.8 g/dl (13.5-17.5); LYMPH # 1.8 10^3/uL (1.5-5.0); LYMPH % 27.2 % (24.0-44.0); MEAN CORPUSCULAR HEMOGLOBIN 29.2 pg (27.0-33.0); MEAN CORPUSCULAR HGB CONC 31.7 g/dl (32.0-36.5); MEAN CORPUSCULAR VOLUME 92.2 fl (80.0-96.0); MONO # 0.9 10^3/uL (0.0-0.8); MONO % 12.6 % (2.0-8.0); NEUTROPHILS # 3.6 10^3/uL (1.5-8.5); NEUTROPHILS % 53.3 % (36.0-66.0); PLATELET COUNT, AUTOMATED 296 10^3/uL (150-450); WHITE BLOOD COUNT 6.7 10^3/uL (4.0-10.0)
[2024-02-15 06:40] LABS: CALCIUM LEVEL 9.2 MG/DL (8.3-10.6); CREATININE FOR GFR 1.28 MG/DL (0.70-1.30); MAGNESIUM LEVEL 1.6 MG/DL (1.8-2.4); POTASSIUM SERUM 4.7 MMOL/L (3.5-5.1)
[2024-02-15] MEDS: MAG SULF 1GM/100ML (MAG RUN) 1 GM in IV 1 EA IV SCH (06:55)
[2024-02-15] MEDS: FERROUS SULFATE 325MG TAB PO SCH (08:10)
[2024-02-15] MEDS: CETIRIZINE (ZyrTEC) 10 MG TAB PO SCH (21:01)
[2024-02-16 06:53] VITALS: BP 139/81; TEMP 97.9; O2SAT 96
[2024-02-16 07:20] LABS: BASO % 0.4 % (0.0-1.0); EOS # 0.4 10^3/uL (0.0-0.5); EOS % 4.4 % (0.0-3.0); HEMOGLOBIN 9.9 g/dl (13.5-17.5); LYMPH # 1.8 10^3/uL (1.5-5.0); LYMPH % 18.8 % (24.0-44.0); MEAN CORPUSCULAR HEMOGLOBIN 29.6 pg (27.0-33.0); MEAN CORPUSCULAR HGB CONC 31.9 g/dl (32.0-36.5); MEAN CORPUSCULAR VOLUME 92.5 fl (80.0-96.0); MONO # 0.9 10^3/uL (0.0-0.8); MONO % 9.1 % (2.0-8.0); NEUTROPHILS # 6.2 10^3/uL (1.5-8.5); NEUTROPHILS % 67.1 % (36.0-66.0); PLATELET COUNT, AUTOMATED 257 10^3/uL (150-450); RED BLOOD COUNT 3.35 10^6/uL (4.30-6.10); WHITE BLOOD COUNT 9.3 10^3/uL (4.0-10.0)
[2024-02-16 08:00] VITALS: BP 139/80; TEMP 97.7
[2024-02-16 08:04] LABS: C REACTIVE PROTEIN QUANTITATIV 12.1 MG/DL (<1.0); CALCIUM LEVEL 9.6 MG/DL (8.3-10.6); CREATININE FOR GFR 1.34 MG/DL (0.70-1.30); MAGNESIUM LEVEL 1.9 MG/DL (1.8-2.4); POTASSIUM SERUM 4.6 MMOL/L (3.5-5.1)
[2024-02-16] MEDS: TRIAMCINOLONE ACET 0.1% CREAM 80GM EXT SCH (10:13)
[2024-02-16] MEDS: NS 1,000 ML IV ONE (13:38)
[2024-02-16 15:36] VITALS: BP 159/86; TEMP 97.7; O2SAT 97
[2024-02-16 21:32] VITALS: BP 170/97; TEMP 97.9; O2SAT 95
[2024-02-17 07:11] LABS: BASO % 0.3 % (0.0-1.0); EOS # 0.2 10^3/uL (0.0-0.5); HEMATOCRIT 28.2 % (42.0-52.0); HEMOGLOBIN 8.9 g/dl (13.5-17.5); LYMPH # 1.6 10^3/uL (1.5-5.0); LYMPH % 19.9 % (24.0-44.0); MEAN CORPUSCULAR HGB CONC 31.6 g/dl (32.0-36.5); MEAN CORPUSCULAR VOLUME 91.9 fl (80.0-96.0); MONO # 0.6 10^3/uL (0.0-0.8); MONO % 7.3 % (2.0-8.0); NEUTROPHILS # 5.6 10^3/uL (1.5-8.5); NEUTROPHILS % 70.4 % (36.0-66.0); PLATELET COUNT, AUTOMATED 220 10^3/uL (150-450); RED BLOOD COUNT 3.07 10^6/uL (4.30-6.10); WHITE BLOOD COUNT 7.9 10^3/uL (4.0-10.0)
[2024-02-17 07:17] VITALS: BP 129/70; TEMP 97.5; O2SAT 96
[2024-02-17 07:25] LABS: CALCIUM LEVEL 8.8 MG/DL (8.3-10.6); CREATININE FOR GFR 1.3 MG/DL (0.70-1.30); MAGNESIUM LEVEL 1.7 MG/DL (1.8-2.4); POTASSIUM SERUM 4.4 MMOL/L (3.5-5.1)
[2024-02-17 15:04] VITALS: BP 130/70; TEMP 97.9; O2SAT 96
[2024-02-17] MEDS: MAG SULF 1GM/100ML (MAG RUN) 1 GM in IV 1 EA IV ONE (19:36)
[2024-02-17 21:00] VITALS: BP 124/72; TEMP 98.1; O2SAT 96
[2024-02-18 05:51] LABS: BASO % 0.2 % (0.0-1.0); EOS # 0.3 10^3/uL (0.0-0.5); EOS % 5.9 % (0.0-3.0); HEMATOCRIT 29.1 % (42.0-52.0); HEMOGLOBIN 9.3 g/dl (13.5-17.5); LYMPH # 1.8 10^3/uL (1.5-5.0); LYMPH % 34.7 % (24.0-44.0); MEAN CORPUSCULAR HEMOGLOBIN 28.7 pg (27.0-33.0); MEAN CORPUSCULAR VOLUME 89.8 fl (80.0-96.0); MONO # 0.5 10^3/uL (0.0-0.8); NEUTROPHILS # 2.6 10^3/uL (1.5-8.5); PLATELET COUNT, AUTOMATED 220 10^3/uL (150-450); RED BLOOD COUNT 3.24 10^6/uL (4.30-6.10); WHITE BLOOD COUNT 5.2 10^3/uL (4.0-10.0)
[2024-02-18 06:10] VITALS: BP 136/73; TEMP 97.3; O2SAT 94
[2024-02-18 06:32] LABS: CALCIUM LEVEL 8.6 MG/DL (8.3-10.6); CREATININE FOR GFR 1.29 MG/DL (0.70-1.30); GLOMERULAR FILTRATION RATE 57.5 (>42); MAGNESIUM LEVEL 1.8 MG/DL (1.8-2.4); POTASSIUM SERUM 4.5 MMOL/L (3.5-5.1)
[2024-02-18 07:33] LABS: C REACTIVE PROTEIN QUANTITATIV 9.9 MG/DL (<1.0)
[2024-02-18 14:16] VITALS: BP 134/75; TEMP 97.9; O2SAT 95
[2024-02-18 21:32] VITALS: BP 136/73; TEMP 97.7; O2SAT 96
[2024-02-19 05:58] LABS: BASO % 0.4 % (0.0-1.0); EOS # 0.4 10^3/uL (0.0-0.5); EOS % 8.8 % (0.0-3.0); HEMATOCRIT 26.5 % (42.0-52.0); HEMOGLOBIN 8.3 g/dl (13.5-17.5); LYMPH # 1.7 10^3/uL (1.5-5.0); LYMPH % 35.4 % (24.0-44.0); MEAN CORPUSCULAR HEMOGLOBIN 28.7 pg (27.0-33.0); MEAN CORPUSCULAR HGB CONC 31.3 g/dl (32.0-36.5); MEAN CORPUSCULAR VOLUME 91.7 fl (80.0-96.0); MONO # 0.4 10^3/uL (0.0-0.8); NEUTROPHILS # 2.3 10^3/uL (1.5-8.5); NEUTROPHILS % 47.2 % (36.0-66.0); PLATELET COUNT, AUTOMATED 225 10^3/uL (150-450); RED BLOOD COUNT 2.89 10^6/uL (4.30-6.10); WHITE BLOOD COUNT 4.8 10^3/uL (4.0-10.0)
[2024-02-19 06:22] LABS: BLOOD UREA NITROGEN 25 MG/DL (9-23); CALCIUM LEVEL 8.7 MG/DL (8.3-10.6); CARBON DIOXIDE LEVEL 29 MMOL/L (20-31); CHLORIDE LEVEL 110 MMOL/L (98-107); CREATININE FOR GFR 1.17 MG/DL (0.70-1.30); GLOMERULAR FILTRATION RATE > 60.0 (>42); GLUCOSE, FASTING 155 MG/DL (74-106); MAGNESIUM LEVEL 1.7 MG/DL (1.8-2.4); POTASSIUM SERUM 4.3 MMOL/L (3.5-5.1); SODIUM LEVEL 144 MMOL/L (136-145)
[2024-02-19 07:14] VITALS: BP 150/74; TEMP 97.6; O2SAT 97
[2024-02-19] MEDS: MAG SULF 1GM/100ML (MAG RUN) 1 GM in IV 1 EA IV SCH (08:00)
[2024-02-19 08:34] VITALS: BP 152/81
[2024-02-19] MEDS: MAGNESIUM OXIDE 400MG TAB (MAG-OX) PO ONE (10:25)
[2024-02-19 13:45] VITALS: BP 133/74; TEMP 97.7; O2SAT 96
== END 2024-02-19 15:50 | disposition home health service (06) | DRG 698 ==
LOC: M ED 17:27 → M ED INP 21:37 → ENRESERV 02-11 02:51 → M PCU 02-11 03:26 → M MS5PR 02-15 12:30
PROVIDERS: ADMIT Internal Medicine; ATTEND Student in an Organized Health Care Education/Training Program
DX: T83.511A Infection and inflammatory reaction due to indwelling urethral catheter, initial encounter (principal); G93.41 Metabolic encephalopathy; K59.2 Neurogenic bowel, not elsewhere classified; G82.20 Paraplegia, unspecified; I48.20 Chronic atrial fibrillation, unspecified; N17.9 Acute kidney failure, unspecified; N13.30 Unspecified hydronephrosis; E87.5 Hyperkalemia; N39.0 Urinary tract infection, site not specified; D63.8 Anemia in other chronic diseases classified elsewhere; I95.1 Orthostatic hypotension; E78.00 Pure hypercholesterolemia, unspecified; I12.9 Hypertensive chronic kidney disease with stage 1 through stage 4 chronic kidney disease, or unspecified chronic kidney disease; K44.9 Diaphragmatic hernia without obstruction or gangrene; K21.9 Gastro-esophageal reflux disease without esophagitis; N31.9 Neuromuscular dysfunction of bladder, unspecified; N40.0 Benign prostatic hyperplasia without lower urinary tract symptoms; N18.30 Chronic kidney disease, stage 3 unspecified; L89.152 Pressure ulcer of sacral region, stage 2; F32.A Depression, unspecified; E10.22 Type 1 diabetes mellitus with diabetic chronic kidney disease; F03.90 Unspecified dementia, unspecified severity, without behavioral disturbance, psychotic disturbance, mood disturbance, and anxiety; N52.9 Male erectile dysfunction, unspecified; Z99.3 Dependence on wheelchair; Z98.49 Cataract extraction status, unspecified eye; Z79.01 Long term (current) use of anticoagulants; Z79.899 Other long term (current) drug therapy; Z88.5 Allergy status to narcotic agent; Z88.6 Allergy status to analgesic agent; Z88.8 Allergy status to other drugs, medicaments and biological substances; Z91.040 Latex allergy status; Z86.73 Personal history of transient ischemic attack (TIA), and cerebral infarction without residual deficits; Z86.16 Personal history of COVID-19

== ENCOUNTER → 2024-03-21 | Outpatient (REF) | payer MEDICARE, BC ==
[~2024-03-21] MED LIST changes: +ANUS2.5C2 TOP; +ONDA-282 PO; -ONDA4TAB6 PO
[2024-03-21 16:02] LABS: ALBUMIN 2.2 G/DL (3.2-5.2); BILIRUBIN,TOTAL 0.2 MG/DL (0.3-1.2); CALCIUM LEVEL 8.7 MG/DL (8.3-10.6); CREATININE FOR GFR 1.25 MG/DL (0.70-1.30); GLOMERULAR FILTRATION RATE 59.6 (>42); POTASSIUM SERUM 4.1 MMOL/L (3.5-5.1); TOTAL PROTEIN 5.3 G/DL (5.7-8.2)
[2024-03-21 16:13] LABS: HEMOGLOBIN A1c 7.4 % (4.0-6.0)
== END ==
LOC: M LAB REF 15:05
PROVIDERS: ATTEND Family Medicine
DX: E11.69 Type 2 diabetes mellitus with other specified complication (principal)

== ENCOUNTER → 2024-03-24 | Outpatient (REF) | payer MEDICARE, BC | LOC: M SMT 17:06 | PROVIDERS: ATTEND Urology | DX: N39.0 Urinary tract infection, site not specified (principal) ==

== ENCOUNTER 2024-06-19 21:06 | Inpatient (IN) | payer MEDICARE, OTHER ==
[~2024-06-19] VITALS: Ht 172.7 cm; Wt 58.4 kg
[2024-06-19] MEDS: NS 1,000 ML IV SCH (21:25)
[2024-06-19] MEDS: LIDOCAINE 2% 5ML JELLY UROJET TOP ONE (21:25)
[2024-06-19] MEDS: ACETAMINOPHEN 325MG SUPP PR ONE (21:25)
[2024-06-19] MEDS: ACETAMINOPHEN 650MG SUPP PR ONE (21:25)
[2024-06-19 22:08] LABS: VENOUS HCO3 20.1 MMOL/L (23.0-27.0); VENOUS O2 SATURATION 58.6 % (60.0-80.0); VENOUS PARTIAL PRESSURE CO2 51.2 mmHg (38.0-50.0); VENOUS PARTIAL PRESSURE O2 34.2 mmHg (30.0-50.0); VENOUS PH 7.212 UNITS (7.330-7.430); VENOUS STANDARD HCO3 17.2 MMOL/L; VENOUS TOTAL CO2 21.7 MMOL/L (24.0-28.0)
[2024-06-19 22:15] LABS: BASO # 0.1 10^3/uL (0.0-0.2); BASO % 0.4 % (0.0-1.0); EOS % 0.1 % (0.0-3.0); HEMATOCRIT 43.6 % (42.0-52.0); HEMOGLOBIN 14.1 g/dl (13.5-17.5); LYMPH % 8.4 % (24.0-44.0); MEAN CORPUSCULAR HEMOGLOBIN 28.7 pg (27.0-33.0); MEAN CORPUSCULAR HGB CONC 32.3 g/dl (32.0-36.5); MEAN CORPUSCULAR VOLUME 88.6 fl (80.0-96.0); MONO # 0.9 10^3/uL (0.0-0.8); MONO % 8.2 % (2.0-8.0); NEUTROPHILS # 9.5 10^3/uL (1.5-8.5); NEUTROPHILS % 82.6 % (36.0-66.0); PLATELET COUNT, AUTOMATED 365 10^3/uL (150-450); RED BLOOD COUNT 4.92 10^6/uL (4.30-6.10); WHITE BLOOD COUNT 11.5 10^3/uL (4.0-10.0)
[2024-06-19 22:44] LABS: BILIRUBIN,DIRECT 0.3 MG/DL (<0.4); BILIRUBIN,TOTAL 0.8 MG/DL (0.3-1.2); CALCIUM LEVEL 9.7 MG/DL (8.3-10.6); CREATININE FOR GFR 1.95 MG/DL (0.70-1.30); GLOMERULAR FILTRATION RATE 35.7 (>42); POTASSIUM SERUM 4.5 MMOL/L (3.5-5.1)
[2024-06-19 22:46] LABS: THYROID STIMULATING HORMONE 2.705 uIU/ML (0.55-4.78)
[2024-06-19] MEDS: NS 500 ML IV ONE (23:10)
[2024-06-19] MEDS: CEFEPIME HCL 1 GM in D5W MINI-BAG PLUS 50 ML IV ONE (23:10)
[2024-06-20] MEDS ORDERED: CRAN500C11 PO (00:08)
[2024-06-20] MEDS ORDERED: HOME MED LIST COMPLETE! XX SCH (00:10)
[2024-06-20] MEDS ORDERED: NS 1,000 ML IV SCH (00:30)
[2024-06-20] MEDS ORDERED: MAALOX 30 ML SUSP *UDC PO PRN (00:30)
[2024-06-20] MEDS ORDERED: DEXTROSE 50% 50ML SYRINGE IV PRN (00:30)
[2024-06-20] MEDS ORDERED: GLUCOSE 4 GM CHEW PO PRN (00:30)
[2024-06-20] MEDS ORDERED: ONDANSETRON 4MG 2ML VIAL IV PRN (00:30)
[2024-06-20] MEDS ORDERED: GLUCAGON INJ 1MG VIAL SC PRN (00:30)
[2024-06-20] MEDS ORDERED: MOM 30ML SUSPENSION UDC PO PRN (00:30)
[2024-06-20] MEDS ORDERED: BISACODYL 10MG SUPP PR PRN (01:15)
[2024-06-20] MEDS ORDERED: PILL CUTTER 1 EACH XX PRN (01:25)
[2024-06-20 02:32] LABS: VENOUS BASE EXCESS -10.3 (-2.0-2.0); VENOUS HCO3 16.4 MMOL/L (23.0-27.0); VENOUS O2 SATURATION 94.9 % (60.0-80.0); VENOUS PARTIAL PRESSURE CO2 38.9 mmHg (38.0-50.0); VENOUS PARTIAL PRESSURE O2 83.9 mmHg (30.0-50.0); VENOUS PH 7.242 UNITS (7.330-7.430); VENOUS STANDARD HCO3 16.3 MMOL/L; VENOUS TOTAL CO2 17.6 MMOL/L (24.0-28.0)
[2024-06-20 02:55] VITALS: BP 111/77; TEMP 98.2; O2SAT 94
[2024-06-20 02:58] LABS: HEMOGLOBIN 13.1 g/dl (13.5-17.5); MEAN CORPUSCULAR HEMOGLOBIN 28.9 pg (27.0-33.0); MEAN CORPUSCULAR VOLUME 90.5 fl (80.0-96.0); PLATELET COUNT, AUTOMATED 315 10^3/uL (150-450); RED BLOOD COUNT 4.53 10^6/uL (4.30-6.10); WHITE BLOOD COUNT 15.4 10^3/uL (4.0-10.0)
[2024-06-20] MEDS: SODIUM BICARBONATE 150 MEQ in STERILE WATER LITER BAG 1,000 ML IV SCH ×2 (03:37)
[2024-06-20 03:46] LABS: PROCALCITONIN 0.48 ng/ml
[2024-06-20 03:49] LABS: ALBUMIN 2.8 G/DL (3.2-5.2); BILIRUBIN,TOTAL 0.7 MG/DL (0.3-1.2); CALCIUM LEVEL 9.2 MG/DL (8.3-10.6); CREATININE FOR GFR 1.92 MG/DL (0.70-1.30); GLOMERULAR FILTRATION RATE 36.3 (>42); MAGNESIUM LEVEL 1.5 MG/DL (1.8-2.4); TOTAL PROTEIN 6.5 G/DL (5.7-8.2)
[2024-06-20] MEDS: NS 500 ML IV ONE (03:50)
[2024-06-20 05:00] VITALS: O2SAT 97
[2024-06-20] MEDS: MAG SULF 1GM/100ML (MAG RUN) 1 GM in IV 1 EA IV SCH (06:11)
[2024-06-20 08:48] LABS: CALCIUM LEVEL 8.9 MG/DL (8.3-10.6); CREATININE FOR GFR 1.78 MG/DL (0.70-1.30); GLOMERULAR FILTRATION RATE 39.7 (>42); MAGNESIUM LEVEL 1.8 MG/DL (1.8-2.4)
[2024-06-20 08:49] LABS: ACETONE/KETONE 0.18 MMOL/L (0.02-0.27)
[2024-06-20] MEDS ORDERED: DOCUSATE SODIUM 100MG CAPSULE PO SCH (09:00)
[2024-06-20] MEDS ORDERED: FERROUS SULFATE 325MG TAB PO SCH (09:00)
[2024-06-20] MEDS ORDERED: GABAPENTIN 100 MG CAP PO SCH (09:00)
[2024-06-20] MEDS ORDERED: FOLIC ACID 1MG TAB PO SCH (09:00)
[2024-06-20] MEDS ORDERED: MAGNESIUM GLUCONATE 500 MG TAB PO SCH ×2 (09:00)
[2024-06-20] MEDS ORDERED: METHENAMINE HIPPURATE 1GM TABLET PO SCH (09:00)
[2024-06-20] MEDS ORDERED: SITagliptin 50 MG TAB (JANUVIA) PO SCH (09:00)
[2024-06-20] MEDS ORDERED: VENLAFAXINE **XR** 75MG CAPSULE PO SCH (09:00)
[2024-06-20] MEDS: APIXABAN 5 MG TAB (ELIQUIS) PO SCH (09:17)
[2024-06-20] MEDS: METOPROLOL TART 25 MG TABLET PO SCH (09:19)
[2024-06-20] MEDS: INSULIN LISPRO (NovoLOG) PER UNIT SC SCH ×2 (09:21→20:36)
[2024-06-20] MEDS: CEFEPIME HCL 1 GM in D5W MINI-BAG PLUS 50 ML IV SCH (09:21)
[2024-06-20] MEDS: NS 1,000 ML IV SCH (10:55)
[2024-06-20 12:00] VITALS: BP_SYST 120; BP_SYST 158; BP_DIAS 75; BP_DIAS 82; TEMP 97.2; TEMP 98.2; O2SAT 92; O2SAT 95
[2024-06-20 20:26] VITALS: BP 127/75; TEMP 98.2; O2SAT 93
[2024-06-20] MEDS ORDERED: ATORVASTATIN 20 MG TAB PO SCH (21:00)
[2024-06-20] MEDS ORDERED: PANTOPRAZOLE 40MG TAB (PROTONIX) PO SCH (21:00)
[2024-06-21 04:00] VITALS: BP 128/77; TEMP 98.2; O2SAT 94
[2024-06-21 05:58] LABS: BASO # 0.1 10^3/uL (0.0-0.2); BASO % 0.5 % (0.0-1.0); EOS # 0.5 10^3/uL (0.0-0.5); EOS % 3.4 % (0.0-3.0); HEMATOCRIT 37.2 % (42.0-52.0); HEMOGLOBIN 11.9 g/dl (13.5-17.5); LYMPH # 2.1 10^3/uL (1.5-5.0); LYMPH % 13.6 % (24.0-44.0); MEAN CORPUSCULAR HEMOGLOBIN 28.7 pg (27.0-33.0); MEAN CORPUSCULAR VOLUME 89.6 fl (80.0-96.0); MONO # 1.1 10^3/uL (0.0-0.8); MONO % 7.2 % (2.0-8.0); NEUTROPHILS # 11.3 10^3/uL (1.5-8.5); NEUTROPHILS % 74.8 % (36.0-66.0); PLATELET COUNT, AUTOMATED 271 10^3/uL (150-450); RED BLOOD COUNT 4.15 10^6/uL (4.30-6.10); WHITE BLOOD COUNT 15.1 10^3/uL (4.0-10.0)
[2024-06-21 06:17] LABS: CALCIUM LEVEL 8.6 MG/DL (8.3-10.6); CREATININE FOR GFR 1.34 MG/DL (0.70-1.30); POTASSIUM SERUM 4.3 MMOL/L (3.5-5.1)
[2024-06-21] MEDS: DOCUSATE SODIUM 100MG CAPSULE PO SCH (08:23)
[2024-06-21] MEDS: FOLIC ACID 1MG TAB PO SCH (08:38)
[2024-06-21] MEDS: VENLAFAXINE **XR** 75MG CAPSULE PO SCH (08:38)
[2024-06-21] MEDS: MAGNESIUM GLUCONATE 500 MG TAB PO SCH (08:40)
[2024-06-21] MEDS: GABAPENTIN 100 MG CAP PO SCH (08:40)
[2024-06-21] MEDS: ACETAMINOPHEN TAB 650MG DOSE (2X325MG) PO PRN (08:47)
[2024-06-21] MEDS ORDERED: FERROUS SULFATE 325MG TAB PO SCH (09:00)
[2024-06-21] MEDS: FERROUS SULFATE 325MG TAB PO ONE (10:46)
[2024-06-21 12:00] VITALS: BP 157/84; TEMP 98.4; O2SAT 95
[2024-06-21] MEDS: NS 1,000 ML IV SCH (12:58)
[2024-06-21 20:00] VITALS: BP 126/68; TEMP 97.8; O2SAT 97
[2024-06-21 21:00] VITALS: O2SAT 96
[2024-06-21] MEDS: ATORVASTATIN 20 MG TAB PO SCH (21:00)
[2024-06-21] MEDS: PANTOPRAZOLE 40MG TAB (PROTONIX) PO SCH (21:01)
[2024-06-22 04:00] VITALS: BP 123/77; TEMP 97.9; O2SAT 95
[2024-06-22 06:00] VITALS: O2SAT 95
[2024-06-22 06:58] LABS: BASO # 0.1 10^3/uL (0.0-0.2); BASO % 0.5 % (0.0-1.0); EOS # 0.5 10^3/uL (0.0-0.5); HEMATOCRIT 32.1 % (42.0-52.0); HEMOGLOBIN 10.4 g/dl (13.5-17.5); LYMPH # 1.6 10^3/uL (1.5-5.0); MEAN CORPUSCULAR HEMOGLOBIN 29.1 pg (27.0-33.0); MEAN CORPUSCULAR HGB CONC 32.4 g/dl (32.0-36.5); MEAN CORPUSCULAR VOLUME 89.9 fl (80.0-96.0); MONO # 0.6 10^3/uL (0.0-0.8); NEUTROPHILS # 7.7 10^3/uL (1.5-8.5); NEUTROPHILS % 72.8 % (36.0-66.0); PLATELET COUNT, AUTOMATED 285 10^3/uL (150-450); RED BLOOD COUNT 3.57 10^6/uL (4.30-6.10); WHITE BLOOD COUNT 10.5 10^3/uL (4.0-10.0)
[2024-06-22 07:00] LABS: CALCIUM LEVEL 8.4 MG/DL (8.3-10.6); CREATININE FOR GFR 1.34 MG/DL (0.70-1.30); POTASSIUM SERUM 4.1 MMOL/L (3.5-5.1)
[2024-06-22 07:26] VITALS: BP 135/81; TEMP 98.4; O2SAT 93
[2024-06-22] MEDS: SITagliptin 50 MG TAB (JANUVIA) PO SCH (10:00)
[2024-06-22 12:15] VITALS: BP 102/50; TEMP 97.3; O2SAT 96
[2024-06-22 20:14] VITALS: BP 116/51; TEMP 98.1; O2SAT 96
[2024-06-22 21:14] VITALS: BP 124/70; TEMP 98.2; O2SAT 95
[2024-06-23 01:23] VITALS: O2SAT 96
[2024-06-23 01:24] VITALS: O2SAT 96
[2024-06-23 04:00] VITALS: BP 113/68; TEMP 97.9; O2SAT 96
[2024-06-23 06:04] LABS: BLOOD UREA NITROGEN 26 MG/DL (9-23); CALCIUM LEVEL 8.2 MG/DL (8.3-10.6); CARBON DIOXIDE LEVEL 20 MMOL/L (20-31); CHLORIDE LEVEL 114 MMOL/L (98-107); CREATININE FOR GFR 1.24 MG/DL (0.70-1.30); GLOMERULAR FILTRATION RATE > 60.0 (>42); GLUCOSE, FASTING 174 MG/DL (74-106); SODIUM LEVEL 140 MMOL/L (136-145)
[2024-06-23 07:27] LABS: C REACTIVE PROTEIN QUANTITATIV 8.7 MG/DL (<1.0)
[2024-06-23 07:38] LABS: C REACTIVE PROTEIN QUANTITATIV 19.1 MG/DL (<1.0)
[2024-06-23 07:40] LABS: C REACTIVE PROTEIN QUANTITATIV 9.8 MG/DL (<1.0)
[2024-06-23 08:07] LABS: C REACTIVE PROTEIN QUANTITATIV 17.6 MG/DL (<1.0)
[2024-06-23 08:18] LABS: BASO # 0.1 10^3/uL (0.0-0.2); BASO % 0.6 % (0.0-1.0); EOS # 0.4 10^3/uL (0.0-0.5); EOS % 4.7 % (0.0-3.0); HEMATOCRIT 31.2 % (42.0-52.0); LYMPH # 1.6 10^3/uL (1.5-5.0); LYMPH % 18.3 % (24.0-44.0); MEAN CORPUSCULAR HEMOGLOBIN 28.7 pg (27.0-33.0); MEAN CORPUSCULAR HGB CONC 32.1 g/dl (32.0-36.5); MEAN CORPUSCULAR VOLUME 89.7 fl (80.0-96.0); MONO # 0.9 10^3/uL (0.0-0.8); MONO % 9.9 % (2.0-8.0); NEUTROPHILS # 5.8 10^3/uL (1.5-8.5); PLATELET COUNT, AUTOMATED 251 10^3/uL (150-450); RED BLOOD COUNT 3.48 10^6/uL (4.30-6.10); WHITE BLOOD COUNT 8.8 10^3/uL (4.0-10.0)
[2024-06-23 08:44] VITALS: BP 127/71
[2024-06-23] MEDS ORDERED: FOLI1TAB11 PO (11:18)
[2024-06-23] MEDS ORDERED: FERR1TAB8 PO (11:18)
[2024-06-23 12:00] VITALS: BP 128/66; TEMP 98.1; O2SAT 96
[2024-06-24] MEDS ORDERED: FERROUS SULFATE 325MG TAB PO SCH (09:00)
== END 2024-06-23 14:17 | disposition home health service (06) | DRG 698 ==
LOC: M ED 21:06 → EDBD 21:06 → M ED INP 23:41 → M MSPAV 06-20 02:48
PROVIDERS: ADMIT Family Medicine; ATTEND Internal Medicine
DX: T83.511A Infection and inflammatory reaction due to indwelling urethral catheter, initial encounter (principal); G93.41 Metabolic encephalopathy; N17.9 Acute kidney failure, unspecified; K59.2 Neurogenic bowel, not elsewhere classified; G82.20 Paraplegia, unspecified; E87.20 Acidosis, unspecified; N39.0 Urinary tract infection, site not specified; I48.91 Unspecified atrial fibrillation; E11.22 Type 2 diabetes mellitus with diabetic chronic kidney disease; D63.8 Anemia in other chronic diseases classified elsewhere; E11.42 Type 2 diabetes mellitus with diabetic polyneuropathy; I95.1 Orthostatic hypotension; L89.152 Pressure ulcer of sacral region, stage 2; E78.00 Pure hypercholesterolemia, unspecified; I12.9 Hypertensive chronic kidney disease with stage 1 through stage 4 chronic kidney disease, or unspecified chronic kidney disease; K21.9 Gastro-esophageal reflux disease without esophagitis; N18.30 Chronic kidney disease, stage 3 unspecified; N40.0 Benign prostatic hyperplasia without lower urinary tract symptoms; F32.A Depression, unspecified; F03.90 Unspecified dementia, unspecified severity, without behavioral disturbance, psychotic disturbance, mood disturbance, and anxiety; Z90.79 Acquired absence of other genital organ(s); Z98.49 Cataract extraction status, unspecified eye; Z90.01 Acquired absence of eye; Z99.3 Dependence on wheelchair; Z11.52 Encounter for screening for COVID-19; Z79.01 Long term (current) use of anticoagulants; Z79.899 Other long term (current) drug therapy; Z88.5 Allergy status to narcotic agent; Z88.8 Allergy status to other drugs, medicaments and biological substances; Z86.73 Personal history of transient ischemic attack (TIA), and cerebral infarction without residual deficits; Z91.040 Latex allergy status

== ENCOUNTER 2024-09-27 04:57 | Inpatient (IN) | payer MEDICARE, OTHER ==
[~2024-09-27] VITALS: Ht 172.7 cm; Wt 56.2 kg
[2024-09-27] VITALS (57 sets, daily range): BP systolic 71–186; BP diastolic 32–92; TEMP 97.3–97.7; O2SAT 83–100
[~2024-09-27 04:57] MED LIST changes: +CEFD1CAP9 PO; +CVS500CA5 PO; +FERR1TAB8 PO; -ROSU20TA61 PO; +ROSU20TA86 PO; +ZYVO1TAB PO
[2024-09-27] MEDS: NS (Normal Saline) 0.9% 1,000 ML IV ONE ×3 (05:25→05:35)
[2024-09-27] MEDS: ETOMIDATE INJ 20MG/10ML VIAL IV STA (05:27)
[2024-09-27 05:40] LABS: HEMATOCRIT 33.9 % (42.0-52.0); HEMOGLOBIN 10.6 g/dl (13.5-17.5); MEAN CORPUSCULAR HEMOGLOBIN 28.7 pg (27.0-33.0); MEAN CORPUSCULAR HGB CONC 31.3 g/dl (32.0-36.5); MEAN CORPUSCULAR VOLUME 91.9 fl (80.0-96.0); PLATELET COUNT, AUTOMATED 194 10^3/uL (150-450); RED BLOOD COUNT 3.69 10^6/uL (4.30-6.10); WHITE BLOOD COUNT 10.4 10^3/uL (4.0-10.0)
[2024-09-27 05:43] LABS: ABG BASE EXCESS -7.1 (-2.0-2.0); ABG HCO3 17.9 MMOL/L (22.0-26.0); ABG O2 SATURATION 96.6 % (95.0-99.0); ABG PARTIAL PRESSURE CO2 34.4 mmHg (35.0-45.0); ABG PARTIAL PRESSURE O2 97.1 mmHg (75.0-100.0); ABG STANDARD HCO3 18.6 MMOL/L. (22.0-26.0); ABG pH (ARTERIAL) 7.335 UNITS (7.350-7.450)
[2024-09-27 06:11] LABS: CK-MB VALUE MASS < 1.0 NG/ML (<3.6); LYMPHOCYTES 9 % (16-44); MONOCYTES 7 % (0-5); NEUTROPHILS 74 % (28-66); PLATELET ESTIMATE NORMAL (NORMAL)
[2024-09-27 06:12] LABS: ANISOCYTOSIS 1+; OVALOCYTES 1+; POIKILOCYTOSIS 1+
[2024-09-27 06:13] LABS: MICROCYTOSIS 1+
[2024-09-27 06:14] LABS: CPK CREATINE PHOSPHOKINASE 66 U/L (46-171); MB/CK RELATIVE INDEX 1.51 (< OR =4)
[2024-09-27 06:15] LABS: THYROID STIMULATING HORMONE 1.255 uIU/ML (0.55-4.78); THYROXINE (T4) 4.4 UG/DL (4.5-10.9)
[2024-09-27 06:20] LABS: PROCALCITONIN 2.42 ng/ml
[2024-09-27 06:22] LABS: ALBUMIN 2.3 G/DL (3.2-5.2); ALKALINE PHOSPHATASE 79 U/L (40-129); ALT/SGPT < 9 U/L (7.0-40); AST/SGOT < 8 U/L (<34); BILIRUBIN,DIRECT 0.1 MG/DL (<0.4); BILIRUBIN,TOTAL 0.2 MG/DL (0.3-1.2); BLOOD UREA NITROGEN 36 MG/DL (9-23); CARBON DIOXIDE LEVEL 22 MMOL/L (20-31); CHLORIDE LEVEL 115 MMOL/L (98-107); CREATININE FOR GFR 2.13 MG/DL (0.70-1.30); GLOMERULAR FILTRATION RATE 32.1 (>42); GLUCOSE, FASTING 341 MG/DL (74-106); POTASSIUM SERUM 3.7 MMOL/L (3.5-5.1); SODIUM LEVEL 151 MMOL/L (136-145); TOTAL PROTEIN 6.7 G/DL (5.7-8.2)
[2024-09-27] MEDS: CEFEPIME HCL 1 GM in DEXTROSE 5% (D5W) ADV/MINI-BAG 50 ML IV ONE (07:08)
[2024-09-27] MEDS: MIDAZOLAM 100MG/100ML-0.9%NACL 100 MG in IV 1 EA IV SCH (07:09)
[2024-09-27] MEDS: ROCURONIUM BROMIDE 50MG/5ML VIAL IV SCH (07:15)
[2024-09-27] MEDS: ACETAMINOPHEN *IV* 1,000 MG in IV 1 EA IV ONE (07:52)
[2024-09-27] MEDS ORDERED: HOME MED LIST COMPLETE! XX SCH (08:10)
[2024-09-27] MEDS ORDERED: MIDAZOLAM 100MG/100ML-0.9%NACL 100 MG in IV 1 EA IV SCH (08:30)
[2024-09-27] MEDS ORDERED: VANCOMYCIN HCL 840 MG in IV FLUID PLACE HOLDER 1 EA IV SCH (09:00)
[2024-09-27] MEDS: NOREPINEPHRINE 4MG IN D5 250ML 4 MG in IV 1 EA IV SCH (11:34)
[2024-09-27 11:35] LABS: VENOUS HCO3 17.3 MMOL/L (23.0-27.0); VENOUS O2 SATURATION 97.1 % (60.0-80.0); VENOUS PARTIAL PRESSURE CO2 34.4 mmHg (38.0-50.0); VENOUS PARTIAL PRESSURE O2 109.5 mmHg (30.0-50.0); VENOUS SITE NOT GIVEN; VENOUS STANDARD HCO3 17.9 MMOL/L; VENOUS TOTAL CO2 18.4 MMOL/L (24.0-28.0)
[2024-09-27] MEDS: D5W 1,000 ML IV SCH (11:35)
[2024-09-27] MEDS: VANCOMYCIN 1,000MG/200 ML IV BAG IV ONE (11:40)
[2024-09-27] MEDS: HYDROCORTISONE 100MG/2ML VIAL IV STA (11:48)
[2024-09-27] MEDS: PANTOPRAZOLE 40MG VIAL IV SCH (11:48)
[2024-09-27] MEDS: propofoL 1,000 MG in IV 1 EA IV SCH (12:20)
[2024-09-27] MEDS ORDERED: GLUCAGON INJ 1MG VIAL SC PRN (12:30)
[2024-09-27] MEDS ORDERED: DEXTROSE 50% 50ML SYRINGE IV PRN (12:30)
[2024-09-27] MEDS ORDERED: GLUCOSE 4 GM CHEW PO PRN (12:30)
[2024-09-27] MEDS: HEPARIN SOD (PORCINE) 5000UNITS/ML 1ML VIAL/SYRINGE SC SCH (13:41)
[2024-09-27] MEDS: INSULIN LISPRO (NovoLOG) PER UNIT SC SCH (13:42)
[2024-09-27] MEDS: VANCOMYCIN HCL 500 MG in DEXTROSE 5% (D5W) MINI-BAG PLU 100 ML IV SCH (17:44)
[2024-09-27] MEDS: LR 1,000 ML IV SCH (18:35)
[2024-09-27] MEDS: CEFEPIME HCL 1 GM in DEXTROSE 5% (D5W) ADV/MINI-BAG 50 ML IV SCH (20:17)
[2024-09-28] VITALS (61 sets, daily range): BP systolic 81–165; BP diastolic 48–81; TEMP 96–97.2; O2SAT 88–100
[2024-09-28 04:24] LABS: HEMATOCRIT 24.3 % (42.0-52.0); MEAN CORPUSCULAR HEMOGLOBIN 28.3 pg (27.0-33.0); MEAN CORPUSCULAR HGB CONC 31.7 g/dl (32.0-36.5); MEAN CORPUSCULAR VOLUME 89.3 fl (80.0-96.0); PLATELET COUNT, AUTOMATED 183 10^3/uL (150-450); RED BLOOD COUNT 2.72 10^6/uL (4.30-6.10); WHITE BLOOD COUNT 12.9 10^3/uL (4.0-10.0)
[2024-09-28 04:25] LABS: HEMOGLOBIN 7.7 g/dl (13.5-17.5)
[2024-09-28 04:47] LABS: ANISOCYTOSIS 1+; LYMPHOCYTES 19 % (16-44); MONOCYTES 7 % (0-5); NEUTROPHILS 73 % (28-66); PLATELET CLUMPS SMALL AMT; PLATELET ESTIMATE NORMAL (NORMAL); POIKILOCYTOSIS 1+
[2024-09-28 05:18] LABS: ALBUMIN 1.7 G/DL (3.2-5.2); ALKALINE PHOSPHATASE 66 U/L (40-129); ALT/SGPT < 9 U/L (7.0-40); AST/SGOT 8 U/L (<34); BILIRUBIN,TOTAL 0.2 MG/DL (0.3-1.2); BLOOD UREA NITROGEN 39 MG/DL (9-23); CALCIUM LEVEL 7.6 MG/DL (8.3-10.6); CARBON DIOXIDE LEVEL 19 MMOL/L (20-31); CHLORIDE LEVEL 113 MMOL/L (98-107); CREATININE FOR GFR 1.96 MG/DL (0.70-1.30); GLOMERULAR FILTRATION RATE 35.4 (>42); GLUCOSE, FASTING 354 MG/DL (74-106); MAGNESIUM LEVEL 1.5 MG/DL (1.8-2.4); PHOSPHORUS LEVEL 1.8 MG/DL (2.4-5.1); POTASSIUM SERUM 3.1 MMOL/L (3.5-5.1); SODIUM LEVEL 143 MMOL/L (136-145); TOTAL PROTEIN 5.4 G/DL (5.7-8.2)
[2024-09-28] MEDS: MAG SULF 1GM/100ML (MAG RUN) 1 GM in IV 1 EA IV SCH (05:40)
[2024-09-28] MEDS: POTASSIUM PHOSPHATE INJ 30 MMOL in D5W 500 ML IV ONE (08:40)
[2024-09-28] MEDS: LR 1,000 ML IV SCH (11:30)
[2024-09-28] MEDS: VANCOMYCIN HCL 500 MG in DEXTROSE 5% (D5W) MINI-BAG PLU 100 ML IV SCH (14:15)
[2024-09-28 16:31] LABS: IONIZED CALCIUM 4.7 MG/DL (4.5-5.3)
[2024-09-28 16:35] LABS: BASO % 0.1 % (0.0-1.0); EOS # 0.1 10^3/uL (0.0-0.5); EOS % 0.5 % (0.0-3.0); HEMATOCRIT 24.1 % (42.0-52.0); HEMOGLOBIN 7.8 g/dl (13.5-17.5); LYMPH # 1.7 10^3/uL (1.5-5.0); LYMPH % 12.7 % (24.0-44.0); MEAN CORPUSCULAR HEMOGLOBIN 28.4 pg (27.0-33.0); MEAN CORPUSCULAR HGB CONC 32.4 g/dl (32.0-36.5); MEAN CORPUSCULAR VOLUME 87.6 fl (80.0-96.0); MONO # 1.6 10^3/uL (0.0-0.8); MONO % 11.7 % (2.0-8.0); NEUTROPHILS # 10.1 10^3/uL (1.5-8.5); NEUTROPHILS % 74.2 % (36.0-66.0); PLATELET COUNT, AUTOMATED 200 10^3/uL (150-450); RED BLOOD COUNT 2.75 10^6/uL (4.30-6.10); WHITE BLOOD COUNT 13.6 10^3/uL (4.0-10.0)
[2024-09-28 17:04] LABS: CALCIUM LEVEL 8.3 MG/DL (8.3-10.6); CREATININE FOR GFR 1.85 MG/DL (0.70-1.30); GLOMERULAR FILTRATION RATE 37.8 (>42); MAGNESIUM LEVEL 1.9 MG/DL (1.8-2.4); PHOSPHORUS LEVEL 3.9 MG/DL (2.4-5.1); POTASSIUM SERUM 3.3 MMOL/L (3.5-5.1)
[2024-09-28] MEDS: KCL 20MEQ IN 100ML SWI (KRUN) 20 MEQ in IV 1 EA IV ONE ×2 (19:29→20:29)
[2024-09-28] MEDS: LEVEMIR (INSULIN DETEMIR) 1 UNITS/0.01ML SC SCH (21:52)
[2024-09-29] VITALS (16 sets, daily range): BP systolic 113–156; BP diastolic 64–76; TEMP 97.4–98.2; O2SAT 85–94
[2024-09-29 03:50] LABS: HEMATOCRIT 24.5 % (42.0-52.0); HEMOGLOBIN 8.2 g/dl (13.5-17.5); MEAN CORPUSCULAR HEMOGLOBIN 28.4 pg (27.0-33.0); MEAN CORPUSCULAR HGB CONC 33.5 g/dl (32.0-36.5); MEAN CORPUSCULAR VOLUME 84.8 fl (80.0-96.0); PLATELET COUNT, AUTOMATED 238 10^3/uL (150-450); RED BLOOD COUNT 2.89 10^6/uL (4.30-6.10); WHITE BLOOD COUNT 13.8 10^3/uL (4.0-10.0)
[2024-09-29 04:17] LABS: ALBUMIN 1.8 G/DL (3.2-5.2); ALKALINE PHOSPHATASE 77 U/L (40-129); ALT/SGPT < 9 U/L (7.0-40); AST/SGOT 13 U/L (<34); BILIRUBIN,TOTAL 0.3 MG/DL (0.3-1.2); BLOOD UREA NITROGEN 32 MG/DL (9-23); CALCIUM LEVEL 8.4 MG/DL (8.3-10.6); CARBON DIOXIDE LEVEL 18 MMOL/L (20-31); CHLORIDE LEVEL 112 MMOL/L (98-107); GLOMERULAR FILTRATION RATE 41.7 (>42); GLUCOSE, FASTING 118 MG/DL (74-106); POTASSIUM SERUM 4.3 MMOL/L (3.5-5.1); SODIUM LEVEL 137 MMOL/L (136-145); TOTAL PROTEIN 5.5 G/DL (5.7-8.2)
[2024-09-29 04:18] LABS: EOSINOPHILS 1 % (0-3); LYMPHOCYTES 7 % (16-44); MONOCYTES 6 % (0-5); NEUTROPHILS 86 % (28-66); PLATELET ESTIMATE NORMAL (NORMAL); POLYCHROMASIA 1+
[2024-09-29 04:19] LABS: ANISOCYTOSIS 1+
[2024-09-29] MEDS ORDERED: SCOPOLAMINE 1MG TRANSDERMAL PATCH TOP PRN (11:05)
[2024-09-29] MEDS ORDERED: MORPHINE 2 MG/ML 1ML VIAL IV PRN (11:05)
[2024-09-29] MEDS ORDERED: ONDANSETRON 4MG ORAL DISINTEGRATING TAB PO PRN (11:05)
[2024-09-29] MEDS: HYOSCYAMINE SULFATE 0.125 MG SUBL TABLET PO PRN (11:32)
[2024-09-29] MEDS: HYDROMORPHONE HCL 0.5 MG/ 0.5 ML SYRINGE IV SCH (12:00)
[2024-09-29] MEDS ORDERED: MORPHINE 10MG/0.5ML ORAL CONCENTRATE SOLUTION U/D SL SCH (13:00)
[2024-09-29] MEDS: ATROPINE SULFATE 1% OPHTH SOLN 2ML BTL SL PRN (13:20)
[2024-09-29] MEDS: HYOSCYAMINE SULFATE 0.125 MG SUBL TABLET SL SCH (15:54)
[2024-09-30] MEDS: LORazepam 2 MG/ML 1ML VIAL IV PRN (14:05)
[2024-10-01] MEDS: HYDROMORPHONE HCL 0.5 MG/ 0.5 ML SYRINGE IV PRN (00:38)
== END 2024-10-01 08:14 | disposition expired | DRG 871 ==
LOC: M ED 04:57 → EDBD 04:57 → M ED INP 08:29 → M ICU 09:16 → M MSPAV 09-29 14:47
PROVIDERS: ADMIT Internal Medicine Pulmonary Disease; ATTEND Family Medicine
PROC: 02HV33Z Insertion of Infusion Device into Superior Vena Cava, Percutaneous Approach (ICD-10-PCS; principal; 2024-09-27)
PROC: 0BH17EZ Insertion of Endotracheal Airway into Trachea, Via Natural or Artificial Opening (ICD-10-PCS; 2024-09-27)
PROC: 5A1935Z Respiratory Ventilation, Less than 24 Consecutive Hours (ICD-10-PCS; 2024-09-27)
DX: A41.9 Sepsis, unspecified organism (principal); G93.41 Metabolic encephalopathy; J96.01 Acute respiratory failure with hypoxia; R65.21 Severe sepsis with septic shock; G82.20 Paraplegia, unspecified; E87.20 Acidosis, unspecified; N17.9 Acute kidney failure, unspecified; I48.20 Chronic atrial fibrillation, unspecified; I13.0 Hypertensive heart and chronic kidney disease with heart failure and stage 1 through stage 4 chronic kidney disease, or unspecified chronic kidney disease; I50.30 Unspecified diastolic (congestive) heart failure; E87.1 Hypo-osmolality and hyponatremia; N39.0 Urinary tract infection, site not specified; K59.2 Neurogenic bowel, not elsewhere classified; F03.90 Unspecified dementia, unspecified severity, without behavioral disturbance, psychotic disturbance, mood disturbance, and anxiety; I27.20 Pulmonary hypertension, unspecified; E11.22 Type 2 diabetes mellitus with diabetic chronic kidney disease; N18.9 Chronic kidney disease, unspecified; Z51.5 Encounter for palliative care; Z66 Do not resuscitate; E78.5 Hyperlipidemia, unspecified; E83.39 Other disorders of phosphorus metabolism; F32.A Depression, unspecified; N31.9 Neuromuscular dysfunction of bladder, unspecified; E83.42 Hypomagnesemia; R31.9 Hematuria, unspecified; E87.6 Hypokalemia; D63.8 Anemia in other chronic diseases classified elsewhere; K21.9 Gastro-esophageal reflux disease without esophagitis; Z79.01 Long term (current) use of anticoagulants; Z99.3 Dependence on wheelchair; Z79.899 Other long term (current) drug therapy; Z88.5 Allergy status to narcotic agent; Z93.6 Other artificial openings of urinary tract status; Z88.6 Allergy status to analgesic agent; Z88.8 Allergy status to other drugs, medicaments and biological substances